=== PATIENT | male | born 1960 | race Caucasian/White ===

== ENCOUNTER 2018-05-15 08:21 | Inpatient (IN) | payer OTHER ==
[~2018-05-15] VITALS: Ht 167.6 cm; Wt 76.3 kg
[2018-05-15] MEDS ORDERED: HYDROmorphONE 1 MG/ML SYG IV STA (08:54)
[2018-05-15] MEDS ORDERED: ONDANSETRON 4 MG INJ IV STA (08:54)
--- NOTE | 2018-05-15 09:09 | ERD ---
ER Documentation Chief Complaint Chief Complaint Pt reports upper abd pain since 1600 HPI This is a 57-year-old male with a history of CHF, polio, complaining of 4 AM onset of diffuse severe abdominal pain that is much worse when he walks and better when he lays still. Pain is described as sharp. He had some nausea vomiting and diarrhea as well as was nonbloody and nonbilious. Denies any chest pain or shortness of breath. Denies any prior abdominal complaints ROS All systems reviewed and are negative except as per history of present illness. Medications Home Meds Reported Medications Nitroglycerin* (Nitroglycerin* SL) 0.4 Mg Tab.subl, 0.4 MG SL Q5MIN PRN for CHEST PAIN, BOTTLE 05/15/18 Allopurinol* (Allopurinol*) 100 Mg Tablet, 100 MG PO DAILY, TAB 05/15/18 Aspirin* (Aspirin* EC) 81 Mg Tablet.dr, 81 MG PO DAILY, TAB 05/15/18 Furosemide* (Furosemide*) 20 Mg Tablet, 20 MG PO BID, #30 TAB 05/15/18 Atorvastatin Calcium* (Atorvastatin Calcium*) 20 Mg Tablet, 20 MG PO QHS, #30 TAB 05/15/18 Omeprazole* (Omeprazole*) 40 Mg Capsule.dr, 40 MG PO DAILY, #30 CAP 05/15/18 Allergies Allergies: Coded Allergies: No Known Allergy (Unverified , 05/15/18) PMhx/Soc History of Surgery: No Anesthesia Reaction: No Hx Neurological Disorder: No Hx Respiratory Disorders: No Hx Cardiac Disorders: Yes (CHF, HTN) Hx Psychiatric Problems: No Hx Miscellaneous Medical Probl: Yes (Polio, Gout) Hx Alcohol Use: No Hx Substance Use: No Hx Tobacco Use: No Smoking Status: Never smoker FmHx Family History: No coronary disease Physical Exam Vitals Vital Signs Date Temp Pulse Resp B/P (MAP) Pulse Ox O2 O2 Flow FiO2 Time Delivery Rate 05/15/18 98.2 84 16 118/84 95 Room Air 10:15 (95) 05/15/18 2 09:00 05/15/18 98.0 82 14 128/96 95 Room Air 08:47 (107) 05/15/18 98.7 78 16 138/95 95 08:24 (109) Physical Exam Const: Well-developed, well-nourished Head: Atraumatic, normocephalic Eyes: Normal Conjunctiva, PERRLA, EOMI, normal sclera, no nystagmus ENT: Normal External Ears, Nose and Mouth, moist mucus membranes. Neck: Full range of motion. No meningismus, no lymphadenopathy. Resp: [No increased work of breathing, bilateral basilar rhonchi Cardio: Regular rate and rhythm, no murmurs, S1 S2 present Abd: Soft, she is moderate to severe tenderness, non distended. Normal bowel sounds, diffuse guarding, no pulsitile abdominal masses or bruits Skin: No petechiae or rashes, no ecchymosis , no maculopapular rash Back: No midline or flank tenderness Ext: No cyanosis, or edema, FROM x 4, normal inspection, neurovascu larly intact x 4 Neur: Awake and alert, STR 5/5 x 4, sensation intact x 4, no focal findings, cerebellum intact Psych: Normal Mood and Affect Result Diagram: 05/15/18 0909 05/15/18 0909 Results 24 hrs Laboratory Tests Test 05/15/18 09:09 05/15/18 13:00 White Blood Count 11.8 10^3/ul Red Blood Count 3.98 10^6/ul Hemoglobin 11.8 g/dl Hematocrit 38.0 % Mean Corpuscular Volume 95.5 fl Mean Corpuscular Hemoglobin 29.6 pg Mean Corpuscular Hemoglobin Concent 31.1 g/dl Red Cell Distribution Width 15.8 % Platelet Count 264 10^3/UL Mean Platelet Volume 10.7 fl Immature Granulocytes % 0.800 % Neutrophils % 82.4 % Lymphocytes % 9.6 % Monocytes % 5.8 % Eosinophils % 1.0 % Basophils % 0.4 % Nucleated Red Blood Cells % 0.0 /100WBC Immature Granulocytes # 0.090 10^3/ul Neutrophils # 9.7 10^3/ul Lymphocytes # 1.1 10^3/ul Monocytes # 0.7 10^3/ul Eosinophils # 0.1 10^3/ul Basophils # 0.1 10^3/ul Nucleated Red Blood Cells # 0.0 10^3/ul Sodium Level 140 mmol/L Potassium Level 2.8 mmol/L Chloride Level 105 mmol/L Carbon Dioxide Level 25 mmol/L Anion Gap 10 Blood Urea Nitrogen 18 mg/dl Creatinine 0.72 mg/dl Est Glomerular Filtrat Rate mL/min > 60 mL/min Glucose Level 77 mg/dl Calcium Level 9.2 mg/dl Total Bilirubin 0.6 mg/dl Direct Bilirubin 0.00 mg/dl Indirect Bilirubin 0.6 mg/dl Aspartate Amino Transf (AST/SGOT) 24 IU/L Alanine Aminotransferase (ALT/SGPT) 10 IU/L Alkaline Phosphatase 76 IU/L Troponin I 0.052 ng/ml B-Type Natriuretic Peptide 5260 PG/ML Total Protein 6.3 g/dl Albumin 3.4 g/dl Globulin 2.90 g/dl Albumin/Globulin Ratio 1.17 Lipase 107 U/L Urine Color YELLOW Urine Clarity CLEAR Urine pH 5.0 Urine Specific [place] 1.042 Urine Ketones NEGATIVE mg/dL Urine Nitrite NEGATIVE mg/dL Urine Bilirubin NEGATIVE mg/dL Urine Urobilinogen NEGATIVE mg/dL Urine Leukocyte Esterase NEGATIVE Tami/ul Urine Microscopic RBC 1 /HPF Urine Microscopic WBC 1 /HPF Urine Mucus FEW /HPF Urine Hemoglobin NEGATIVE mg/dL Urine Glucose NEGATIVE mg/dL Urine Total Protein 1+ mg/dl Current Medications Medications Dose Sig/Carmen Start Time Status Last (Trade) Ordered Route PRN Stop Time Admin Dose Reason Admin 1 mg ONCE STAT 05/15/18 DC 05/15/18 Hydromorphone IV 08:54 05/15/18 09:04 HCl 08:56 (Dilaudid) Ondansetron 4 mg ONCE STAT 05/15/18 DC 05/15/18 HCl (Zofran IV 08:54 05/15/18 09:04 Inj) 08:56 IV Flush 10 ml STK-MED 05/15/18 DC (NS 10 ml) ONCE .ROUTE 10:05/15/18 10:16 Sodium 100 ml @ ud STK-MED 05/15/18 DC Chloride ONCE .ROUTE 10:05/15/18 10:16 Iohexol 150 ml STK-MED 05/15/18 DC (Omnipaque ONCE .ROUTE 10:05/15/18 300mg/ ml) 10:16 IV Flush 10 ml STK-MED 05/15/18 DC 05/15/18 (NS 10 ml) ONCE .ROUTE 10:05/15/18 10:39 10:32 Sodium 100 ml @ ud STK-MED 05/15/18 DC 4/2/19 Chloride ONCE .ROUTE 10:31 05/15/18 10:39 10:32 Iohexol 150 ml STK-MED 05/15/18 DC 05/15/18 (Omnipaque ONCE .ROUTE 10:31 05/15/18 10:39 300mg/ ml) 10:32 Potassium 100 ml @ ONCE ONCE 05/15/18 DC Chloride 50 mls/hr IVPB 11:30 05/15/18 11:30 Potassium 40 meq ONCE ONCE 05/15/18 DC 05/15/18 Chloride PO 11:30 05/15/18 11:26 (Potassium 11:31 Chloride Pwd/Soln) Procedures/MDM Ordering MD: LESLIE LAM DO Location: E/R Room/Bed: PROCEDURE: CT Abdomen and Pelvis with contrast. CLINICAL INDICATION: Abdomen and pelvis pain. TECHNIQUE: CT scan of the abdomen and pelvis with contrast was performed. The patient was scanned following the uncomplicated intravenous administration of 100 cc of Omnipaque-300. Coronal and sagittal reformatted images were obtained from the axial source images. Images were reviewed on a high-resolution PACS workstation. Total exam DLP is 873.11 mGy-cm. CTDIvol is 14.91 mGy. One or more of the following dose reduction techniques were used: Automated exposure control, adjustment of the mA and/or kV according to patient size, use of iterative reconstruction technique. DICOM images are available. COMPARISON: None. FINDINGS: The lung bases are normal. There is no pleural effusion or pericardial effusion. The heart is markedly enlarged The liver is normal in size and diffusely decreased attenuation. There is no focal hepatic lesion. The gallbladder is distended but otherwise unremarkable. The bile ducts are normal. The spleen is normal in size. There is a focal region of decreased attenuation anteriorly in the spleen measuring 3.4 x 2.6 cm consistent with a probable infarct. There is no other focal splenic lesion. Both adrenals are normal with no enlargement or mass. The pancreas is unremarkable with no mass or evidence of pancreatitis. Both kidneys demonstrate normal contrast enhancement. There is no renal mass or hydronephrosis. The abdominal aorta is not dilated. There is calcification in the aorta consistent with atherosclerosis. There is no retroperitoneal lymphadenopathy or mass. There is no pelvic lymphadenopathy or mass. The bladder and distal ureters are normal. The periappendiceal region is unremarkable with no evidence of appendicitis. The bowel and mesentery are normal. There is no free fluid or free gas. There are degenerative changes of the spine. The osseous structures are otherwise unremarkable with no fracture or lytic lesion. IMPRESSION: 1. Marked cardiomegaly. 2. Fatty metamorphosis of the liver. 3. Distended but otherwise normal gallbladder. 4. Probable small splenic infarct. 5. Atherosclerosis. 6. Degenerative changes of the spine. 7. Otherwise unremarkable CT scan of the abdomen and pelvis. RPTAT: QQ Physician Gaurav Date Time Electronically viewed and signed by Physician Gaurav on 05/15/2018 13:47 KR/ CC: LESLIE LAM DO [id number] Ordering MD: LESLIE LAM DO Location: E/R Room/Bed: PROCEDURE: XR Chest. CLINICAL INDICATION: Chest Pain. TECHNIQUE: AP view of the chest was obtained COMPARISON: None. FINDINGS: No pulmonary consolidation or edema. No effusion or pneumothorax. Moderate cardiomegaly with prominent pulmonary vasculature. No evidence of acute frac ture. IMPRESSION: Moderate cardiomegaly with prominent pulmonary vasculature. Otherwise no evidence of acute cardiopulmonary process. RPTAT: UU Physician Ayesha Date Time Electronically viewed and signed by Physician Ayesha on 05/15/2018 13:30 RF/ CC: LESLIE LAM DO [id number] Patient is elevated BNP with signs of CHF on his chest x-ray and has O2 sats of 90-95% on room air with basilar rhonchi. Will admit him for diuresis carefully monitoring his potassium status. His abdominal CT scan is unremarkable. He also has elevated BNP. We will give a dose of Lasix here Departure Diagnosis: Primary Impression: CHF (congestive heart failure) Heart failure type: unspecified Heart failure chronicity: unspecified Qualified Codes: I50.9 - Heart failure, unspecified Additional Impression: Hypokalemia Condition: Stable LESLIE LAM DO May 15, 2018 09:09
[2018-05-15] MEDS ORDERED: IOHEXOL 300MG/ML 150 ML BTL ONE ×2 (10:15→10:31)
[2018-05-15] MEDS ORDERED: SOD CHLORIDE 0.9% 100 ML ONE ×2 (10:15→10:31)
[2018-05-15] MEDS ORDERED: ATOR20TA38 PO (10:36)
[2018-05-15] MEDS ORDERED: ASPI-817 PO (10:36)
[2018-05-15] MEDS ORDERED: OMEP40CA6 PO (10:36)
[2018-05-15] MEDS ORDERED: FURO20TA3 PO (10:36)
[2018-05-15] MEDS ORDERED: ALLO100T PO (10:37)
[2018-05-15] MEDS ORDERED: NITR0.4T32 SL (10:37)
[2018-05-15] MEDS ORDERED: POTASSIUM CHLORIDE 100 ML IVPB ONE (11:30)
[2018-05-15] MEDS ORDERED: POTASSIUM CHLORIDE 20 MEQ POWDER FOR ORAL SOLN PO ONE (11:30)
[2018-05-15] MEDS ORDERED: ONDANSETRON 4 MG INJ IV PRN ×2 (14:30→15:00)
[2018-05-15] MEDS ORDERED: ACETAMINOPHEN 325 MG TAB PO PRN ×2 (14:30→15:00)
[2018-05-15] MEDS ORDERED: FUROSEMIDE 40 MG INJ IV ONE (14:30)
[2018-05-15] MEDS ORDERED: NACL 0.9% 3 ML SYG IV SCH (15:00)
--- NOTE | 2018-05-15 15:02 | HP ---
Date/Time of Note Date/Time of Note DATE: 05/15/18 TIME: 15:02 Assessment/Plan VTE Prophylaxis Pharmacological prophylaxis: LMWH Lines/Catheters IV [facility]ter [facility]from [facility]): Saline Lock Assessment/Plan Hospital Course 57-year-old male with comorbidities including hypertension, congestive heart failure, gout, and poliomyelitis. The patient came to the emergency room with abdominal pain with negative abdominal imaging. However, the patient was noti josé antonio to have evidence of CHF exacerbation. The patient will be admitted to inpatient setting for further treatment and evaluation. 1. CHF exacerbation, acute on chronic. Systolic versus diastolic dysfunction. -Continue the patient on diuretic therapy. -Obtain cardiology consult -Obtain a 2D echocardiogram to evaluate the left ventricular ejection fraction. 2. Abdominal pain. -Etiology unclear. -CT scan essentially negative -Send stool studies. 3. Dyslipidemia. -Resume statins. 4. Gout. -Resume allopurinol. Plan: The patient will be admitted to inpatient telemetry floor. The patient will be started on a low-cholesterol diet. The patient will be started on DVT prophylaxis. The patient will remain a full code. Activities will be as tolerated. The rest of the patient's management will be based on the clinical course, inputs from consultants, and the results of diagnostic studies. Based on the patient's clinical presentation, he most probably requires at least 1 midnight's stay for further management and evaluation of his clinical presentation. The patient was seen in collaboration with Dr. Trejo. Result Diagram: 05/15/1890805/15/1809 Results 24hrs Laboratory Tests Test 05/15/18 09:09 05/15/18 13:00 White Blood Count 11.8 H Red Blood Count 3.98 L Hemoglobin 11.8 L Hematocrit 38.0 L Mean Corpuscular Volume 95.5 Mean Corpuscular Hemoglobin 29.6 Mean Corpuscular Hemoglobin Concent 31.1 L Red Cell Distribution Width 15.8 H Platelet Count 264 Mean Platelet Volume 10.7 H Immature Granulocytes % 0.800 H Neutrophils % 82.4 H Lymphocytes % 9.6 L Monocytes % 5.8 Eosinophils % 1.0 Basophils % 0.4 Nucleated Red Blood Cells % 0.0 Immature Granulocytes # 0.090 H Neutrophils # 9.7 H Lymphocytes # 1.1 Monocytes # 0.7 Eosinophils # 0.1 Basophils # 0.1 Nucleated Red Blood Cells # 0.0 Sodium Level 140 Potassium Level 2.8 *L Chloride Level 105 Carbon Dioxide Level 25 Anion Gap 10 Blood Urea Nitrogen 18 Creatinine 0.72 Est Glomerular Filtrat Rate mL/min > 60 Glucose Level 77 Calcium Level 9.2 Total Bilirubin 0.6 Direct Bilirubin 0.00 Indirect Bilirubin 0.6 Aspartate Amino Transf (AST/SGOT) 24 Alanine Aminotransferase (ALT/SGPT) 10 L Alkaline Phosphatase 76 Troponin I 0.052 B-Type Natriuretic Peptide 5260 H Total Protein 6.3 Albumin 3.4 Globulin 2.90 Albumin/Globulin Ratio 1.17 Lipase 107 Urine Color YELLOW Urine Clarity CLEAR Urine pH 5.0 Urine Specific [place] 1.042 H Urine Ketones NEGATIVE Urine Nitrite NEGATIVE Urine Bilirubin NEGATIVE Urine Urobilinogen NEGATIVE Urine Leukocyte Esterase NEGATIVE Urine Microscopic RBC 1 Urine Microscopic WBC 1 Urine Mucus FEW A Urine Hemoglobin NEGATIVE Urine Glucose NEGATIVE Urine Total Protein 1+ H HPI/ROS Admit Date/Time Admit Date/Time Hx of Present Illness Reason for admission: Abdominal pain, CHF exacerbation. Consultants 1. Goran Haley DO, Cardiology. This is a 57-year-old male with a past medical history of hypertension, congestive heart failure, dyslipidemia, gout, and poliomyelitis with right lower extremity weakness. The patient came to the emergency room with chief complaint of abdominal pain that started on the morning of 05/15/2018. The patient verbalized the abdominal pain as sharp with no radiation. The patient also verbalized associated nausea and nonbilious, nonbloody vomiting. The patient verbalized that he has been having diarrhea for the past few days. The patient verbalized that the he was recently discharged from [facility] following hospitalization. The patient is a poor historian and was unable to tell me what was the reason for his admission. The patient follows up with Dr. Miranda as outpatient for his cardiac issues. However, recently his insurance coverage he needs and is about to be seen by another outpatient plant associate in the near future. The patient denied any fevers or chills. The patient denied any chest pain or dyspnea. In the emergency room, the patient underwent a CT scan of the abdomen and pelvis that was negative for any acute findings. The patient was noticed to have elevated BNP. The patient's chest x-ray was showing moderate cardiomegaly with prominent pulmonary vasculature. The patient was treated with IV Lasix. The patient was also noticed to be hypokalemic with a potassium of 2.8. The patient was provided with potassium supplements. ROS Constitutional: no complaints Eyes: no complaints ENT: no complaints Respiratory: no complaints Cardiovascular: no complaints Gastrointestinal: pain, diarrhea, nausea, vomiting Genitourinary: no complaints Musculoskeletal: no complaints Skin: rash Neurologic: no complaints Endocrine: no complaints Lymphatic: no complaints Psychological: no complaints Immunologic: no complaints PMH/Family/Social Past Medical History 1. Hypertension. 2. Dyslipidemia. 3. CHF. 4. Poliomyelitis with RLE weakness. 5. Gout. Medications Current Medications Ondansetron HCl (Zofran Inj) 4 mg ER BRIDGE PRN IV NAUSEA/VOMITING; Start 05/15/18 at 14:30; Stop 05/16/18 at 14:29 Acetaminophen (Tylenol Tab) 650 mg ER BRIDGE PRN PO .MILD PAIN 1-3 OR TEMP; Start 05/15/18 at 14:30; Stop 05/16/18 at 14:29 Coded Allergies: No Known Allergy (Unverified , 05/15/18) Past Surgical History Past Surgical Hx: no surgical history Social History The patient lives at home with his family. Alcohol Use: none Smoking Status: Former smoker Drug Use: none Exam/Review of Systems Vital Signs Vitals Vital Signs Date Temp Pulse Resp B/P (MAP) Pulse Ox O2 O2 Flow FiO2 Time Delivery Rate 05/15/18 98.2 84 16 118/84 95 Room Air 10:15 (95) 05/15/18 2 09:00 Exam Exam General: Adequately build 57 year-old male lying in bed in no apparent distress. HEENT: Normocephalic, atraumatic. Eyes: Anicteric sclerae, conjunctivae clear. ENT: Nasal septum midline, oral mucosa moist. Neck supple. Respiratory: Bilaterally diminished breath sounds. No use of accessory muscles of respiration. No adventitious breath sounds. Cardiovascular: S1, S2 heard. Regular rate and rhythm Abdomen: Soft, nontender, and nondistended. Bowel sounds positive in all 4 quadrants. Genitourinary: Deferred. Extremities: No cyanosis, no clubbing. Right lower extremity muscle wasting. LLE trace edema. Neurologic: Cranial nerves II through XII grossly intact. The patient is awake, alert, and oriented. Additional Comments CXR IMPRESSION: Moderate cardiomegaly with prominent pulmonary vasculature. CT Abdomen & Pelvis IMPRESSION: 1. Marked cardiomegaly. 2. Fatty metamorphosis of the liver. 3. Distended but otherwise normal gallbladder. 4. Probable small splenic infarct. 5. Atherosclerosis. 6. Degenerative changes of the spine. 7. Otherwise unremarkable CT scan of the abdomen and pelvis. SHAYY PERRY NP May 15, 2018 15:02
[2018-05-15] MEDS: ENOXAPARIN 40 MG/0.4 ML SYG SC SCH (15:14)
[2018-05-15 17:00] VITALS: BP 117/83; PULSE 78; RESP 18
[2018-05-15 17:07] VITALS: PULSE 82
[2018-05-15 17:26] VITALS: Ht 167.6 cm; Wt 76.3 kg
[2018-05-15] MEDS ORDERED: POTASSIUM CHLORIDE (SR) 20 MEQ TAB PO STA (17:45)
--- NOTE | 2018-05-15 17:49 | CONS ---
Assessment/Plan Assessment/Plan Hospital Course (Demo Recall) Abdominal pain Acute decompensated congestive heart failure Dyslipidemia Polymyositis HypoK -Patient presents with abdominal pain and laboratory studies and chest x-ray with elevated BNP at evidence of mild pulmonary vascular congestion. -Denies any current shortness of breath, chest pain or palpitations. -We will obtain serial cardiac enzymes, echocardiogram, ECG -We will order additional potassium supplementation. Consultation Date/Type/Reason Admit Date/Time Type of Consult Cardiology Reason for Consultation Cardiology evaluation Date/Time of Note DATE: 05/15/18 TIME: 17:46 Hx of Present Illness This is a 57-year-old male with past medical history of congestive heart failure on home oxygen, polymyositis presents with severe abdominal pain. Pain can be crampy or sharp in nature. Denies any chest pain, dizziness or lightheadedness. He denies any shortness of breath currently. He does get tired and short winded with activity though. Denies any abdominal swelling or increased lower extremity swelling compared to baseline. 12 point review of systems was performed with all pertinent positives and negatives mentioned above and all else is negative Past Medical History Polymyositis Medical History: congestive heart failure, high cholesterol Home Meds Reported Medications Nitroglycerin* (Nitroglycerin* SL) 0.4 Mg Tab.subl, 0.4 MG SL Q5MIN PRN for CHEST PAIN, BOTTLE 05/15/18 Allopurinol* (Allopurinol*) 100 Mg Tablet, 100 MG PO DAILY, TAB 05/15/18 Aspirin* (Aspirin* EC) 81 Mg Tablet.dr, 81 MG PO DAILY, TAB 05/15/18 Furosemide* (Furosemide*) 20 Mg Tablet, 20 MG PO BID, #30 TAB 05/15/18 Atorvastatin Calcium* (Atorvastatin Calcium*) 20 Mg Tablet, 20 MG PO QHS, #30 TAB 05/15/18 Omeprazole* (Omeprazole*) 40 Mg Capsule.dr, 40 MG PO DAILY, #30 CAP 05/15/18 Medications Current Medications IV Flush (NS 3 ml) 3 ml PER PROTOCOL IV ; Start 05/15/18 at 15:00 Ondansetron HCl (Zofran Inj) 4 mg Q6H PRN IV NAUSEA/VOMITING; Start 05/15/18 at 15:00 Acetaminophen (Tylenol Tab) 650 mg Q6H PRN PO .PAIN 1-3 OR TEMP; Start 05/15/18 at 15:00 Enoxaparin Sodium (Lovenox) 40 mg DAILY SC Last administered on 05/15/18at 15:14; Admin Dose 40 MG; Start 05/15/18 at 16:00 Allopurinol (Zyloprim) 100 mg DAILY PO ; Start 05/16/18 at 09:00 Aspirin (Halfprin) 81 mg DAILY PO ; Start 05/16/18 at 09:00 Atorvastatin Calcium (Lipitor) 20 mg QHS PO ; Start 05/15/18 at 21:00 Furosemide (Lasix) 20 mg BID DIURETICS PO ; Start 05/15/18 at 18:00 Allergies: Coded Allergies: No Known Allergy (Unverified , 05/15/18) Past Surgical History Past Surgical Hx: no surgical history Social History Alcohol Use: none Smoking Status: Never smoker Drug Use: none Exam/Review of Systems Vital Signs Vitals Vital Signs Date Temp Pulse Resp B/P (MAP) Pulse Ox O2 O2 Flow FiO2 Time Delivery Rate 05/15/18 82 17:07 05/15/18 97.6 18 117/83 92 Nasal 2.0 17:00 (94) Cannula Exam Constitutional: alert, oriented (No apparent distress) Head: normocephalic Respiratory: other (Coarse breath sounds bilaterally, no wheezing) Cardiovascular: regular rate and rhythm (S1-S2 heard) Gastrointestinal: soft, non-tender, bowel sounds Extremities: edema Labs Result Diagram: 05/15/1809 05/15/18 0909 Results 24hrs Laboratory Tests Test 05/15/18 09:09 05/15/18 09:38 05/15/18 13:00 White Blood Count 11.8 H Red Blood Count 3.98 L Hemoglobin 11.8 L Hematocrit 38.0 L Mean Corpuscular Volume 95.5 Mean Corpuscular Hemoglobin 29.6 Mean Corpuscular Hemoglobin Concent 31.1 L Red Cell Distribution Width 15.8 H Platelet Count 264 Mean Platelet Volume 10.7 H Immature Granulocytes % 0.800 H Neutrophils % 82.4 H Lymphocytes % 9.6 L Monocytes % 5.8 Eosinophils % 1.0 Basophils % 0.4 Nucleated Red Blood Cells % 0.0 Immature Granulocytes # 0.090 H Neutrophils # 9.7 H Lymphocytes # 1.1 Monocytes # 0.7 Eosinophils # 0.1 Basophils # 0.1 Nucleated Red Blood Cells # 0.0 Sodium Level 140 Potassium Level 2.8 *L Chloride Level 105 Carbon Dioxide Level 25 Anion Gap 10 Blood Urea Nitrogen 18 Creatinine 0.72 Est Glomerular Filtrat Rate mL/min > 60 Glucose Level 77 Calcium Level 9.2 Total Bilirubin 0.6 Direct Bilirubin 0.00 Indirect Bilirubin 0.6 Aspartate Amino Transf (AST/SGOT) 24 Alanine Aminotransferase (ALT/SGPT) 10 L Alkaline Phosphatase 76 Troponin I 0.052 B-Type Natriuretic Peptide 5260 H Total Protein 6.3 Albumin 3.4 Globulin 2.90 Albumin/Globulin Ratio 1.17 Lipase 107 Hemoglobin A1c 5.1 Uric Acid 6.0 Magnesium Level 1.8 Urine Color YELLOW Urine Clarity CLEAR Urine pH 5.0 Urine Specific [place] 1.042 H Urine Ketones NEGATIVE Urine Nitrite NEGATIVE Urine Bilirubin NEGATIVE Urine Urobilinogen NEGATIVE Urine Leukocyte Esterase NEGATIVE Urine Microscopic RBC 1 Urine Microscopic WBC 1 Urine Mucus FEW A Urine Hemoglobin NEGATIVE Urine Glucose NEGATIVE Urine Total Protein 1+ H Urine Opiates Screen Positive Urine Barbiturates Negative Urine Amphetamines Screen Negative Urine Benzodiazepines Screen Negative Urine Cocaine Screen Negative Urine Cannabinoids Negative Medications Medications Current Medications IV Flush (NS 3 ml) 3 ml PER PROTOCOL IV ; Start 05/15/18 at 15:00 Ondansetron HCl (Zofran Inj) 4 mg Q6H PRN IV NAUSEA/VOMITING; Start 05/15/18 at 15:00 Acetaminophen (Tylenol Tab) 650 mg Q6H PRN PO .PAIN 1-3 OR TEMP; Start 05/15/18 at 15:00 Enoxaparin Sodium (Lovenox) 40 mg DAILY SC Last administered on 05/15/18at 15:14; Admin Dose 40 MG; Start 05/15/18 at 16:00 Allopurinol (Zyloprim) 100 mg DAILY PO ; Start 05/16/18 at 09:00 Aspirin (Halfprin) 81 mg DAILY PO ; Start 05/16/18 at 09:00 Atorvastatin Calcium (Lipitor) 20 mg QHS PO ; Start 05/15/18 at 21:00 Furosemide (Lasix) 20 mg BID DIURETICS PO ; Start 05/15/18 at 18:00 Goran Haley DO May 15, 2018 17:49
[2018-05-15] MEDS: FUROSEMIDE 20 MG TAB PO SCH (18:09)
[2018-05-15] MEDS ORDERED: MAGNESIUM SULFATE 3 GM in DEXTROSE 5% 100 ML IVPB ONE (19:30)
[2018-05-15 20:00] VITALS: BP 121/79; PULSE 80; PULSE 82; RESP 18
[2018-05-15] MEDS: ATORVASTATIN 20 MG TAB PO SCH (20:19)
[2018-05-16] VITALS (10 sets, daily range): BP systolic 112–145; BP diastolic 84–97; PULSE 68–103; RESP 18–20
[2018-05-16] MEDS: FUROSEMIDE 20 MG TAB PO SCH ×2 (06:33→17:49)
[2018-05-16] MEDS: ASPIRIN (EC) 81 MG TAB PO SCH (08:06)
[2018-05-16] MEDS: ALLOPURINOL 100 MG TAB PO SCH (08:07)
[2018-05-16] MEDS: ENOXAPARIN 40 MG/0.4 ML SYG SC SCH (08:36)
--- NOTE | 2018-05-16 10:08 | RADRPT ---
Vent Rate: 63 bpm RR Interval: 0 msec ND Interval: 176 msec QRS Duration: 150 msec QT Interval: 464 msec QTC Interval: 474 msec P-R-T [place]: 59 - 120 - -88 degrees Normal sinus rhythm Possible Left atrial enlargement Right bundle branch block Left posterior fascicular block Bifascicular block T wave abnormality, consider inferolateral ischemia Abnormal ECG Electronically Signed By: Alejo Pritchett
--- NOTE | 2018-05-16 13:17 | RADRPT ---
Echocardiogram Report Patient Name: SUZETTE FRANCISPatient ID: [id number] : 1960 (57y 9m)Study Date: 05/16/2018 8:43:43 AM Gender: Gurwinderion #: [id number] Tech: LE Location: Ref.Physician: SHAYY PERRY Height(Cm): BSA: Weight(Kg): Quality: GoodAccount #: Procedures: Echocardiographic Report: Transthoracic echocardiogram with complete 2D, M-Mode, and doppler examination. Indications: Evaluate Left Ventricular function. Measurements: 2D/M Mode Doppler Measurement Value Normal Range Measurement Value Normal Range AoR Diam MM 3.1 [ 2.6 - 3.4 ] cm DEANGELO Vmax 2.1 [ 2.0 - 4.0 ] cm2 ACS MM 2.0 [ 3.1 - 3.7 ] cm AV Mean Da 0.9 [ 70.0 - 90.0 ] cm/sec LA/Ao MM 1.6 ratio AV Mean PG 3.0 [ 2.0 - 4.0 ] mmHg LA Dimen MM 4.8 AV Peak Da 1.2 [ 100.0 - 170.0 ] cm/sec LVIDd 2D 3.9 [ 4.2 - 5.8 ] cm AV Peak PG 6.0 [ 2.0 - 9.0 ] mmHg LVPWd 2D 1.2 [ 0.6 - 1.0 ] cm AV VTI 19.1 cm IVSd 2D 1.2 [ 0.6 - 1.0 ] cm LVOT Peak Da 0.8 [ 70.0 - 110.0 ] cm/sec IVS/LVPW 2D 1.0 ratio LVOT Peak PG 3.0 [ 2.0 - 6.0 ] mmHg EF 2D 50.0 [ 52.0 - 72.0 ] percent MV E Peak Da 0.5 [ 60.0 - 130.0 ] cm/sec LVOT Diam 2.0 [ 2.3 - 2.9 ] cm MV A Peak Da 0.8 [ 100.0 - 120.0 ] cm/sec LVOT Area 3.1 cm2 MV E/A 0.6 [ 0.8 - 1.5 ] ratio MV Decel Time 229 [ 104 - 258 ] msec Lat E` Da 0.0 [ 10.0 - 15.0 ] cm/sec Med E` Da 0.0 cm/sec MV E/A 0.6 [ 0.8 - 1.5 ] ratio TR Peak Da 5.1 [ 100.0 - 280.0 ] cm/sec TR Peak PG 105.0 mmHg PV Peak Da 0.5 [ 40.0 - 80.0 ] cm/sec PV Peak PG 1.0 mmHg Findings: Left Ventricle: Lower limits of normal systolic function. Normal left ventricular cavity size. Mild concentric left ventricular hypertrophy. Ejection fraction is visually estimated at 50 %. Tissue Doppler/Mitral Doppler indices are consistent with impaired relaxation (Stage I diastolic dysfunction). Multiple segmental wall motion abnormalities. Right Ventricle: Moderate-severe right ventricular systolic dysfunction. Severe enlargement of right ventricle. Left Atrium: There is moderate enlargement of left atrium. Right Atrium: There is severe enlargement of right atrium. Mitral Valve: Normal appearance of the mitral valve. Mild mitral annular calcification. Mild mitral valve regurgitation. Aortic Valve: Normal appearance of the aortic valve. No significant aortic stenosis or insufficiency. Tricuspid Valve: Normal appearance of the tricuspid valve. Right ventricular systolic pressure is consistent with severe pulmonary hypertension. Estimated peak PA systolic pressure 120 mmHg. There is severe tricuspid regurgitation. Pulmonic Valve: Normal pulmonic valve appearance. There is mild pulmonic regurgitation. Pericardium: Trivial pericardial effusion. Aorta: Normal aortic root. IVC: Dilated inferior vena cava with poor inspiratory collapse consistent with elevated right atrial pressures. Conclusions: Lower limits of normal systolic function. Normal left ventricular cavity size. Mild concentric left ventricular hypertrophy. Ejection fraction is visually estimated at 50 %. Tissue Doppler/Mitral Doppler indices are consistent with impaired relaxation (Stage I diastolic dysfunction). Multiple segmental wall motion abnormalities. Moderate-severe right ventricular systolic dysfunction. Severe enlargement of right ventricle. There is moderate enlargement of left atrium. There is severe enlargement of right atrium. Right ventricular systolic pressure is consistent with severe pulmonary hypertension. Estimated peak PA systolic pressure 120 mmHg. There is severe tricuspid regurgitation. Mild mitral valve regurgitation. No significant aortic stenosis or insufficiency. Trivial pericardial effusion. Electronically Signed By: Goran Haley 2018-05-16 13:17:14 PDT
--- NOTE | 2018-05-16 13:22 | CONS ---
Assessment/Plan Assessment/Plan Hospital Course (Demo Recall) Abdominal pain Acute decompensated right ventricular and diastolic congestive heart failure Severe pulmonary hypertension Severe tricuspid valve regurgitation Dyslipidemia Polymyositis -Patient presents with abdominal pain and laboratory studies and chest x-ray with elevated BNP at evidence of mild pulmonary vascular congestion. -Echocardiogram performed demonstrated severe RV dysfunction with severe pulmonary hypertension -Would check VQ scan, lower extremity Doppler study, add Aldactone Consultation Date/Type/Reason Admit Date/Time May 15, 2018 at 14:10 Initial Consult Date Type of Consult Cardiology Date/Time of Note DATE: 05/16/18 TIME: 13:20 24 HR Interval Summary Free Text/Dictation Denies current shortness of breath. Abdominal pain is better. Denies dizziness or lightheadedness Exam/Review of Systems Vital Signs Vitals Vital Signs Date Temp Pulse Resp B/P (MAP) Pulse Ox O2 O2 Flow FiO2 Time Delivery Rate 05/16/18 2.0 12:14 05/16/18 78 12:00 05/16/18 98.1 20 124/89 90 Nasal 11:34 (101) Cannula Intake and Output 05/15/18 05/15/18 05/16/18 1515:00 23:00 07:00 IntakeIntake Total 106 ml 350 ml OutputOutput Total 400 ml BalanceBalance 106 ml -50 ml Exam Constitutional: alert, oriented (No apparent distress) Respiratory: other (Coarse breath sounds bilaterally, no wheezing) Cardiovascular: regular rate and rhythm (S1-S2 heard), systolic murmur Gastrointestinal: soft, non-tender, bowel sounds Extremities: edema Labs Result Diagram: 05/16/18 0530 05/16/18 0530 Results 24hrs Laboratory Tests Test 05/15/18 17:40 05/16/18 00:39 05/16/18 05:30 05/16/18 05:31 Sodium Level 141 142 Potassium Level 2.8 *L 3.8 Chloride Level 106 106 Carbon Dioxide Level 27 28 Anion Gap 8 8 Blood Urea Nitrogen 18 19 Creatinine 0.82 0.84 Est Glomerular Filtrat > 60 > 60 Rate mL/min Glucose Level 96 82 Calcium Level 8.8 9.2 Magnesium Level 1.7 2.2 Creatine Kinase < 20 L < 20 L Creatine Kinase Index Creatinine Kinase MB 1.08 0.93 (Mass) Troponin I 0.043 0.057 White Blood Count 6.3 # Red Blood Count 3.62 L Hemoglobin 10.7 L Hematocrit 34.8 L Mean Corpuscular Volume 96.1 Mean Corpuscular 29.6 Hemoglobin Mean Corpuscular 30.7 L Hemoglobin Concent Red Cell Distribution 16.1 H Width Platelet Count 216 Mean Platelet Volume 10.3 Immature Granulocytes % 0.500 H Neutrophils % 73.5 Lymphocytes % 15.1 Monocytes % 7.6 Eosinophils % 2.4 Basophils % 0.9 Nucleated Red Blood 0.0 Cells % Immature Granulocytes # 0.030 Neutrophils # 4.7 Lymphocytes # 1.0 Monocytes # 0.5 Eosinophils # 0.2 Basophils # 0.1 Nucleated Red Blood 0.0 Cells # Phosphorus Level 3.8 Triglycerides Level 59 Cholesterol Level 91 L LDL Cholesterol, 48 Calculated HDL Cholesterol 31 Cholesterol/HDL Ratio 2.9 B-Type Natriuretic 3340 H Peptide Medications Medications Current Medications IV Flush (NS 3 ml) 3 ml PER PROTOCOL IV ; Start 05/15/18 at 15:00 Ondansetron HCl (Zofran Inj) 4 mg Q6H PRN IV NAUSEA/VOMITING; Start 05/15/18 at 15:00 Acetaminophen (Tylenol Tab) 650 mg Q6H PRN PO .PAIN 1-3 OR TEMP; Start 05/15/18 at 15:00 Enoxaparin Sodium (Lovenox) 40 mg DAILY SC Last administered on 05/16/18at 08:36; Admin Dose 40 MG; Start 05/15/18 at 16:00 Allopurinol (Zyloprim) 100 mg DAILY PO Last administered on 05/16/18at 08:07; Admin Dose 100 MG; Start 05/16/18 at 09:00 Aspirin (Halfprin) 81 mg DAILY PO Last administered on 05/16/18at 08:06; Admin Dose 81 MG; Start 05/16/18 at 09:00 Atorvastatin Calcium (Lipitor) 20 mg QHS PO Last administered on 05/15/18 20:19; Admin Dose 20 MG; Start 05/15/18 at 21:00 Furosemide (Lasix) 20 mg BID DIURETICS PO Last administered on 05/16/18 06:33; Admin Dose 20 MG; Start 05/15/18 at 18:00 Goran Haley DO May 16, 2018 13:22
[2018-05-16] MEDS ORDERED: POTASSIUM CHLORIDE (SR) 20 MEQ TAB PO STA (13:23)
--- NOTE | 2018-05-16 14:01 | PN ---
Date/Time of Note Date/Time of Note DATE: 05/16/18 TIME: 13:57 Assessment/Plan VTE Prophylaxis Risk score (from Ns)>0 risk: 3 SCD applied (from [facility]): No SCD contraindicated: other Pharmacological prophylaxis: LMWH Lines/Catheters IV Catheter Type (from [facility]): Peripheral IV Urinary Cath still in place: No Assessment/Plan Hospital Course SUBJECTIVE: Denies any abdominal pain. OBJECTIVE: Physical Exam General: Adequately build 57 year-old male lying in bed in no apparent distress. HEENT: Normocephalic, atraumatic. Eyes: Anicteric sclerae, conjunctivae clear. ENT: Nasal septum midline, oral mucosa moist. Neck supple. Respiratory: Bilaterally diminished breath sounds. No use of accessory muscles of respiration. No adventitious breath sounds. Cardiovascular: S1, S2 heard. Regular rate and rhythm Abdomen: Soft, nontender, and nondistended. Bowel sounds positive in all 4 quadrants. Genitourinary: Deferred. Extremities: No cyanosis, no clubbing. Right lower extremity muscle wasting. LLE trace edema. Neurologic: Cranial nerves II through XII grossly intact. The patient is awake, alert, and oriented. Labs & Vitals per chart ASSESSMENT & PLAN 57-year-old male with comorbidities including hypertension, congestive heart failure, gout, and poliomyelitis. The patient came to the emergency room with abdominal pain with negative abdominal imaging. However, the patient was noticed to have evidence of CHF exacerbation. The patient was admitted to inpatient setting for further treatment and evaluation. 1. CHF exacerbation, acute on chronic diastolic dysfunction. -Continue the patient on diuretic therapy. -Cardiology following. 2. Abdominal pain. -Etiology unclear. -CT scan essentially negative -Stool studies pending. 3. Dyslipidemia. -Continue statins. 4. Gout. -Continue allopurinol. 5. Severe pulmonary hypertension. -PA systolic pressure of 120 mmHg as per 2D echocardiogram. -Etiology unclear -Continue supplemental oxygen. -Obtain pulmonology consult. 6. Fluids, electrolytes, and nutrition. -Low-cholesterol diet. 7. DVT prophylaxis. -Subcutaneous Lovenox. 8. Plan. -Continue diuresis. -Further workup for pulmonary hypertension including evaluation for any PE. -Obtain pulmonology consult. Case discussed with cardiology. The patient was seen in collaboration with Dr. Trejo. Result Diagram: 05/16/1830 05/16/18 0530 Results 24hrs Laboratory Tests Test 05/15/18 17:40 05/16/18 00:39 05/16/18 05:30 05/16/18 05:31 Sodium Level 141 142 Potassium Level 2.8 *L 3.8 Chloride Level 106 106 Carbon Dioxide Level 27 28 Anion Gap 8 8 Blood Urea Nitrogen 18 19 Creatinine 0.82 0.84 Est Glomerular Filtrat > 60 > 60 Rate mL/min Glucose Level 96 82 Calcium Level 8.8 9.2 Magnesium Level 1.7 2.2 Creatine Kinase < 20 L < 20 L Creatine Kinase Index Creatinine Kinase MB 1.08 0.93 (Mass) Troponin I 0.043 0.057 White Blood Count 6.3 # Red Blood Count 3.62 L Hemoglobin 10.7 L Hematocrit 34.8 L Mean Corpuscular Volume 96.1 Mean Corpuscular 29.6 Hemoglobin Mean Corpuscular 30.7 L Hemoglobin Concent Red Cell Distribution 16.1 H Width Platelet Count 216 Mean Platelet Volume 10.3 Immature Granulocytes % 0.500 H Neutrophils % 73.5 Lymphocytes % 15.1 Monocytes % 7.6 Eosinophils % 2.4 Basophils % 0.9 Nucleated Red Blood 0.0 Cells % Immature Granulocytes # 0.030 Neutrophils # 4.7 Lymphocytes # 1.0 Monocytes # 0.5 Eosinophils # 0.2 Basophils # 0.1 Nucleated Red Blood 0.0 Cells # Phosphorus Level 3.8 Triglycerides Level 59 Cholesterol Level 91 L LDL Cholesterol, 48 Calculated HDL Cholesterol 31 Cholesterol/HDL Ratio 2.9 B-Type Natriuretic 3340 H Peptide Exam/Review of Systems Exam Vitals Vital Signs Date Temp Pulse Resp B/P (MAP) Pulse Ox O2 O2 Flow FiO2 Time Delivery Rate 05/16/18 2.0 12:14 05/16/18 78 12:00 05/16/18 98.1 20 124/89 90 Nasal 11:34 (101) Cannula Intake and Output 05/15/18 05/15/18 05/16/18 1515:00 23:00 07:00 IntakeIntake Total 106 ml 350 ml OutputOutput Total 400 ml BalanceBalance 106 ml -50 ml Results Results 24hrs Laboratory Tests Test 05/15/18 17:40 05/16/18 00:39 05/16/18 05:30 05/16/18 05:31 Sodium Level 141 142 Potassium Level 2.8 *L 3.8 Chloride Level 106 106 Carbon Dioxide Level 27 28 Anion Gap 8 8 Blood Urea Nitrogen 18 19 Creatinine 0.82 0.84 Est Glomerular Filtrat > 60 > 60 Rate mL/min Glucose Level 96 82 Calcium Level 8.8 9.2 Magnesium Level 1.7 2.2 Creatine Kinase < 20 L < 20 L Creatine Kinase Index Creatinine Kinase MB 1.08 0.93 (Mass) Troponin I 0.043 0.057 White Blood Count 6.3 # Red Blood Count 3.62 L Hemoglobin 10.7 L Hematocrit 34.8 L Mean Corpuscular Volume 96.1 Mean Corpuscular 29.6 Hemoglobin Mean Corpuscular 30.7 L Hemoglobin Concent Red Cell Distribution 16.1 H Width Platelet Count 216 Mean Platelet Volume 10.3 Immature Granulocytes % 0.500 H Neutrophils % 73.5 Lymphocytes % 15.1 Monocytes % 7.6 Eosinophils % 2.4 Basophils % 0.9 Nucleated Red Blood 0.0 Cells % Immature Granulocytes # 0.030 Neutrophils # 4.7 Lymphocytes # 1.0 Monocytes # 0.5 Eosinophils # 0.2 Basophils # 0.1 Nucleated Red Blood 0.0 Cells # Phosphorus Level 3.8 Triglycerides Level 59 Cholesterol Level 91 L LDL Cholesterol, 48 Calculated HDL Cholesterol 31 Cholesterol/HDL Ratio 2.9 B-Type Natriuretic 3340 H Peptide Medications Medication Current Medications IV Flush (NS 3 ml) 3 ml PER PROTOCOL IV ; Start 05/15/18 at 15:00 Ondansetron HCl (Zofran Inj) 4 mg Q6H PRN IV NAUSEA/VOMITING; Start 05/15/18 at 15:00 Acetaminophen (Tylenol Tab) 650 mg Q6H PRN PO .PAIN 1-3 OR TEMP; Start 05/15/18 at 15:00 Enoxaparin Sodium (Lovenox) 40 mg DAILY SC Last administered on 05/16/18at 08:36; Admin Dose 40 MG; Start 05/15/18 at 16:00 Allopurinol (Zyloprim) 100 mg DAILY PO Last administered on 05/16/18at 08:07; Admin Dose 100 MG; Start 05/16/18 at 09:00 Aspirin (Halfprin) 81 mg DAILY PO Last administered on 05/16/18at 08:06; Admin Dose 81 MG; Start 05/16/18 at 09:00 Atorvastatin Calcium (Lipitor) 20 mg QHS PO Last administered on 05/15/18at 20:19; Admin Dose 20 MG; Start 05/15/18 at 21:00 Furosemide (Lasix) 20 mg BID DIURETICS PO Last administered on 05/16/18at 06:33; Admin Dose 20 MG; Start 05/15/18 at 18:00 Spironolactone (Aldactone) 25 mg DAILY PO ; Start 05/16/18 at 13:30 SHAYY PERRY NP May 16, 2018 14:01
[2018-05-16] MEDS: SPIRONOLACTONE 25 MG TAB PO SCH (14:28)
[2018-05-16] MEDS: ATORVASTATIN 20 MG TAB PO SCH (20:45)
[2018-05-17] VITALS (11 sets, daily range): BP systolic 115–135; BP diastolic 80–95; PULSE 62–81; RESP 18
[2018-05-17] MEDS ORDERED: IOHEXOL 100 ML ONE (02:04)
[2018-05-17] MEDS ORDERED: SOD CHLORIDE 0.9% 100 ML ONE (02:04)
[2018-05-17] MEDS: FUROSEMIDE 20 MG TAB PO SCH ×2 (05:26→16:51)
[2018-05-17] MEDS: SPIRONOLACTONE 25 MG TAB PO SCH (08:28)
[2018-05-17] MEDS: ASPIRIN (EC) 81 MG TAB PO SCH (08:28)
[2018-05-17] MEDS: ALLOPURINOL 100 MG TAB PO SCH (08:28)
[2018-05-17] MEDS: ENOXAPARIN 40 MG/0.4 ML SYG SC SCH (08:32)
--- NOTE | 2018-05-17 10:59 | CONS ---
DATE OF ADMISSION: 05/15/2018 DATE OF CONSULTATION: REASON FOR CONSULTATION: Shortness of breath and pulmonary hypertension. HISTORY OF PRESENT ILLNESS: This is a 57-year-old gentleman who presented to [facility] with acute shortness of breath thought secondary to diastolic dysfunction on echocardiogram. Ananya castanon has a past medical history of CHF, poliomyelitis, essential hypertension and exertional dyspnea. Ananya castanon improved with gentle diuresis, echocardiogram; however, demonstrate severe pulmonary hypertension. PA pressure was noted to be 120 with severe tricuspid regurgitation. Patient denies any prior respi ratory problems. Currently states he is no longer short of breath. No prior history of inhalational lung injury. SOCIAL HISTORY: Ex-smoker, no alcohol, no history of drug abuse per patient. PAST MEDICAL HISTORY: As above. MEDICATIONS: Per chart. ALLERGIES: NONE. SOCIAL HISTORY: Nonsmoker, no alcohol, no history of drug use. FAMILY HISTORY: Noncontributory. SYSTEMS REVIEW: A 12-point review of systems was negative other than that mentioned. PHYSICAL EXAMINATION: GENERAL: Well-nourished, well-developed gentleman, appears comfortable at rest, no acute distress. VITAL SIGNS: Currently afebrile, pulse is 80, blood pressure 134/95, O2 saturation 96% on 2 L nasal cannula. He does have home O2. NECK: Supple. No JVD or lymphadenopathy. CARDIAC: Sounds S1, S2, II/ systolic ejection murmur. CHEST: Diminished air entry bilaterally. ABDOMEN: Soft, nontender. No guarding or rebound. EXTREMITIES: No cyanosis, clubbing, 1+ edema. NEUROLOGIC: Generalized weakness. LABORATORY DATA: White count 6.9, hemoglobin 10, platelets 214. BUN 22, creatinine 0.87, BNP elevat ed at 4120. DIAGNOSTIC DATA: CT angiogram negative for pulmonary embolus, VQ scan also low probability PE. IMPRESSION AND PLAN: 1. Severe pulmonary hypertension with diastolic dysfunction. Unclear etiology of severe pulmonary h ypertension. I will ask the patient again about possible history of substance abuse, such as methamp hetamine or cocaine. Currently, however, pulmonary hypertension needs to be addressed, and will need to be initiated on Sildenafil 20 mg t.i.d. In addition, I will send workup for possible vasculitis, including MIMI, HIV and hepatitis serology. Thank you again for this consultation. Dictated By: SHELIA GLOVER MD SV/BABITA Conf#: [id number] [facility]#: [id number] CC: YORDY SAMS DO; JIGNA HENAO MD;*EndCC*
[2018-05-17] MEDS ORDERED: SPIR25TA PO (12:11)
[2018-05-17] MEDS ORDERED: SILD20TA13 PO (12:11)
--- NOTE | 2018-05-17 12:15 | PDOCDIS ---
Discharge Instructions CONDITION [id number] Patient Condition: [id number] Stable HOME CARE INSTRUCTIONS: [id number] Diet Instructions: [id number] Low Fat /Cholesterol ACTIVITY: [id number] Activity Restrictions: Myenu9l Slowly Increase Activity Rest between Activity FOLLOW UP/APPOINTMENTS Follow-up Plan 1. Follow-up with your iv technician as scheduled. 2. Follow-up with pulmonology (please check with insurance for physician assignment). OTHER ORDERS: Other Orders: 1. Resume home medications. Start taking Aldactone and Revatio. 2. Take a low-cholesterol diet. 3. Resume activities as tolerated. 4. Please follow-up with your iv technician as scheduled. 5. Please have your insurance arrange for outpatient pulmonology follow-up 6. Please go to the nearest emergency room if you have any chest pain, significant shortness of breath, or any other unusual signs/symptoms. SHAYY PERRY NP May 17, 2018 12:15
--- NOTE | 2018-05-17 12:19 | DS ---
Date/Time of Note Date/Time of Note DATE: 05/17/18 TIME: 12:16 Discharge Summary Admission/Discharge Info Admit Date/Time May 15, 2018 at 14:10 Discharge Date/Time Discharge Diagnosis 1. CHF exacerbation, acute on chronic diastolic dysfunction. 2. Abdominal pain. Resolved. 3. Dyslipidemia. 4. Gout. 5. Severe pulmonary hypertension. PA systolic pressure of 120 mmHg as per 2D echocardiogram. 6. History of poliomyelitis. Patient Condition: Stable Consults 1. Goran Haley DO, Cardiology. 2. Ludwig Marquez MD, Pulmonary. Procedures 2D Echocardiogram Conclusions: Lower limits of normal systolic function. Normal left ventricular cavity size. Mild concentric left ventricular hypertrophy. Ejection fraction is visually estimated at 50 %. Tissue Doppler/Mitral Doppler indices are consistent with impaired relaxation (Stage I diastolic dysfunction). Multiple segmental wall motion abnormalities. Moderate-severe right ventricular systolic dysfunction. Severe enlargement of right ventricle. There is moderate enlargement of left atrium. There is severe enlargement of right atrium. Right ventricular systolic pressure is consistent with severe pulmonary hypertension. Estimated peak PA systolic pressure 120 mmHg. There is severe tricuspid regurgitation. Mild mitral valve regurgitation. No significant aortic stenosis or insufficiency. Trivial pericardial effusion. CT Abdomen and Pelvis IMPRESSION: 1. Marked cardiomegaly. 2. Fatty metamorphosis of the liver. 3. Distended but otherwise normal gallbladder. 4. Probable small splenic infarct. 5. Atherosclerosis. 6. Degenerative changes of the spine. 7. Otherwise unremarkable CT scan of the abdomen and pelvis. CTA Chest IMPRESSION: 1. No evidence of a pulmonary embolism. 2. Enlarged pulmonary arteries consistent with pulmonary hypertension. 3. Cardiomegaly. Dense intravenous contrast in the intrahepatic inferior vena cava and hepatic veins which may reflect right-sided heart failure. 4. Anasarca. 5. Resolved bilateral lower lobe nodular opacities likely infectious or inflammatory in etiology. Hx of Present Illness Reason for admission: Abdominal pain, CHF exacerbation. Consultants 1. Goran Haley DO, Cardiology. This is a 57-year-old male with a past medical history of hypertension, congestive heart failure, dyslipidemia, gout, and poliomyelitis with right lower extremity weakness. The patient came to the emergency room with chief complaint of abdominal pain that started on the morning of 05/15/2018. The patient verbalized the abdominal pain as sharp with no radiation. The patient also verbalized associated nausea and nonbilious, nonbloody vomiting. The patient verbalized that he has been having diarrhea for the past few days. The patient verbalized that the he was recently discharged from following hospitalization. The patient is a poor historian and was unable to tell me what was the reason for his admission. The patient follows up with Dr. Miranda as outpatient for his cardiac issues. However, recently his insurance coverage he needs and is about to be seen by another outpatient casework specialist in the near future. The patient denied any fevers or chills. The patient denied any chest pain or dyspnea. In the emergency room, the patient underwent a CT scan of the abdomen and pelvis that was negative for any acute findings. The patient was noticed to have elevated BNP. The patient's chest x-ray was showing moderate cardiomegaly with prominent pulmonary vasculature. The patient was treated with IV Lasix. The patient was also noticed to be hypokalemic with a potassium of 2.8. The patient was provided with potassium supplements. Hospital Course The patient was admitted to inpatient setting for further treatment and evaluation. A cardiology consult was obtained. The patient underwent a 2D echocardiogram that was showing evidence of diastolic heart failure. The patient also had evidence of severe pulmonary hypertension with a PA systolic pressure of 120mmHg. The patient was maintained on diuretic therapy with loop diuretics. The patient was also started on aldosterone antagonist. A pulmonology consult was obtained for severe pulmonary hypertension. The patient was started on phosphodiesterase inhibitors. The etiology of the patient's underlying pulmonary hypertension remains unclear. Further workup was done including any thromboembolic disease. The patient's CT pulmonary angiogram was negative for any PE. The patient's venous Doppler study of bilateral lower extremities were negative. Further studies including workup for vasculitis are pending at this time. Meanwhile, case management order was put in for arrangement with insurance for outpatient pulmonology follow-up. The patient's abdominal pain resolved after the patient was admitted to inpatient setting. The patient's CT abdomen and pelvis was negative for any acute findings. Stool studies were ordered on this patient. Nevertheless, for unclear reasons, no stool studies were sent on this patient. The patient's chronic problems include dyslipidemia. The patient was continued on statins. The patient has a history of gout. The patient was continued on allopurinol. The patient's uric acid levels were within normal limits. The patient has a remote history of poliomyelitis with right lower extremity weakness. The patient had a stable hospital course. The patient was cleared by consultants to be discharged home. Discharge Instructions 1. Resume home medications. Start taking Aldactone and Revatio. 2. Take a low-cholesterol diet. 3. Resume activities as tolerated. 4. Please follow-up with your casework specialist as scheduled. 5. Please have your insurance arrange for outpatient pulmonology follow-up 6. Please go to the nearest emergency room if you have any chest pain, significant shortness of breath, or any other unusual signs/symptoms. The patient verbalized understanding of his discharge instructions. At this time I would like to thank all the consultants for seeing the patient and providing clinical recommendations. The patient was seen in collaboration with Dr. Trejo. Home Meds Active Scripts Nitroglycerin* (Nitroglycerin* SL) 0.4 Mg Tab.subl, 0.4 MG SL Q5MIN PRN for CHEST PAIN, #1 BOTTLE Prov:SHAYY PERRY PRODUCTION OPERATIONS INSPECTOR 05/17/18 Spironolactone* (Aldactone*) 25 Mg Tablet, 25 MG PO DAILY, #30 TAB Prov:SHAYY PERRY PRODUCTION OPERATIONS INSPECTOR 05/17/18 Sildenafil Citrate* (Revatio*) 20 Mg Tab, 20 MG PO TID, #90 TAB Prov:SHAYY PERRY PRODUCTION OPERATIONS INSPECTOR 05/17/18 Reported Medications Allopurinol* (Allopurinol*) 100 Mg Tablet, 100 MG PO DAILY, TAB 05/15/18 Aspirin* (Aspirin* EC) 81 Mg Tablet., 81 MG PO DAILY, TAB 05/15/18 Furosemide* (Furosemide*) 20 Mg Tablet, 20 MG PO BID, #30 TAB 05/15/18 Atorvastatin Calcium* (Atorvastatin Calcium*) 20 Mg Tablet, 20 MG PO QHS, #30 TAB 05/15/18 Omeprazole* (Omeprazole*) 40 Mg Capsule.dr, 40 MG PO DAILY, #30 CAP 05/15/18 Discontinued Reported Medications Nitroglycerin* (Nitroglycerin* SL) 0.4 Mg Tab.subl, 0.4 MG SL Q5MIN PRN for CHEST PAIN, BOTTLE 05/15/18 Follow-up Plan 1. Follow-up with your casework specialist as scheduled. 2. Follow-up with pulmonology (please check with insurance for physician assignment). Primary Care Provider Care Physician No Primary Time spent on discharge: > 30 minutes Pending Labs Laboratory Tests Test 05/17/18 04:58 05/17/18 10:54 White Blood Count 6.9 10^3/ul (4.8-10.8) Red Blood Count 3.42 10^6/ul (4.70-6.10) Hemoglobin 10.0 g/dl (14.0-18.0) Hematocrit 32.7 % (42.0-52.0) Mean Corpuscular Volume 95.6 fl (82.0-101.0) Mean Corpuscular Hemoglobin 29.2 pg (29.0-33.0) Mean Corpuscular Hemoglobin Concent 30.6 g/dl (32.0-37.0) Red Cell Distribution Width 15.8 % (11.5-14.5) Platelet Count 214 10^3/UL (140-415) Mean Platelet Volume 10.5 fl (7.4-10.4) Immature Granulocytes % 0.600 % (0.001-0.429) Neutrophils % 79.1 % (39.0-77.0) Lymphocytes % 12.0 % (15.0-51.0) Monocytes % 6.4 % (0.0-11.0) Eosinophils % 1.6 % (0.0-7.0) Basophils % 0.3 % (0.0-2.0) Nucleated Red Blood Cells % 0.0 /100WBC (0.0-0.0) Immature Granulocytes # 0.040 10^3/ul (0.0-0.031) Neutrophils # 5.5 10^3/ul (1.6-7.5) Lymphocytes # 0.8 10^3/ul (0.8-2.9) Monocytes # 0.4 10^3/ul (0.3-0.9) Eosinophils # 0.1 10^3/ul (0.0-0.5) Basophils # 0.0 10^3/ul (0.0-0.1) Nucleated Red Blood Cells # 0.0 10^3/ul (0.0-0.0) Sodium Level 139 mmol/L (135-144) Potassium Level 3.7 mmol/L (3.5-5.1) Chloride Level 106 mmol/L (97-110) Carbon Dioxide Level 26 mmol/L (21-31) Anion Gap 7 (5-13) Blood Urea Nitrogen 22 mg/dl (7-20) Creatinine 0.87 mg/dl (0.61-1.24) Est Glomerular Filtrat Rate mL/min > 60 mL/min (>60) Glucose Level 90 mg/dl (70-220) Calcium Level 9.2 mg/dl (8.4-10.2) Phosphorus Level 3.6 mg/dl (2.5-4.9) Magnesium Level 2.0 mg/dl (1.7-2.5) B-Type Natriuretic Peptide 4120 PG/ML (0-125) Hepatitis B Surface Antigen Pending Hepatitis B Core Total Antibody Pending Hepatitis C Antibody Pending HIV (1&2) Antibody Pending SHAYY PERRY NP May 17, 2018 12:19
[2018-05-17] MEDS ORDERED: NITR0.4T32 SL (12:32)
[2018-05-17] MEDS: SILDENAFIL 20 MG TAB PO SCH ×2 (14:44→20:45)
--- NOTE | 2018-05-17 15:43 | CONS ---
Assessment/Plan Cardiology NYHA: II Heart Failure Type: Acute Heart Failure Type: Diastolic Assessment/Plan Hospital Course (Demo Recall) Abdominal pain Acute decompensated right ventricular and diastolic congestive heart failure Severe pulmonary hypertension Severe tricuspid valve regurgitation Dyslipidemia Polymyositis -VQ scan negative for pulmonary emboli -Patient has been started on sildenafil, titrate as blood pressure tolerates -Continue diuretics as renal function blood pressure permits -Outpatient referral to pulmonary hypertension specialist Consultation Date/Type/Reason Admit Date/Time May 15, 2018 at 14:10 Initial Consult Date Type of Consult Cardiology Date/Time of Note DATE: 05/17/18 TIME: 15:40 24 HR Interval Summary Free Text/Dictation Denies shortness of breath, palpitations or chest pain Exam/Review of Systems Vital Signs Vitals Vital Signs Date Temp Pulse Resp B/P (MAP) Pulse Ox O2 O2 Flow FiO2 Time Delivery Rate 05/17/18 98.3 78 18 130/94 92 14:54 (106) 05/17/18 Nasal 2.0 07:54 Cannula Intake and Output 05/16/18 05/16/18 05/17/18 1515:00 23:00 07:00 IntakeIntake Total 1140 ml 400 ml OutputOutput Total 800 ml 600 ml BalanceBalance 340 ml -200 ml Exam Constitutional: alert, oriented (No apparent distress) Respiratory: other (Coarse breath sounds bilaterally, no wheezing) Cardiovascular: regular rate and rhythm, systolic murmur Gastrointestinal: soft, non-tender, bowel sounds Extremities: edema Labs Result Diagram: 05/17/18 0458 05/17/18 0458 Results 24hrs Laboratory Tests Test 05/17/18 04:58 05/17/18 10:54 White Blood Count 6.9 Red Blood Count 3.42 L Hemoglobin 10.0 L Hematocrit 32.7 L Mean Corpuscular Volume 95.6 Mean Corpuscular Hemoglobin 29.2 Mean Corpuscular Hemoglobin Concent 30.6 L Red Cell Distribution Width 15.8 H Platelet Count 214 Mean Platelet Volume 10.5 H Immature Granulocytes % 0.600 H Neutrophils % 79.1 H Lymphocytes % 12.0 L Monocytes % 6.4 Eosinophils % 1.6 Basophils % 0.3 Nucleated Red Blood Cells % 0.0 Immature Granulocytes # 0.040 H Neutrophils # 5.5 Lymphocytes # 0.8 Monocytes # 0.4 Eosinophils # 0.1 Basophils # 0.0 Nucleated Red Blood Cells # 0.0 Sodium Level 139 Potassium Level 3.7 Chloride Level 106 Carbon Dioxide Level 26 Anion Gap 7 Blood Urea Nitrogen 22 H Creatinine 0.87 Est Glomerular Filtrat Rate mL/min > 60 Glucose Level 90 Calcium Level 9.2 Phosphorus Level 3.6 Magnesium Level 2.0 B-Type Natriuretic Peptide 4120 H Hepatitis B Surface Antigen NEGATIVE Hepatitis B Surface Antibody NEGATIVE Hepatitis B Core Total Antibody NEGATIVE Hepatitis C Antibody NEGATIVE HIV (1&2) Antibody NEGATIVE Medications Medications Current Medications IV Flush (NS 3 ml) 3 ml PER PROTOCOL IV ; Start 05/15/18 at 15:00 Ondansetron HCl (Zofran Inj) 4 mg Q6H PRN IV NAUSEA/VOMITING; Start 05/15/18 at 15:00 Acetaminophen (Tylenol Tab) 650 mg Q6H PRN PO .PAIN 1-3 OR TEMP; Start 05/15/18 at 15:00 Enoxaparin Sodium (Lovenox) 40 mg DAILY SC Last administered on 05/17/18 08:32; Admin Dose 40 MG; Start 05/15/18 at 16:00 Allopurinol (Zyloprim) 100 mg DAILY PO Last administered on 05/17/18 08:28; Admin Dose 100 MG; Start 05/16/18 at 09:00 Aspirin (Halfprin) 81 mg DAILY PO Last administered on 05/17/18 08:28; Admin Dose 81 MG; Start 05/16/18 at 09:00 Atorvastatin Calcium (Lipitor) 20 mg QHS PO Last administered on 05/16/18 20:45; Admin Dose 20 MG; Start 05/15/18 at 21:00 Furosemide (Lasix) 20 mg BID DIURETICS PO Last administered on 05/17/18 05:26; Admin Dose 20 MG; Start 05/15/18 at 18:00 Spironolactone (Aldactone) 25 mg DAILY PO Last administered on 05/17/18 08:28; Admin Dose 25 MG; Start 05/16/18 at 13:30 Sildenafil Citrate (Revatio) 20 mg TID PO Last administered on 05/17/18 14:44; Admin Dose 20 MG; Start 05/17/18 at 13:00 Goarn Haley DO May 17, 2018 15:43
[2018-05-17] MEDS: ATORVASTATIN 20 MG TAB PO SCH (20:45)
== END 2018-05-17 21:50 | disposition home or self-care (01) | DRG 292 ==
LOC: E/R 08:21 → 6WM 14:10
PROVIDERS: ADMIT Internal Medicine; ATTEND Internal Medicine
DX: I11.0 Hypertensive heart disease with heart failure (principal); M33.20 Polymyositis, organ involvement unspecified; I50.33 Acute on chronic diastolic (congestive) heart failure; M10.9 Gout, unspecified; A80.9 Acute poliomyelitis, unspecified; E78.5 Hyperlipidemia, unspecified; E87.6 Hypokalemia; I27.20 Pulmonary hypertension, unspecified; I36.1 Nonrheumatic tricuspid (valve) insufficiency; R10.9 Unspecified abdominal pain
CPT/HCPCS: 36415; 71045; 71275; 74177; 78582; 80048; 80053; 80061; 80307; 81001; 82550; 82553; 83036; 83690; 83735; 83880; 84100; 84484; 84560; 85025; 86038; 86674; 86703; 86704; 86706; 86709; 86803; 87045; 87075; 87177; 87340; 93005; 93306; 93970; 96374; 96375; A9540; J1170; J1650; J1940; J2405; J3475; Q9967

== ENCOUNTER 2018-06-22 21:47 | Inpatient (IN) | payer OTHER ==
[~2018-06-22] VITALS: Ht 170.2 cm; Wt 76.7 kg
[~2018-06-22 21:47] MED LIST: ALLO100T PO; ASPI-817 PO; ATOR20TA38 PO; FURO20TA3 PO; NITR0.4T32 SL; OMEP40CA6 PO; SILD20TA13 PO; SPIR25TA PO
--- NOTE | 2018-06-22 22:14 | ERD ---
ER Documentation Chief Complaint Chief Complaint constant mid sternal chest pain x3days sharp, non-provoked non-radiating HPI 57-year-old male presenting with chest pain for the past 3 days that he describes as aching, pressure-like, nonradiating, with associated shortness of breath. The pain is intermittent, worse with exertion. He does have a history of CHF and pulmonary hypertension but has never had a heart cath done. He was admitted about 1 month ago for CHF exacerbation. He denies any fevers or chills. No cough or hemoptysis. ROS All systems reviewed and are negative except as per history of present illness. Medications Home Meds Active Scripts Nitroglycerin* (Nitroglycerin* SL) 0.4 Mg Tab.subl, 0.4 MG SL Q5MIN PRN for CHEST PAIN, #1 BOTTLE Prov:SHAYY PERRY AUDIO VISUAL ENGINEER 05/17/18 Spironolactone* (Aldactone*) 25 Mg Tablet, 25 MG PO DAILY, #30 TAB Prov:SHAYY PERRY AUDIO VISUAL ENGINEER 05/17/18 Sildenafil Citrate* (Revatio*) 20 Mg Tab, 20 MG PO TID, #90 TAB Prov:SHAYY PERRY AUDIO VISUAL ENGINEER 05/17/18 Reported Medications Allopurinol* (Allopurinol*) 100 Mg Tablet, 100 MG PO DAILY, TAB 05/15/18 Aspirin* (Aspirin* EC) 81 Mg Tablet.dr, 81 MG PO DAILY, TAB 05/15/18 Furosemide* (Furosemide*) 20 Mg Tablet, 20 MG PO BID, #30 TAB 05/15/18 Atorvastatin Calcium* (Atorvastatin Calcium*) 20 Mg Tablet, 20 MG PO QHS, #30 TAB 05/15/18 Omeprazole* (Omeprazole*) 40 Mg Capsule.dr, 40 MG PO DAILY, #30 CAP 05/15/18 Allergies Allergies: Coded Allergies: No Known Allergy (Unverified , 05/15/18) PMhx/Soc History of Surgery: No Anesthesia Reaction: No Hx Neurological Disorder: No Hx Respiratory Disorders: Yes (Severe pulmonary hypertension) Hx Cardiac Disorders: Yes (Combined CHF EF 50%) Hx Psychiatric Problems: No Hx Miscellaneous Medical Probl: Yes (DVT left lower extremity, polio) Hx Alcohol Use: No (History of alcoholism, quit 7 years ago) Hx Substance Use: No Hx Tobacco Use: No FmHx Family History: No diabetes Physical Exam Vitals Vital Signs Date Temp Pulse Resp B/P (MAP) Pulse Ox O2 O2 Flow FiO2 Time Delivery Rate 06/22/18 97.1 80 23 116/98 94 Room Air 23:15 (104) 06/22/18 97.1 70 19 148/99 95 Room Air 22:45 (115) 06/22/18 97.1 83 22 154/96 89 21:56 (115) Physical Exam Const: No acute distress. Speaking in full sentences Head: Atraumatic Eyes: Normal conjunctiva ENT: Dry mucous membranes. Normal External Ears, Nose and Mouth. Neck: Full range of motion. No meningismus. Increased JVP Resp: Clear to auscultation bilaterally Cardio: Regular rate and rhythm, no murmurs. 2+ distal pulses Abd: Soft, non tender, non distended. Normal bowel sounds Skin: No petechiae or rashes Back: No midline or flank tenderness Ext: Right lower extremity muscle atrophy which is chronic due to polio. Left lower extremity with mild swelling, nonpitting edema. Neur: Awake and alert Psych: Normal Mood and Affect Result Diagram: 06/22/18222506/22/182225 Results 24 hrs Laboratory Tests Test 06/22/18 22:26 White Blood Count 5.8 10^3/ul Red Blood Count 4.85 10^6/ul Hemoglobin 12.2 g/dl Hematocrit 40.1 % Mean Corpuscular Volume 82.7 fl Mean Corpuscular Hemoglobin 25.2 pg Mean Corpuscular Hemoglobin Concent 30.4 g/dl Red Cell Distribution Width 15.7 % Platelet Count 253 10^3/UL Mean Platelet Volume 10.5 fl Immature Granulocytes % 0.200 % Neutrophils % 63.5 % Lymphocytes % 23.5 % Monocytes % 9.3 % Eosinophils % 2.8 % Basophils % 0.7 % Nucleated Red Blood Cells % 0.0 /100WBC Immature Granulocytes # 0.010 10^3/ul Neutrophils # 3.7 10^3/ul Lymphocytes # 1.4 10^3/ul Monocytes # 0.5 10^3/ul Eosinophils # 0.2 10^3/ul Basophils # 0.0 10^3/ul Nucleated Red Blood Cells # 0.0 10^3/ul Sodium Level 141 mmol/L Potassium Level 4.1 mmol/L Chloride Level 111 mmol/L Carbon Dioxide Level 20 mmol/L Anion Gap 10 Blood Urea Nitrogen 30 mg/dl Creatinine 1.01 mg/dl Est Glomerular Filtrat Rate mL/min > 60 mL/min Glucose Level 66 mg/dl Calcium Level 9.8 mg/dl Troponin I 0.098 ng/ml Current Medications Medications Dose Sig/Carmen Start Time Status Last (Trade) Ordered Route PRN Stop Time Admin Dose Reason Admin Ondansetron 4 mg ER BRIDGE 06/22/18 HCl (Zofran PRN IV 23:30 Inj) NAUSEA/VOMITI 06/23/18 23:29 NG 650 mg ER BRIDGE 06/22/18 Acetaminophen PRN PO 23:30 (Tylenol .MILD PAIN 06/23/18 23:29 Tab) 1-3 OR TEMP Aspirin 162 mg ONCE ONCE 06/23/18 DC (Aspirin) PO 00:00 06/23/18 00:01 IV Flush 3 ml PER 06/23/18 UNV (NS 3 ml) PROTOCOL IV 00:00 Ondansetron 4 mg Q6H PRN 06/23/18 UNV HCl (Zofran IV 00:00 Inj) NAUSEA/VOMITI NG 1 tab Q5M PRN 06/23/18 UNV Nitroglycerin SL .CHEST 00:00 PAIN (Nitroglyceri n (Sl Tab) 0.4 Mg) 650 mg Q6H PRN 06/23/18 UNV Acetaminophen PO .PAIN 1-3 00:00 (Tylenol OR TEMP Tab) Heparin 5,000 unit Q12 SC 06/23/18 UNV Sodium 09:00 (Porcine) (Heparin (5000 Units/1ml)) Albuterol/ 3 ml Q2H RESP 06/23/18 UNV Ipratropium THERAPY PRN 00:00 (Duoneb) HHN SHORTNESS OF BREATH Allopurinol 100 mg DAILY PO 06/23/18 UNV (Zyloprim) 09:00 Aspirin 81 mg DAILY PO 06/23/18 UNV (Halfprin) 09:00 20 mg QHS PO 06/23/18 UNV Atorvastatin 21:00 Calcium (Lipitor) Furosemide 20 mg BID PO 06/23/18 UNV (Lasix) 09:00 0.4 tab Q5M PRN 06/23/18 UNV Nitroglycerin SL CHEST 00:00 PAIN (Nitroglyceri n (Sl Tab) 0.4 Mg) Sildenafil 20 mg TID PO 06/23/18 UNV Citrate 09:00 (Revatio) 25 mg DAILY PO 06/23/18 UNV Spironolacton 09:00 e (Aldactone) 40 mg DAILY PO 06/23/18 UNV Miscellaneous 09:00 Information Procedures/MDM EMERGENT LABS AND DIAGNOSTIC STUDIES: Lab Results above were reviewed and interpreted by me. CBC: no significant anemia or evidence of infection BMP: Increased BUN, creatinine normal. Borderline hypoglycemia. No evidence of clinically significant electrolyte abnormality, acidosis, renal failure Troponin within normal limits, not indicative of cardiac ischemia BNP: [] 12-lead EKG #1 was interpreted by Nicanor Pardo MD: Sinus rhythm with sinus arrhythmia Right bundle branch block Diffuse T wave inversions with inferior lateral ST depressions. No ST elevatio ns. Abnormal EKG, no STEMI 12-lead EKG #2 was interpreted by Nicanor Pardo MD: Sinus rhythm with sinus arrhythmia Right bundle branch block Diffuse T wave inversions with inferior lateral ST depressions. No ST elevations. Abnormal EKG, no STEMI Chest X-ray 1V Interpreted by me: Soft Tissue: No acute abnormalities Bones: No acute abnormalities Mediastinum/Cardiac Silhouette/Lungs: Cardiomegaly with prominent pulmonary vasculature. No evidence of pulmonary or interstitial edema Initial Nursing notes reviewed. Previous Medical Records requested via the Electronic Health Record. EMERGENCY DEPARTMENT COURSE / MEDICAL DECISION MAKING: Patient is presenting with worsening chest pain and shortness of breath. He does not have signs of acute CHF on exam. Vitals were notable for mild hypoxia on room air. He recently had a CTPA and DVT ultrasound done 1 month ago which were negative. He does have a history of severe pulmonary hypertension and has never had heart catheterization after his diagnosis of CHF and pulmonary hypertension. Given his worsening symptoms, I am concerned about possible ACS. Patient will require admission for further work-up and is not stable for discharge at this time. Accepting Care Team: Current data and ongoing care discussed. Time: Time of admission Primary Provider: Dr. Bailey Departure Diagnosis: Primary Impression: Chest pain Chest pain type: precordial pain Qualified Codes: R07.2 - Precordial pain Additional Impression: Dyspnea Dyspnea type: unspecified Qualified Codes: R06.00 - Dyspnea, unspecified Condition: Fair ROSALEE PARDO MD June 22, 2018 22:14
[2018-06-22] MEDS ORDERED: ACETAMINOPHEN 325 MG TAB PO PRN (23:30)
[2018-06-22] MEDS ORDERED: ONDANSETRON 4 MG INJ IV PRN (23:30)
--- NOTE | 2018-06-22 23:49 | HP ---
Date/Time of Note Date/Time of Note DATE: 06/22/18 TIME: 23:49 Assessment/Plan VTE Prophylaxis Pharmacological prophylaxis: heparin Lines/Catheters IV Catheter Type (from Nrs): Saline Lock Assessment/Plan Assessment/Plan 57-year-old male with a history of diastolic CHF, dyslipidemia, gout, severe pulmonary hypertension (120 mmHg) admitted for chest pain and shortness of breath 1. Chest pain: Rule out ACS -Continue telemetry monitoring -Serial troponin -Supplemental oxygen, aspirin, statin. Will add BB. As needed nitro. -Recent echo a month ago showed EF of 50%, stage I diastolic dysfunction and severe pulmonary hypertension with PA pressure of 120 mmHg -Continue sildenafil, Aldactone -Cardiology consult. I believe patient benefits from cardiac cath during this admission. 2. Severe pulmonary hypertension -Patient stopped the sildenafil 3 days ago because of dizziness -Pulmonary consult to adjust meds if possible 3. History of diastolic CHF: Continue home meds 4. Dyslipidemia: Continue statin 5. Gout: Continue allopurinol Result Diagram: 06/22/186 06/22/18 2226 Results 24hrs Laboratory Tests Test 06/22/18 22:26 White Blood Count 5.8 Red Blood Count 4.85 # Hemoglobin 12.2 #L Hematocrit 40.1 #L Mean Corpuscular Volume 82.7 Mean Corpuscular Hemoglobin 25.2 L Mean Corpuscular Hemoglobin Concent 30.4 L Red Cell Distribution Width 15.7 H Platelet Count 253 Mean Platelet Volume 10.5 H Immature Granulocytes % 0.200 Neutrophils % 63.5 Lymphocytes % 23.5 Monocytes % 9.3 Eosinophils % 2.8 Basophils % 0.7 Nucleated Red Blood Cells % 0.0 Immature Granulocytes # 0.010 Neutrophils # 3.7 Lymphocytes # 1.4 Monocytes # 0.5 Eosinophils # 0.2 Basophils # 0.0 Nucleated Red Blood Cells # 0.0 Sodium Level 141 Potassium Level 4.1 Chloride Level 111 H Carbon Dioxide Level 20 L Anion Gap 10 Blood Urea Nitrogen 30 H Creatinine 1.01 Est Glomerular Filtrat Rate mL/min > 60 Glucose Level 66 L Calcium Level 9.8 Troponin I 0.098 HPI/ROS Admit Date/Time Admit Date/Time Hx of Present Illness Patient is a 57-year-old male with a history of diastolic CHF, dyslipidemia, gout, severe pulmonary hypertension (120 mmHg). Patient presented to ER complaining of progressively worsening chest pain for the past several days. Symptoms somehow worse on exertion. Patient was started on sildenafil for pulmonary hypertension. He said he stopped taking it 3 days ago because of dizziness. He said the chest pain started after he stopped sildenafil. Patient was admitted here a month ago and at that time was ruled out for ACS. 2D echo showed EF of 50% with stage I diastolic dysfunction and severe pulmonary hypertension with a PA pressure 120 mmHg. When presented to the ER today, blood pressure was 154/96, was hypoxic with oxygen saturation of 89%. BNP 4550. First troponin negative and EKG without ST elevation or depression CXR 1. Cardiomegaly is without significant change, given differences in plane film technique. 2. Dilation of bilateral pulmonary arteries is similar in appearance to the prior examination, compatible with pulmonary venous hypertension. 3. There are no evident calcifications in the pulmonary trunk or bilateral main pulmonary arteries. PMH/Family/Social Past Medical History Past Surgical Hx: other (see hpi) Family History Significant Family History: no pertinent family hx Social History Alcohol Use: none Smoking Status: Never smoker Drug Use: none Exam Exam Constitutional: other (No acute distress) Head: normocephalic, atraumatic Eyes: EOMI, PERRL Respiratory: other (no wheezing or Rhonchi) Cardiovascular: normal pulse Gastrointestinal: soft, non-tender Extremities: normal pulses Medications Current Medications Ondansetron HCl (Zofran Inj) 4 mg ER BRIDGE PRN IV NAUSEA/VOMITING; Start 06/22/18 at 23:30; Stop 06/23/18 at 23:29 Acetaminophen (Tylenol Tab) 650 mg ER BRIDGE PRN PO .MILD PAIN 1-3 OR TEMP; Start 06/22/18 at 23:30; Stop 06/23/18 at 23:29 Aspirin (Aspirin) 162 mg ONCE ONCE PO ; Start 06/23/18 at 00:00; Stop 06/23/18 at 00:01 Coded Allergies: No Known Allergy (Unverified , 05/15/18) Past Surgical History Past Surgical Hx: no surgical history Social History Smoking Status: Former smoker Exam/Review of Systems Vital Signs Vitals Vital Signs Date Temp Pulse Resp B/P (MAP) Pulse Ox O2 O2 Flow FiO2 Time Delivery Rate 06/22/18 97.1 80 23 116/98 94 Room Air 23:15 (104) KEATON HENAO MD June 22, 2018 23:49
[2018-06-23] VITALS (11 sets, daily range): BP systolic 115–168; BP diastolic 70–105; PULSE 50–84; RESP 16–18; Ht 170.2 cm; Wt 76.7 kg
[2018-06-23] MEDS ORDERED: ONDANSETRON 4 MG INJ IV PRN
[2018-06-23] MEDS ORDERED: NITROGLYCERIN (SL) 0.4 MG TAB SL PRN ×2
[2018-06-23] MEDS ORDERED: ACETAMINOPHEN 325 MG TAB PO PRN
[2018-06-23] MEDS ORDERED: ALBUTEROL/IPRATROPIUM (NEB) 3 ML AMP HHN PRN
[2018-06-23] MEDS ORDERED: NACL 0.9% 3 ML SYG IV SCH
[2018-06-23] MEDS ORDERED: ASPIRIN 81 MG TAB PO ONE
[2018-06-23] MEDS: PANTOPRAZOLE (EC) 40 MG TAB PO SCH (06:08)
[2018-06-23] MEDS: SPIRONOLACTONE 25 MG TAB PO SCH (08:23)
[2018-06-23] MEDS: ALLOPURINOL 100 MG TAB PO SCH (08:23)
[2018-06-23] MEDS: ASPIRIN (EC) 81 MG TAB PO SCH (08:23)
[2018-06-23] MEDS: HEPARIN 5,000 UNIT/1 ML VIAL SC SCH ×2 (08:25→20:24)
[2018-06-23] MEDS: FUROSEMIDE 20 MG TAB PO SCH ×2 (08:30→20:13)
[2018-06-23] MEDS ORDERED: METOPROLOL 25 MG TAB PO SCH (09:00)
[2018-06-23] MEDS ORDERED: NON-FORMULARY/PATIENT OWN MED (Omeprazole* 40 MG) PO SCH (09:00)
[2018-06-23] MEDS: SILDENAFIL 20 MG TAB PO SCH ×3 (11:48→20:12)
--- NOTE | 2018-06-23 15:55 | CONS ---
Assessment/Plan Assessment/Plan Hospital Course (Demo Recall) Chest pain: Appears to be non-anginal troponin have been negative Severe pulmonary hypertension Lower extremity edema Arrhythmias with episodes of junctional rhythm but no syncope Abnormal EKG Recommendation: Continue with revatio low dose diuretics LE U/S R/O DVT We will repeat echocardiogram Thank you for this referral. We will continue to follow along with you WHITNEY MAY MD [facility] Consultation Date/Type/Reason Admit Date/Time Date of Consultation: June 23, 2018 Type of Consult Cardiology Reason for Consultation chest pain Requesting Provider: GABY SALAZAR Date/Time of Note DATE: 06/23/18 TIME: 15:49 Hx of Present Illness Interventional cardiology consultation note Chief complaint: Epigastric/substernal chest pain Reason for consult: Chest pain History of present illness: Thank you for this referral. History was obtained from the patient who is a very poor historian is that he has no medical problem. From discussion with physician and the staff and review of the old chart This is a very pleasant 57-year-old gentleman with history of severe pulmonary hypertension, postpolio, who came to emergency room with complaints of almost 4 days of constant epigastric/substernal chest pain which is sharp not related to exertion or stress or anxiety or eating. Patient pain has improved now. Troponin have been negative Allergies: No known drug allergies Medications were reviewed as per medical reconciliation sheet Family history: No early coronary artery disease Social history: Does not smoke or drink now Past medical history: History of severe pulmonary hypertension last month PA pressure was 120 . Post polio " Congestive heart failure" Review of system: Patient denies all others except for above-mentioned Past Medical History Home Meds Active Scripts Nitroglycerin* (Nitroglycerin* SL) 0.4 Mg Tab.subl, 0.4 MG SL Q5MIN PRN for CHEST PAIN, #1 BOTTLE Prov:SHAYY PERRY REFRIGERATOR REPAIRMAN 05/17/18 Spironolactone* (Aldactone*) 25 Mg Tablet, 25 MG PO DAILY, #30 TAB Prov:SHAYY PERRY REFRIGERATOR REPAIRMAN 05/17/18 Sildenafil Citrate* (Revatio*) 20 Mg Tab, 20 MG PO TID, #90 TAB Prov:SHAYY PERRY REFRIGERATOR REPAIRMAN 05/17/18 Reported Medications Allopurinol* (Allopurinol*) 100 Mg Tablet, 100 MG PO DAILY, TAB 05/15/18 Aspirin* (Aspirin* EC) 81 Mg Tablet.dr, 81 MG PO DAILY, TAB 05/15/18 Furosemide* (Furosemide*) 20 Mg Tablet, 20 MG PO BID, #30 TAB 05/15/18 Atorvastatin Calcium* (Atorvastatin Calcium*) 20 Mg Tablet, 20 MG PO QHS, #30 TAB 05/15/18 Omeprazole* (Omeprazole*) 40 Mg Capsule.dr, 40 MG PO DAILY, #30 CAP 05/15/18 Medications Current Medications IV Flush (NS 3 ml) 3 ml PER PROTOCOL IV ; Start 06/23/18 at 00:00 Ondansetron HCl (Zofran Inj) 4 mg Q6H PRN IV NAUSEA/VOMITING; Start 06/23/18 at 00:00 Nitroglycerin (Nitroglycerin (Sl Tab) 0.4 Mg) 1 tab Q5M PRN SL .CHEST PAIN Last administered on 06/23/18at 02:50; Admin Dose 1 TAB; Start 06/23/18 at 00:00 Acetaminophen (Tylenol Tab) 650 mg Q6H PRN PO .PAIN 1-3 OR TEMP; Start 06/23/18 at 00:00 Heparin Sodium (Porcine) (Heparin (5000 Units/1ml)) 5,000 unit Q12 SC Last administered on 06/23/18at 08:25; Admin Dose 5,000 UNIT; Start 06/23/18 at 09:00 Albuterol/ Ipratropium (Duoneb) 3 ml Q2H RESP THERAPY PRN HHN SHORTNESS OF BREATH; Start 06/23/18 at 00:00 Allopurinol (Zyloprim) 100 mg DAILY PO Last administered on 06/23/18at 08:23; Admin Dose 100 MG; Start 06/23/18 at 09:00 Aspirin (Halfprin) 81 mg DAILY PO Last administered on 06/23/18at 08:23; Admin Dose 81 MG; Start 06/23/18 at 09:00 Atorvastatin Calcium (Lipitor) 20 mg QHS PO ; Start 06/23/18 at 21:00 Furosemide (Lasix) 20 mg BID PO Last administered on 06/23/18at 08:30; Admin Dose 20 MG; Start 06/23/18 at 09:00 Sildenafil Citrate (Revatio) 20 mg TID PO Last administered on 06/23/18at 11:48; Admin Dose 20 MG; Start 06/23/18 at 09:00 Spironolactone (Aldactone) 25 mg DAILY PO Last administered on 06/23/18at 08:23; Admin Dose 25 MG; Start 06/23/18 at 09:00 Pantoprazole (Protonix Tab) 40 mg DAILY@06 PO Last administered on 06/23/18at 06:08; Admin Dose 40 MG; Start 06/23/18 at 06:00 Metoprolol Tartrate (Lopressor) 12.5 mg BID PO Last administered on 06/23/18at 08:23; Admin Dose 12.5 MG; Start 06/23/18 at 09:00 Allergies: Coded Allergies: No Known Allergy (Unverified , 05/15/18) Past Surgical History Past Surgical Hx: no surgical history Social History Smoking Status: Never smoker Exam/Review of Systems Vital Signs Vitals Vital Signs Date Temp Pulse Resp B/P (MAP) Pulse Ox O2 O2 Flow FiO2 Time Delivery Rate 06/23/18 97.7 50 16 128/70 92 15:25 (89) 06/23/18 Room Air 01:31 Intake and Output 06/22/18 06/22/18 06/23/18 1515:00 23:00 07:00 IntakeIntake Total 250 ml OutputOutput Total 300 ml BalanceBalance -50 ml Exam Exam General: no acute distress HEENT: NC/AT. + Strabismus NECK: . no stridor. CV: RRR. systolic murmur; no gallop or rubs. PULM: no wheezing or rhonchi. GI: SOFT, NT, ND, no rebound or guarding Extremity: There is more edema of the left lower extremity compared to the right. 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 Psych: calm and pleasant rectal: deferred EKG June 22, 2018 showed junctional rhythm. Right bundle branch block specific ST-T wave abnormalities Echocardiogram done May [address] Roberts shows Lower limits of normal systolic function. Normal left ventricular cavity size. Mild concentric left ventricular hypertrophy. Ejection fraction is visually estimated at 50 %. Tissue Doppler/Mitral Doppler indices are consistent with impaired relaxation (Stage I diastolic dysfunction). Multiple segmental wall motion abnormalities. Moderate-severe right ventricular systolic dysfunction. Severe enlargement of right ventricle. There is moderate enlargement of left atrium. There is severe enlargement of right atrium. Right ventricular systolic pressure is consistent with severe pulmonary hypertension. Estimated peak PA systolic pressure 120 mmHg. There is severe tricuspid regurgitation. Mild mitral valve regurgitation. No significant aortic stenosis or insufficiency. Trivial pericardial effusion. Review of the old chart showed that CT pulmonary angiogram done 05/17/2018 shows: IMPRESSION: 1. No evidence of a pulmonary embolism. 2. Enlarged pulmonary arteries consistent with pulmonary hypertension. 3. Cardiomegaly. Dense intravenous contrast in the intrahepatic inferior vena cava and hepatic veins which may reflect right-sided heart failure. 4. Anasarca. 5. Resolved bilateral lower lobe nodular opacities likely infectious or inflammatory in etiology. Labs Result Diagram: 06/23/18 0607 06/23/18 0607 Results 24hrs Laboratory Tests Test 06/22/18 22:26 06/23/18 06:06 06/23/18 06:07 06/23/18 10:53 White Blood Count 5.8 4.6 #L Red Blood Count 4.85 # 4.42 L Hemoglobin 12.2 #L 11.2 L Hematocrit 40.1 #L 36.3 L Mean Corpuscular 82.7 82.1 Volume Mean Corpuscular 25.2 L 25.3 L Hemoglobin Mean Corpuscular 30.4 L 30.9 L Hemoglobin Concent Red Cell 15.7 H 15.3 H Distribution Width Platelet Count 253 221 Mean Platelet Volume 10.5 H 10.8 H Immature 0.200 0.200 Granulocytes % Neutrophils % 63.5 64.2 Lymphocytes % 23.5 24.7 Monocytes % 9.3 7.8 Eosinophils % 2.8 2.4 Basophils % 0.7 0.7 Nucleated Red Blood 0.0 0.0 Cells % Immature 0.010 0.010 Granulocytes # Neutrophils # 3.7 3.0 Lymphocytes # 1.4 1.1 Monocytes # 0.5 0.4 Eosinophils # 0.2 0.1 Basophils # 0.0 0.0 Nucleated Red Blood 0.0 0.0 Cells # Sodium Level 141 143 Potassium Level 4.1 4.7 Chloride Level 111 H 115 H Carbon Dioxide Level 20 L 18 L Anion Gap 10 10 Blood Urea Nitrogen 30 H 29 H Creatinine 1.01 0.87 Est Glomerular > 60 > 60 Filtrat Rate mL/min Glucose Level 66 L 79 Calcium Level 9.8 9.7 Troponin I 0.098 0.082 0.066 B-Type Natriuretic 4550 H Peptide Creatine Kinase 31 74 Creatine Kinase 5.1 2.1 Index Creatinine Kinase MB 1.58 1.58 (Mass) Magnesium Level 2.0 Total Bilirubin 0.5 Direct Bilirubin 0.00 Indirect Bilirubin 0.5 Aspartate Amino 18 Transf (AST/SGOT) Alanine 18 Aminotransferase (AL T/SGPT) Alkaline Phosphatase 94 Total Protein 5.9 L Albumin 3.2 L Globulin 2.70 Albumin/Globulin 1.18 Ratio Medications Medications Current Medications IV Flush (NS 3 ml) 3 ml PER PROTOCOL IV ; Start 06/23/18 at 00:00 Ondansetron HCl (Zofran Inj) 4 mg Q6H PRN IV NAUSEA/VOMITING; Start 06/23/18 at 00:00 Nitroglycerin (Nitroglycerin (Sl Tab) 0.4 Mg) 1 tab Q5M PRN SL .CHEST PAIN Last administered on 06/23/18at 02:50; Admin Dose 1 TAB; Start 06/23/18 at 00:00 Acetaminophen (Tylenol Tab) 650 mg Q6H PRN PO .PAIN 1-3 OR TEMP; Start 06/23/18 at 00:00 Heparin Sodium (Porcine) (Heparin (5000 Units/1ml)) 5,000 unit Q12 SC Last administered on 06/23/18at 08:25; Admin Dose 5,000 UNIT; Start 06/23/18 at 09:00 Albuterol/ Ipratropium (Duoneb) 3 ml Q2H RESP THERAPY PRN HHN SHORTNESS OF BREATH; Start 06/23/18 at 00:00 Allopurinol (Zyloprim) 100 mg DAILY PO Last administered on 06/23/18at 08:23; Admin Dose 100 MG; Start 06/23/18 at 09:00 Aspirin (Halfprin) 81 mg DAILY PO Last administered on 06/23/18at 08:23; Admin Dose 81 MG; Start 06/23/18 at 09:00 Atorvastatin Calcium (Lipitor) 20 mg QHS PO ; Start 06/23/18 at 21:00 Furosemide (Lasix) 20 mg BID PO Last administered on 06/23/18at 08:30; Admin Dose 20 MG; Start 06/23/18 at 09:00 Sildenafil Citrate (Revatio) 20 mg TID PO Last administered on 06/23/18 11:48; Admin Dose 20 MG; Start 06/23/18 at 09:00 Spironolactone (Aldactone) 25 mg DAILY PO Last administered on 06/23/18 08:23; Admin Dose 25 MG; Start 06/23/18 at 09:00 Pantoprazole (Protonix Tab) 40 mg DAILY@06 PO Last administered on 06/23/18 06:08; Admin Dose 40 MG; Start 06/23/18 at 06:00 Metoprolol Tartrate (Lopressor) 12.5 mg BID PO Last administered on 06/23/18 08:23; Admin Dose 12.5 MG; Start 06/23/18 at 09:00 WHINTEY MAY MD June 23, 2018 15:55
--- NOTE | 2018-06-23 17:59 | PN ---
Date/Time of Note Date/Time of Note DATE: 06/23/18 TIME: 17:55 Assessment/Plan VTE Prophylaxis Risk score (from Nsg)>0 risk: 1 Pharmacological prophylaxis: heparin Lines/Catheters IV Catheter Type (from Nrsg): Saline Lock Assessment/Plan Hospital Course 57-year-old male with a history of diastolic CHF, dyslipidemia, gout, severe pulmonary hypertension (120 mmHg) admitted for chest pain and shortness of breath 1. Chest pain -Troponins are negative and pain is non-anginal -Cardiology consultation appreciated, follow-up on repeat echo -Continue telemetry monitoring -Supplemental oxygen, aspirin, statin. Will add BB. As needed nitro. -Recent echo a month ago showed EF of 50%, stage I diastolic dysfunction and severe pulmonary hypertension with PA pressure of 120 mmHg -Patient had not been taking his sildenafil for the last 3 days, chest pain began once he got off the medication, resume sildenafil but twice daily dosing as patient did not tolerate TID dosing 2. Severe pulmonary hypertension -Patient stopped the sildenafil 3 days ago because of dizziness, resume at twice daily dosing -Patient does follow-up with a dental scheduling coordinator and vehicle painter 3. History of diastolic CHF: Continue home meds 4. Dyslipidemia: Continue statin 5. Gout: Continue allopurinol Prophylaxis: Heparin DC planning: Anticipate DC home tomorrow Result Diagram: 06/23/1860606/23/18606 Results 24hrs Laboratory Tests Test 06/22/18 22:26 06/23/18 06:06 06/23/18 06:07 06/23/18 10:53 White Blood Count 5.8 4.6 #L Red Blood Count 4.85 # 4.42 L Hemoglobin 12.2 #L 11.2 L Hematocrit 40.1 #L 36.3 L Mean Corpuscular 82.7 82.1 Volume Mean Corpuscular 25.2 L 25.3 L Hemoglobin Mean Corpuscular 30.4 L 30.9 L Hemoglobin Concent Red Cell 15.7 H 15.3 H Distribution Width Platelet Count 253 221 Mean Platelet Volume 10.5 H 10.8 H Immature 0.200 0.200 Granulocytes % Neutrophils % 63.5 64.2 Lymphocytes % 23.5 24.7 Monocytes % 9.3 7.8 Eosinophils % 2.8 2.4 Basophils % 0.7 0.7 Nucleated Red Blood 0.0 0.0 Cells % Immature 0.010 0.010 Granulocytes # Neutrophils # 3.7 3.0 Lymphocytes # 1.4 1.1 Monocytes # 0.5 0.4 Eosinophils # 0.2 0.1 Basophils # 0.0 0.0 Nucleated Red Blood 0.0 0.0 Cells # Sodium Level 141 143 Potassium Level 4.1 4.7 Chloride Level 111 H 115 H Carbon Dioxide Level 20 L 18 L Anion Gap 10 10 Blood Urea Nitrogen 30 H 29 H Creatinine 1.01 0.87 Est Glomerular > 60 > 60 Filtrat Rate mL/min Glucose Level 66 L 79 Calcium Level 9.8 9.7 Troponin I 0.098 0.082 0.066 B-Type Natriuretic 4550 H Peptide Creatine Kinase 31 74 Creatine Kinase 5.1 2.1 Index Creatinine Kinase MB 1.58 1.58 (Mass) Magnesium Level 2.0 Total Bilirubin 0.5 Direct Bilirubin 0.00 Indirect Bilirubin 0.5 Aspartate Amino 18 Transf (AST/SGOT) Alanine 18 Aminotransferase (AL T/SGPT) Alkaline Phosphatase 94 Total Protein 5.9 L Albumin 3.2 L Globulin 2.70 Albumin/Globulin 1.18 Ratio Subjective 24 Hr Interval Summary Constitutional: no complaints Exam/Review of Systems Exam Vitals Vital Signs Date Temp Pulse Resp B/P (MAP) Pulse Ox O2 O2 Flow FiO2 Time Delivery Rate 06/23/18 50 16:45 06/23/18 97.7 16 128/70 92 15:25 (89) 06/23/18 Room Air 01:31 Intake and Output 06/22/18 06/22/18 06/23/18 1515:00 23:00 07:00 IntakeIntake Total 250 ml OutputOutput Total 300 ml BalanceBalance -50 ml Constitutional: alert, oriented Respiratory: clear to auscultation Cardiovascular: regular rate and rhythm Gastrointestinal: soft; No distended Musculoskeletal: nl extremities to inspection Results Results 24hrs Laboratory Tests Test 06/22/18 22:26 06/23/18 06:06 06/23/18 06:07 06/23/18 10:53 White Blood Count 5.8 4.6 #L Red Blood Count 4.85 # 4.42 L Hemoglobin 12.2 #L 11.2 L Hematocrit 40.1 #L 36.3 L Mean Corpuscular 82.7 82.1 Volume Mean Corpuscular 25.2 L 25.3 L Hemoglobin Mean Corpuscular 30.4 L 30.9 L Hemoglobin Concent Red Cell 15.7 H 15.3 H Distribution Width Platelet Count 253 221 Mean Platelet Volume 10.5 H 10.8 H Immature 0.200 0.200 Granulocytes % Neutrophils % 63.5 64.2 Lymphocytes % 23.5 24.7 Monocytes % 9.3 7.8 Eosinophils % 2.8 2.4 Basophils % 0.7 0.7 Nucleated Red Blood 0.0 0.0 Cells % Immature 0.010 0.010 Granulocytes # Neutrophils # 3.7 3.0 Lymphocytes # 1.4 1.1 Monocytes # 0.5 0.4 Eosinophils # 0.2 0.1 Basophils # 0.0 0.0 Nucleated Red Blood 0.0 0.0 Cells # Sodium Level 141 143 Potassium Level 4.1 4.7 Chloride Level 111 H 115 H Carbon Dioxide Level 20 L 18 L Anion Gap 10 10 Blood Urea Nitrogen 30 H 29 H Creatinine 1.01 0.87 Est Glomerular > 60 > 60 Filtrat Rate mL/min Glucose Level 66 L 79 Calcium Level 9.8 9.7 Troponin I 0.098 0.082 0.066 B-Type Natriuretic 4550 H Peptide Creatine Kinase 31 74 Creatine Kinase 5.1 2.1 Index Creatinine Kinase MB 1.58 1.58 (Mass) Magnesium Level 2.0 Total Bilirubin 0.5 Direct Bilirubin 0.00 Indirect Bilirubin 0.5 Aspartate Amino 18 Transf (AST/SGOT) Alanine 18 Aminotransferase (AL T/SGPT) Alkaline Phosphatase 94 Total Protein 5.9 L Albumin 3.2 L Globulin 2.70 Albumin/Globulin 1.18 Ratio Medications Medication Current Medications IV Flush (NS 3 ml) 3 ml PER PROTOCOL IV ; Start 06/23/18 at 00:00 Ondansetron HCl (Zofran Inj) 4 mg Q6H PRN IV NAUSEA/VOMITING; Start 06/23/18 at 00:00 Nitroglycerin (Nitroglycerin (Sl Tab) 0.4 Mg) 1 tab Q5M PRN SL .CHEST PAIN Last administered on 06/23/18at 02:50; Admin Dose 1 TAB; Start 06/23/18 at 00:00 Acetaminophen (Tylenol Tab) 650 mg Q6H PRN PO .PAIN 1-3 OR TEMP; Start 06/23/18 at 00:00 Heparin Sodium (Porcine) (Heparin (5000 Units/1ml)) 5,000 unit Q12 SC Last administered on 06/23/18 08:25; Admin Dose 5,000 UNIT; Start 06/23/18 at 09:00 Albuterol/ Ipratropium (Duoneb) 3 ml Q2H RESP THERAPY PRN HHN SHORTNESS OF BREATH; Start 06/23/18 at 00:00 Allopurinol (Zyloprim) 100 mg DAILY PO Last administered on 06/23/18 08:23; Admin Dose 100 MG; Start 06/23/18 at 09:00 Aspirin (Halfprin) 81 mg DAILY PO Last administered on 06/23/18 08:23; Admin Dose 81 MG; Start 06/23/18 at 09:00 Atorvastatin Calcium (Lipitor) 20 mg QHS PO ; Start 06/23/18 at 21:00 Furosemide (Lasix) 20 mg BID PO Last administered on 06/23/18 08:30; Admin Dose 20 MG; Start 06/23/18 at 09:00 Sildenafil Citrate (Revatio) 20 mg TID PO Last administered on 06/23/18 11:48; Admin Dose 20 MG; Start 06/23/18 at 09:00 Spironolactone (Aldactone) 25 mg DAILY PO Last administered on 06/23/18 08:23; Admin Dose 25 MG; Start 06/23/18 at 09:00 Pantoprazole (Protonix Tab) 40 mg DAILY@06 PO Last administered on 06/23/18 06:08; Admin Dose 40 MG; Start 06/23/18 at 06:00 GABY SALAZAR June 23, 2018 17:59
[2018-06-23] MEDS: ATORVASTATIN 20 MG TAB PO SCH (20:12)
[2018-06-24] VITALS (12 sets, daily range): BP systolic 120–163; BP diastolic 86–110; PULSE 53–92; RESP 16–18
[2018-06-24] MEDS: PANTOPRAZOLE (EC) 40 MG TAB PO SCH (05:40)
[2018-06-24] MEDS: ASPIRIN (EC) 81 MG TAB PO SCH (08:35)
[2018-06-24] MEDS: FUROSEMIDE 20 MG TAB PO SCH ×2 (08:35→20:18)
[2018-06-24] MEDS: ALLOPURINOL 100 MG TAB PO SCH (08:36)
[2018-06-24] MEDS: SPIRONOLACTONE 25 MG TAB PO SCH (08:36)
[2018-06-24] MEDS: HEPARIN 5,000 UNIT/1 ML VIAL SC SCH ×2 (08:38→20:55)
[2018-06-24] MEDS: SILDENAFIL 20 MG TAB PO SCH ×3 (08:40→20:18)
--- NOTE | 2018-06-24 12:21 | PDOCDIS ---
Discharge Instructions CONDITION [id number] Patient Condition: [id number] Good HOME CARE INSTRUCTIONS: [id number] Diet Instructions: [id number] Reduced Calorie ACTIVITY: [id number] Activity Restrictions: [id number] No Restrictions FOLLOW UP/APPOINTMENTS Follow-up Plan Follow-up with your centerless grinding machine adjuster and acid conditioning worker as scheduled GABY SALAZAR June 24, 2018 12:20
--- NOTE | 2018-06-24 12:25 | DS ---
Date/Time of Note Date/Time of Note DATE: 06/24/18 TIME: 12:21 Discharge Summary Admission/Discharge Info Admit Date/Time June 22, 2018 at 23:22 Discharge Date/Time June 24, 2018 Discharge Diagnosis 57-year-old male with a history of diastolic CHF, dyslipidemia, gout, severe pulmonary hypertension (120 mmHg) admitted for chest pain and shortness of breath 1. Chest pain likely secondary to pulmonary hypertension -Symptoms began after patient stopped taking his sildenafil -Troponins are negative and pain is non-anginal -Cardiology consultation appreciated -Follow-up with outpatient consulting networking engineer and concreter -Recommended to resume home sildenafil but at decreased frequency to twice daily, patient did not tolerate 3 times daily dosing -Recent echo a month ago showed EF of 50%, stage I diastolic dysfunction and severe pulmonary hypertension with PA pressure of 120 mmHg 2. Severe pulmonary hypertension -Patient stopped the sildenafil 3 days prior to admission because of dizziness, patient has been tolerating twice daily dosing, patient advised to continue twice daily dosing -Patient does follow-up with a concreter and consulting networking engineer as outpatient 3. History of diastolic CHF: Continue home meds 4. Dyslipidemia: Continue statin 5. Gout: Continue allopurinol Patient Condition: Good Hospital Course Patient is a 57-year-old male with a history of diastolic CHF, dyslipidemia, gout, severe pulmonary hypertension (120 mmHg) admitted for chest pain and shortness of breath. Patient symptoms began 3 days prior to admission when he stopped taking his home sildenafil. Patient was taking the medication 3 times a day and stopped secondary to dizziness. Patient does follow-up with a concreter for his pulmonary hypertension as well as a consulting networking engineer. Patient was told by his concreter that he will place him on an alternative medication for his pulmonary hypertension if he continues to be unable to tolerate sildenafil. Patient's troponins were negative and pain was noted to be non-anginal, patient was seen by cardiology. Patient did have a recent echo that showed an EF 50% with stage I diastolic dysfunction. Patient was placed back on sildenafil but at twice daily dosing which he did tolerate and was advised to continue this frequency, chest pain also resolved. Patient was stable for DC to follow-up with his outpatient consulting networking engineer and concreter, on the day of discharge patient's vitals, labs and physical exam are stable. Home Meds Active Scripts Nitroglycerin* (Nitroglycerin* SL) 0.4 Mg Tab.subl, 0.4 MG SL Q5MIN PRN for CHEST PAIN, #1 BOTTLE Prov:SHAYY PERRY MEAT BLENDER 05/17/18 Spironolactone* (Aldactone*) 25 Mg Tablet, 25 MG PO DAILY, #30 TAB Prov:SHAYY PERRY MEAT BLENDER 05/17/18 Sildenafil Citrate* (Revatio*) 20 Mg Tab, 20 MG PO TID, #90 TAB Prov:SHAYY PERRY MEAT BLENDER 05/17/18 Reported Medications Allopurinol* (Allopurinol*) 100 Mg Tablet, 100 MG PO DAILY, TAB 05/15/18 Aspirin* (Aspirin* EC) 81 Mg Tablet.dr, 81 MG PO DAILY, TAB 05/15/18 Furosemide* (Furosemide*) 20 Mg Tablet, 20 MG PO BID, #30 TAB 05/15/18 Atorvastatin Calcium* (Atorvastatin Calcium*) 20 Mg Tablet, 20 MG PO QHS, #30 TAB 05/15/18 Omeprazole* (Omeprazole*) 40 Mg Capsule.dr, 40 MG PO DAILY, #30 CAP 05/15/18 Follow-up Plan Follow-up with your concreter and consulting networking engineer as scheduled Primary Care Provider Not On Staff Doctor Time spent on discharge: > 30 minutes GABY SALAZAR June 24, 2018 12:25
--- NOTE | 2018-06-24 12:54 | CONS ---
Consult Date/Type/Reason Admit Date/Time June 22, 2018 at 23:22 Initial Consult Date 06/23/18 Type of Consultation: CV Requesting Provider: GABY SALAZAR Date/Time of Note DATE: 06/24/18 TIME: 12:52 Subjective Cardiology follow-up progress note Subjective: Discussed with the staff and telemetry was reviewed. Patient has repeated episodes of junctional rhythm. Heart rate has remained stable no pauses noted Patient complains of intermittent dizziness especially when he takes his REVATIO No bleeding no chest pain or pressure now Objective: General: no acute distress HEENT: NC/AT. + Strabismus NECK: . no stridor. CV: RRR. systolic murmur; no gallop or rubs. PULM: no wheezing or rhonchi. GI: SOFT, NT, ND, no rebound or guarding Extremity: There is more edema of the left lower extremity compared to the right. 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 Psych: calm and pleasant rectal: deferred EKG June 22, 2018 showed junctional rhythm. Right bundle branch block specific ST-T wave abnormalities Echocardiogram done May [address] Roberts shows Lower limits of normal systolic function. Normal left ventricular cavity size. Mild concentric left ventricular hypertrophy. Ejection fraction is visually estimated at 50 %. Tissue Doppler/Mitral Doppler indices are consistent with impaired relaxation (Stage I diastolic dysfunction). Multiple segmental wall motion abnormalities. Moderate-severe right ventricular systolic dysfunction. Severe enlargement of right ventricle. There is moderate enlargement of left atrium. There is severe enlargement of right atrium. Right ventricular systolic pressure is consistent with severe pulmonary hypertension. Estimated peak PA systolic pressure 120 mmHg. There is severe tricuspid regurgitation. Mild mitral valve regurgitation. No significant aortic stenosis or insufficiency. Trivial pericardial effusion. Review of the old chart showed that CT pulmonary angiogram done 05/17/2018 shows: IMPRESSION: 1. No evidence of a pulmonary embolism. 2. Enlarged pulmonary arteries consistent with pulmonary hypertension. 3. Cardiomegaly. Dense intravenous contrast in the intrahepatic inferior vena cava and hepatic veins which may reflect right-sided heart failure. 4. Anasarca. 5. Resolved bilateral lower lobe nodular opacities likely infectious or inflammatory in etiology. Objective Vitals Vital Signs Date Temp Pulse Resp B/P (MAP) Pulse Ox O2 O2 Flow FiO2 Time Delivery Rate 06/24/18 67 12:34 5/12/19 97.4 16 163/101 95 11:24 (121) 06/23/18 Room Air 01:31 Intake and Output 06/23/18 06/23/18 06/24/18 1515:00 23:00 07:00 IntakeIntake Total 950 ml 240 ml OutputOutput Total 800 ml BalanceBalance 950 ml -560 ml Results/Medications Result Diagram: 06/23/18 0607 06/23/18 06 Home Meds Active Scripts Nitroglycerin* (Nitroglycerin* SL) 0.4 Mg Tab.subl, 0.4 MG SL Q5MIN PRN for CHEST PAIN, #1 BOTTLE Prov:SHAYY PERRY BELT LOOP MAKER 05/17/18 Spironolactone* (Aldactone*) 25 Mg Tablet, 25 MG PO DAILY, #30 TAB Prov:SHAYY PERRY BELT LOOP MAKER 05/17/18 Sildenafil Citrate* (Revatio*) 20 Mg Tab, 20 MG PO TID, #90 TAB Prov:SHAYY PERRY BELT LOOP MAKER 05/17/18 Reported Medications Allopurinol* (Allopurinol*) 100 Mg Tablet, 100 MG PO DAILY, TAB 05/15/18 Aspirin* (Aspirin* EC) 81 Mg Tablet.dr, 81 MG PO DAILY, TAB 05/15/18 Furosemide* (Furosemide*) 20 Mg Tablet, 20 MG PO BID, #30 TAB 05/15/18 Atorvastatin Calcium* (Atorvastatin Calcium*) 20 Mg Tablet, 20 MG PO QHS, #30 TAB 05/15/18 Omeprazole* (Omeprazole*) 40 Mg Capsule.dr, 40 MG PO DAILY, #30 CAP 05/15/18 Medications Current Medications IV Flush (NS 3 ml) 3 ml PER PROTOCOL IV ; Start 06/23/18 at 00:00 Ondansetron HCl (Zofran Inj) 4 mg Q6H PRN IV NAUSEA/VOMITING; Start 06/23/18 at 00:00 Nitroglycerin (Nitroglycerin (Sl Tab) 0.4 Mg) 1 tab Q5M PRN SL .CHEST PAIN Last administered on 06/23/18at 02:50; Admin Dose 1 TAB; Start 06/23/18 at 00:00 Acetaminophen (Tylenol Tab) 650 mg Q6H PRN PO .PAIN 1-3 OR TEMP; Start 06/23/18 at 00:00 Heparin Sodium (Porcine) (Heparin (5000 Units/1ml)) 5,000 unit Q12 SC Last administered on 06/24/18 08:38; Admin Dose 5,000 UNIT; Start 06/23/18 at 09:00 Albuterol/ Ipratropium (Duoneb) 3 ml Q2H RESP THERAPY PRN HHN SHORTNESS OF BREATH; Start 06/23/18 at 00:00 Allopurinol (Zyloprim) 100 mg DAILY PO Last administered on 06/24/18 08:36; Admin Dose 100 MG; Start 06/23/18 at 09:00 Aspirin (Halfprin) 81 mg DAILY PO Last administered on 06/24/18 08:35; Admin Dose 81 MG; Start 06/23/18 at 09:00 Atorvastatin Calcium (Lipitor) 20 mg QHS PO Last administered on 06/23/18 20:12; Admin Dose 20 MG; Start 06/23/18 at 21:00 Furosemide (Lasix) 20 mg BID PO Last administered on 06/24/18 08:35; Admin Dose 20 MG; Start 06/23/18 at 09:00 Spironolactone (Aldactone) 25 mg DAILY PO Last administered on 06/24/18 08:36; Admin Dose 25 MG; Start 06/23/18 at 09:00 Pantoprazole (Protonix Tab) 40 mg DAILY@06 PO Last administered on 06/24/18 05:40; Admin Dose 40 MG; Start 06/23/18 at 06:00 Sildenafil Citrate (Revatio) 10 mg TID PO ; Start 06/24/18 at 13:00; Status UNV Assessment/Plan Hospital Course (Demo Recall) Chest pain: Appears to be non-anginal troponin have been negative Severe pulmonary hypertension Lower extremity edema Arrhythmias with episodes of junctional rhythm but no syncope Abnormal EKG Episodes of dizziness. Possibly related to revatio vs others including junctional rhythm. Recommendation: dec Revatio for now. low dose diuretics LE U/S R/O DVT We will f/u on echocardiogram and PA pressure Thank you for this referral. We will continue to follow along with you WHITNEY MAY MD [facility] WHITNEY MAY MD June 24, 2018 12:54
--- NOTE | 2018-06-24 12:54 | PN ---
Date/Time of Note Date/Time of Note DATE: 06/24/18 TIME: 12:49 Assessment/Plan VTE Prophylaxis Risk score (from Nsg)>0 risk: 3 Pharmacological prophylaxis: heparin Lines/Catheters IV Catheter Type (from Nrsg): Saline Lock Assessment/Plan Hospital Course 57-year-old male with a history of diastolic CHF, dyslipidemia, gout, severe pulmonary hypertension (120 mmHg) admitted for chest pain and shortness of breath 1. Chest pain likely secondary to pulmonary hypertension -Symptoms began after patient stopped taking his sildenafil -Troponins are negative and pain is non-anginal -Cardiology consultation appreciated, chest pain is not concerning for ACS -Have resumed home sildenafil but have cut dose down to 10 mg 3 times daily per cardiology recognitions -Recent echo a month ago showed EF of 50%, stage I diastolic dysfunction and severe pulmonary hypertension with PA pressure of 120 mmHg 2. Severe pulmonary hypertension -Patient stopped the sildenafil 3 days prior to admission because of dizziness -Have cut sildenafil dosing by half to 10 mg 3 times daily -Patient does follow-up with a web site developer and wire twister as outpatient 3. Junctional rhythm -Metoprolol has been discontinued -Cardiology would like to monitor on telemetry overnight 4. History of diastolic CHF: Continue home meds 5. Dyslipidemia: Continue statin 6. Gout: Continue allopurinol Prophylaxis: Heparin DC planning: Patient with junctional rhythm, cardiology has discontinued metoprolol and would like to monitor overnight, anticipate discharging patient tomorrow with new decreased dose of sildenafil at 10 mg 3 times daily if he zach erates this new regimen Result Diagram: 06/23/18 0607 06/23/18 0607 Subjective 24 Hr Interval Summary Constitutional: no complaints Exam/Review of Systems Exam Vitals Vital Signs Date Temp Pulse Resp B/P (MAP) Pulse Ox O2 O2 Flow FiO2 Time Delivery Rate 06/24/18 67 12:34 06/24/18 97.4 16 163/101 95 11:24 (121) 06/23/18 Room Air 01:31 Intake and Output 06/23/18 06/23/18 06/24/18 1515:00 23:00 07:00 IntakeIntake Total 950 ml 240 ml OutputOutput Total 800 ml BalanceBalance 950 ml -560 ml Constitutional: alert, oriented Respiratory: clear to auscultation Cardiovascular: regular rate and rhythm Gastrointestinal: soft; No distended Musculoskeletal: nl extremities to inspection Medications Medication Current Medications IV Flush (NS 3 ml) 3 ml PER PROTOCOL IV ; Start 06/23/18 at 00:00 Ondansetron HCl (Zofran Inj) 4 mg Q6H PRN IV NAUSEA/VOMITING; Start 06/23/18 at 00:00 Nitroglycerin (Nitroglycerin (Sl Tab) 0.4 Mg) 1 tab Q5M PRN SL .CHEST PAIN Last administered on 06/23/18at 02:50; Admin Dose 1 TAB; Start 06/23/18 at 00:00 Acetaminophen (Tylenol Tab) 650 mg Q6H PRN PO .PAIN 1-3 OR TEMP; Start 06/23/18 at 00:00 Heparin Sodium (Porcine) (Heparin (5000 Units/1ml)) 5,000 unit Q12 SC Last administered on 06/24/18 08:38; Admin Dose 5,000 UNIT; Start 06/23/18 at 09:00 Albuterol/ Ipratropium (Duoneb) 3 ml Q2H RESP THERAPY PRN HHN SHORTNESS OF BREATH; Start 06/23/18 at 00:00 Allopurinol (Zyloprim) 100 mg DAILY PO Last administered on 06/24/18 08:36; Admin Dose 100 MG; Start 06/23/18 at 09:00 Aspirin (Halfprin) 81 mg DAILY PO Last administered on 06/24/18 08:35; Admin Dose 81 MG; Start 06/23/18 at 09:00 Atorvastatin Calcium (Lipitor) 20 mg QHS PO Last administered on 06/23/18 20:12; Admin Dose 20 MG; Start 06/23/18 at 21:00 Furosemide (Lasix) 20 mg BID PO Last administered on 06/24/18 08:35; Admin Dose 20 MG; Start 06/23/18 at 09:00 Spironolactone (Aldactone) 25 mg DAILY PO Last administered on 06/24/18 08:36; Admin Dose 25 MG; Start 06/23/18 at 09:00 Pantoprazole (Protonix Tab) 40 mg DAILY@06 PO Last administered on 06/24/18 05 :40; Admin Dose 40 MG; Start 06/23/18 at 06:00 Sildenafil Citrate (Revatio) 20 mg BID PO Last administered on 06/24/18 08:40; Admin Dose 20 MG; Start 06/23/18 at 21:00 GABY SALAZAR June 24, 2018 12:54
--- NOTE | 2018-06-24 14:01 | RADRPT ---
Echocardiogram Report Patient Name: SUZETTE FRANCISPatient ID: [id number] : 1960 (57y 10m)Study Date: 06/24/2018 7:46:53 AM Gender: MAccession #: [id number] Tech: KAPIL Location: Ref.Physician: WHITNEY MARQUEZ Height(Cm): 170 BSA: 1.9Weight(Kg): 76.7 Quality: AdequateAccount #: Procedures: Echocardiographic Report: Transthoracic echocardiogram with complete 2D, M-Mode, and Doppler examination. Indications: Congestive Heart Failure, Pericardial Effusion, and Pulmonary Hypertension. Measurements: 2D/M Mode Doppler Measurement Value Normal Range Measurement Value Normal Range LVIDd 2D 4.6 [ 4.2 - 5.8 ] cm AV Peak Da 0.8 [ 100.0 - 170.0 ] cm/se c LVIDs 2D 3.4 [ 2.5 - 4.0 ] cm AV Peak PG 3.0 [ 2.0 - 9.0 ] mmHg LVPWd 2D 1.0 [ 0.6 - 1.0 ] cm LVOT Peak Da 0.6 [ 70.0 - 110.0 ] cm/sec IVSd 2D 1.4 [ 0.6 - 1.0 ] cm LVOT Peak PG 1.0 [ 2.0 - 6.0 ] mmHg AoR Diam 2D 3.9 [ 2.6 - 3.4 ] cm MV E Peak Da 0.3 [ 60.0 - 130.0 ] cm/sec EF 2D 49.2 [ 52.0 - 72.0 ] percent MV A Peak Da 0.8 [ 100.0 - 120.0 ] cm/se c LA Dimen 2D 4.7 [ 3.0 - 4.0 ] cm MV E/A 0.4 [ 0.8 - 1.5 ] ratio MV PHT 80.0 [ 20.0 - 100.0 ] msec MV Decel Time 275 [ 104 - 258 ] msec MV Decel Webster 1 Lat E` Da 0.0 [ 10.0 - 15.0 ] cm/sec Lateral E/E` 9.4 [ 1.0 - 2.0 ] ratio MV E/A 0.4 [ 0.8 - 1.5 ] ratio MVA PHT 2.8 [ 2.0 - 4.0 ] cm2 TR Peak Da 4.8 [ 100.0 - 280.0 ] cm/se c TR Peak PG 91.0 mmHg PV Peak Da 1.1 [ 40.0 - 80.0 ] cm/sec PV Peak PG 5.0 mmHg RVSP 111.0 [ 10.0 - 36.0 ] mmHg RA Pressure 20.0 mmHg Findings: Left Ventricle: Normal left ventricular cavity size. Mild concentric left ventricular hypertrophy. Severe global left ventricular systolic dysfunction. Paradoxical septal motion consistent with IVCD or bundle branch block. Ejection fraction is visually estimated at 45-45 %. Tissue Doppler/Mitral Doppler indices are consistent with impaired relaxation (Stage I diastolic dysfunction). E/E'= 9. Right Ventricle: Severe enlargement of right ventricle. Severe right ventricular hypokinesis. Flattened Septum in diastole ("D"shaped left ventricle) consistent with RV volume overload. Left Atrium: There is moderate enlargement of left atrium this is best appreciated from parasternals measurements, the apical views are cut-off due to RV/RA enlargement. Right Atrium: There is severe enlargement of right atrium. Atrial Septum: Not well visualized. Mitral Valve: Normal appearance of the mitral valve. Trace mitral regurgitation. Aortic Valve: No significant aortic stenosis or insufficiency. Normal trileaflet aortic valve structure. Tricuspid Valve: Normal appearance of the tricuspid valve, there is possibly mild calcification noted on TV chordal structure. Estimated peak PA systolic pressure 111 mmHg. There is moderate to severe tricuspid regurgitation. Pulmonic Valve: Normal pulmonic valve appearance. There is mild pulmonic regurgitation. Pericardium: Normal pericardium with no significant pericardial effusion. Aorta: There is mild aortic root dilation. IVC: Dilated IVC with respiratory collapse consistent with elevated right atrial pressure. Pulmonary Artery: Normal pulmonary artery size. Conclusions: There is severe enlargement of right atrium. There is moderate enlargement of left atrium this is best appreciated from parasternals measurements, the apical views are cut-off due to RV/RA enlargement. Severe enlargement of right ventricle. Severe right ventricular hypokinesis. Flattened Septum in diastole ("D"shaped left ventricle) consistent with RV volume overload. Normal left ventricular cavity size. Mild concentric left ventricular hypertrophy. Severe global left ventricular systolic dysfunction. Paradoxical septal motion consistent with IVCD or bundle branch block. Ejection fraction is visually estimated at 45-45 %. Tissue Doppler/Mitral Doppler indices are consistent with impaired relaxation (Stage I diastolic dysfunction). E/E'= 9. Normal appearance of the mitral valve. Trace mitral regurgitation. No significant aortic stenosis or insufficiency. Normal trileaflet aortic valve structure. Normal appearance of the tricuspid valve, there is possibly mild calcification noted on TV chordal structure. Estimated peak PA systolic pressure 111 mmHg. There is moderate to severe tricuspid regurgitation. n. Electronically Signed By: Whitney Marquez 2018-06-24 14:00:51 PDT
[2018-06-24] MEDS: ATORVASTATIN 20 MG TAB PO SCH (20:18)
[2018-06-25] VITALS (8 sets, daily range): BP systolic 140–182; BP diastolic 86–104; PULSE 54–78; RESP 16–18
[2018-06-25] MEDS ORDERED: hydrALAzine 20 MG INJ IV ONE (04:30)
[2018-06-25] MEDS: PANTOPRAZOLE (EC) 40 MG TAB PO SCH (05:07)
[2018-06-25] MEDS: ALLOPURINOL 100 MG TAB PO SCH (09:10)
[2018-06-25] MEDS: ASPIRIN (EC) 81 MG TAB PO SCH (09:10)
[2018-06-25] MEDS: SPIRONOLACTONE 25 MG TAB PO SCH (09:10)
[2018-06-25] MEDS: FUROSEMIDE 20 MG TAB PO SCH (09:11)
[2018-06-25] MEDS: SILDENAFIL 20 MG TAB PO SCH ×2 (09:11→13:14)
[2018-06-25] MEDS: HEPARIN 5,000 UNIT/1 ML VIAL SC SCH (09:17)
[2018-06-25] MEDS ORDERED: SILD20TA13 PO (12:30)
--- NOTE | 2018-06-25 14:24 | CONS ---
Consult Date/Type/Reason Admit Date/Time June 22, 2018 at 23:22 Initial Consult Date 06/23/18 Type of Consultation: CV Requesting Provider: GABY SALAZAR Date/Time of Note DATE: 06/25/18 TIME: 14:22 Subjective Cardiology follow-up progress note Subjective: Discussed with the staff and telemetry was reviewed. Patient has short episodes of junctional rhythm. Heart rate has remained stable no pauses noted and patient have no more dizziness. She wants to go home now Patient complains of intermittent dizziness especially when he takes his REVATIO but now with cutting the dose down to half a tablet he does not have any more dizziness No bleeding no chest pain or pressure now Objective: General: no acute distress HEENT: NC/AT. + Strabismus NECK: . no stridor. CV: RRR. systolic murmur; no gallop or rubs. PULM: no wheezing or rhonchi. GI: SOFT, NT, ND, no rebound or guarding Extremity: There is more edema of the left lower extremity compared to the right. 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 Psych: calm and pleasant rectal: deferred EKG June 22, 2018 showed junctional rhythm. Right bundle branch block specific ST-T wave abnormalities Echocardiogram done May [address] Roberts shows Lower limits of normal systolic function. Normal left ventricular cavity size. Mild concentric left ventricular hypertrophy. Ejection fraction is visually estimated at 50 %. Tissue Doppler/Mitral Doppler indices are consistent with impaired relaxation (Stage I diastolic dysfunction). Multiple segmental wall motion abnormalities. Moderate-severe right ventricular systolic dysfunction. Severe enlargement of right ventricle. There is moderate enlargement of left atrium. There is severe enlargement of right atrium. Right ventricular systolic pressure is consistent with severe pulmonary hypertension. Estimated peak PA systolic pressure 120 mmHg. There is severe tricuspid regurgitation. Mild mitral valve regurgitation. No significant aortic stenosis or insufficiency. Trivial pericardial effusion. Review of the old chart showed that CT pulmonary angiogram done 05/17/2018 shows: IMPRESSION: 1. No evidence of a pulmonary embolism. 2. Enlarged pulmonary arteries consistent with pulmonary hypertension. 3. Cardiomegaly. Dense intravenous contrast in the intrahepatic inferior vena cava and hepatic veins which may reflect right-sided heart failure. 4. Anasarca. 5. Resolved bilateral lower lobe nodular opacities likely infectious or inflammatory in etiology. Objective Vitals Vital Signs Date Temp Pulse Resp B/P (MAP) Pulse Ox O2 O2 Flow FiO2 Time Delivery Rate 06/25/18 76 12:00 06/25/18 97.3 16 140/99 95 11:33 (113) 06/23/18 Room Air 01:31 Intake and Output 06/24/18 06/24/18 06/25/18 1414:59 22:59 06:59 IntakeIntake Total 950 ml 700 ml OutputOutput Total 1300 ml BalanceBalance 950 ml -600 ml Results/Medications Result Diagram: 06/23/1860606/23/18606 Home Meds Active Scripts Sildenafil Citrate* (Revatio*) 20 Mg Tab, 10 MG PO TID, #45 TAB Prov:ROGERS QUINTANA 06/25/18 Nitroglycerin* (Nitroglycerin* SL) 0.4 Mg Tab.subl, 0.4 MG SL Q5MIN PRN for CHEST PAIN, #1 BOTTLE Prov:SHAYY PERRY MIXER LEVER OPERATOR 05/17/18 Spironolactone* (Aldactone*) 25 Mg Tablet, 25 MG PO DAILY, #30 TAB Prov:SHAYY PERRY MIXER LEVER OPERATOR 05/17/18 Reported Medications Allopurinol* (Allopurinol*) 100 Mg Tablet, 100 MG PO DAILY, TAB 05/15/18 Aspirin* (Aspirin* EC) 81 Mg Tablet.dr, 81 MG PO DAILY, TAB 05/15/18 Furosemide* (Furosemide*) 20 Mg Tablet, 20 MG PO BID, #30 TAB 05/15/18 Atorvastatin Calcium* (Atorvastatin Calcium*) 20 Mg Tablet, 20 MG PO QHS, #30 TAB 05/15/18 Omeprazole* (Omeprazole*) 40 Mg Capsule.dr, 40 MG PO DAILY, #30 CAP 05/15/18 Medications Current Medications IV Flush (NS 3 ml) 3 ml PER PROTOCOL IV ; Start 06/23/18 at 00:00 Ondansetron HCl (Zofran Inj) 4 mg Q6H PRN IV NAUSEA/VOMITING; Start 06/23/18 at 00:00 Nitroglycerin (Nitroglycerin (Sl Tab) 0.4 Mg) 1 tab Q5M PRN SL .CHEST PAIN Last administered on 06/23/18at 02:50; Admin Dose 1 TAB; Start 06/23/18 at 00:00 Acetaminophen (Tylenol Tab) 650 mg Q6H PRN PO .PAIN 1-3 OR TEMP; Start 06/23/18 at 00:00 Heparin Sodium (Porcine) (Heparin (5000 Units/1ml)) 5,000 unit Q12 SC Last a dministered on 06/25/18 09:17; Admin Dose 5,000 UNIT; Start 06/23/18 at 09:00 Albuterol/ Ipratropium (Duoneb) 3 ml Q2H RESP THERAPY PRN HHN SHORTNESS OF BREATH; Start 06/23/18 at 00:00 Allopurinol (Zyloprim) 100 mg DAILY PO Last administered on 06/25/18 09:10; Admin Dose 100 MG; Start 06/23/18 at 09:00 Aspirin (Halfprin) 81 mg DAILY PO Last administered on 06/25/18 09:10; Admin Dose 81 MG; Start 06/23/18 at 09:00 Atorvastatin Calcium (Lipitor) 20 mg QHS PO Last administered on 06/24/18 2 0:18; Admin Dose 20 MG; Start 06/23/18 at 21:00 Furosemide (Lasix) 20 mg BID PO Last administered on 06/25/18 09:11; Admin Dose 20 MG; Start 06/23/18 at 09:00 Spironolactone (Aldactone) 25 mg DAILY PO Last administered on 06/25/18 09:10; Admin Dose 25 MG; Start 06/23/18 at 09:00 Pantoprazole (Protonix Tab) 40 mg DAILY@06 PO Last administered on 06/25/18 05:07; Admin Dose 40 MG; Start 06/23/18 at 06:00 Sildenafil Citrate (Revatio) 10 mg TID PO Last administered on 06/25/18 13:14; Admin Dose 10 MG; Start 06/24/18 at 13:00 Assessment/Plan Hospital Course (Demo Recall) Chest pain: Appears to be non-anginal troponin have been negative Severe pulmonary hypertension Lower extremity edema Arrhythmias with episodes of junctional rhythm but no syncope Abnormal EKG Episodes of dizziness. Possibly related to revatio since not that the dose was cut down has resolved. Recommendation: Continue lower dose of Revatio for now. low dose diuretics Okay to discharge from standpoint. 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 We will continue to follow along with you WHITNEY MAY MD [facility] WHITNEY MAY MD June 25, 2018 14:23
--- NOTE | 2018-06-28 22:44 | DS ---
Date/Time of Note Date/Time of Note DATE: 06/28/18 TIME: 22:42 Discharge Summary Admission/Discharge Info Admit Date/Time June 22, 2018 at 23:22 Discharge Date/Time June 25, 2018 at 15:13 Discharge Diagnosis 57-year-old male with a history of diastolic CHF, dyslipidemia, gout, severe pulmonary hypertension (120 mmHg) admitted for chest pain and shortness of breath 1. Chest pain likely secondary to pulmonary hypertension -Symptoms began after patient stopped taking his sildenafil -Troponins are negative and pain is non-anginal -Cardiology consultation appreciated -Follow-up with outpatient telecine operator and communications billing analyst -Recommended to resume home sildenafil but at decreased frequency to twice daily, patient did not tolerate 3 times daily dosing -Recent echo a month ago showed EF of 50%, stage I diastolic dysfunction and severe pulmonary hypertension with PA pressure of 120 mmHg 2. Severe pulmonary hypertension -Patient stopped the sildenafil 3 days prior to admission because of dizziness, patient has been tolerating twice daily dosing, patient advised to continue twice daily dosing -Patient does follow-up with a communications billing analyst and telecine operator as outpatient 3. History of diastolic CHF: Continue home meds 4. Dyslipidemia: Continue statin 5. Gout: Continue allopurinol . Patient Condition: Stable Consults Cardiology: Bert Marquez MD, MD . Procedures See hospital course . Hospital Course Patient is a 57-year-old male with a history of diastolic CHF, dyslipidemia, gout, severe pulmonary hypertension (120 mmHg) admitted for chest pain and shortness of breath. Patient symptoms began 3 days prior to admission when he stopped taking his home sildenafil. Patient was taking the medication 3 times a day and stopped secondary to dizziness. Patient does follow-up with a communications billing analyst for his pulmonary hypertension as well as a telecine operator. Patient was told by his communications billing analyst that he will place him on an alternative medication for his pulmonary hypertension if he continues to be unable to tolerate sildenafil. Patient's troponins were negative and pain was noted to be non-anginal, patient was seen by cardiology. Patient did have a recent echo that showed an EF 50% with stage I diastolic dysfunction. Patient was placed back on sildenafil but at twice daily dosing which he did tolerate and was advised to continue this frequency, chest pain also resolved. Patient was stable for DC to follow-up with his outpatient telecine operator and communications billing analyst, on the day of discharge patient's vitals, labs and physical exam are stable. Above is the discharge summary by my partner. Patient's discharge was held yesterday because of elevated blood pressures. His medications have been adjusted and his blood pressure is better today. He remains stable for discharge. I have reviewed his vital signs and evaluated him. Home Meds Active Scripts Sildenafil Citrate* (Revatio*) 20 Mg Tab, 10 MG PO TID, #45 TAB Prov:ROGERS QUINTANA 06/25/18 Nitroglycerin* (Nitroglycerin* SL) 0.4 Mg Tab.subl, 0.4 MG SL Q5MIN PRN for CHEST PAIN, #1 BOTTLE Prov:SHAYY PERRY [employer] PERFORMANCE ENGINEER 05/17/18 Spironolactone* (Aldactone*) 25 Mg Tablet, 25 MG PO DAILY, #30 TAB Prov:SHAYY PERRY [employer] PERFORMANCE ENGINEER 05/17/18 Reported Medications Allopurinol* (Allopurinol*) 100 Mg Tablet, 100 MG PO DAILY, TAB 05/15/18 Aspirin* (Aspirin* EC) 81 Mg Tablet., 81 MG PO DAILY, TAB 05/15/18 Furosemide* (Furosemide*) 20 Mg Tablet, 20 MG PO BID, #30 TAB 05/15/18 Atorvastatin Calcium* (Atorvastatin Calcium*) 20 Mg Tablet, 20 MG PO QHS, #30 TAB 05/15/18 Omeprazole* (Omeprazole*) 40 Mg Capsule.dr, 40 MG PO DAILY, #30 CAP 05/15/18 Follow-up Plan Follow-up with your communications billing analyst and telecine operator as scheduled Primary Care Provider Not On Staff Doctor Time spent on discharge: > 30 minutes ROGERS QUINTANA June 28, 2018 22:44
== END 2018-06-25 15:13 | disposition home or self-care (01) | DRG 315 ==
LOC: E/R 21:47 → TEL 23:22
PROVIDERS: ADMIT Internal Medicine; ATTEND Family Medicine
DX: I27.20 Pulmonary hypertension, unspecified (principal); I50.30 Unspecified diastolic (congestive) heart failure; I49.2 Junctional premature depolarization; E78.5 Hyperlipidemia, unspecified; R42 Dizziness and giddiness; M10.9 Gout, unspecified; F10.21 Alcohol dependence, in remission; Z87.891 Personal history of nicotine dependence; R94.31 Abnormal electrocardiogram [ECG] [EKG]; Z86.12 Personal history of poliomyelitis; Z79.82 Long term (current) use of aspirin; Z86.718 Personal history of other venous thrombosis and embolism; T46.7X5A Adverse effect of peripheral vasodilators, initial encounter; Y92.230 Patient room in hospital as the place of occurrence of the external cause
CPT/HCPCS: 36415; 71045; 80048; 80053; 82550; 82553; 83735; 83880; 84484; 85025; 93005; 93306; J0360; J1644

== ENCOUNTER 2018-06-30 05:55 | Inpatient (IN) | payer OTHER ==
[~2018-06-30] VITALS: Ht 167.6 cm; Wt 78.6 kg
[2018-06-30] MEDS ORDERED: NITROGLYCERIN (SL) 0.4 MG TAB SL PRN ×2 (06:30→13:00)
--- NOTE | 2018-06-30 06:51 | ERD ---
ER Documentation Chief Complaint Chief Complaint chest pain since 11 pm HPI This is a 57-year-old male with a history of CHF, hypertension, pulmonary hypertension who is on sildenafil who presents to the emergency room for evaluation of chest pain. The patient states that he has had chest pain since 11 PM on June 29. He describes it as a pressure-like sensation in the center of his chest associated with mild shortness of breath. The patient states that he was admitted to the hospital earlier this month and was evaluated by ca rdiologist Dr. Marquez. The patient did have his sildenafil adjusted and the patient was discharged. He states that his chest pain is not associated with any nausea, vomiting, abdominal pain. He came to the ER for evaluation of his symptoms. ROS All systems reviewed and are negative except as per history of present illness. Medications Home Meds Active Scripts Sildenafil Citrate* (Revatio*) 20 Mg Tab, 10 MG PO TID, #45 TAB Prov:ROGERS QUINTANA 06/25/18 Nitroglycerin* (Nitroglycerin* SL) 0.4 Mg Tab.subl, 0.4 MG SL Q5MIN PRN for CHEST PAIN, #1 BOTTLE Prov:SHAYY PERRY CLOTH HAULER 05/17/18 Spironolactone* (Aldactone*) 25 Mg Tablet, 25 MG PO DAILY, #30 TAB Prov:SHAYY PERRY CLOTH HAULER 05/17/18 Reported Medications Allopurinol* (Allopurinol*) 100 Mg Tablet, 100 MG PO DAILY, TAB 05/15/18 Aspirin* (Aspirin* EC) 81 Mg Tablet.dr, 81 MG PO DAILY, TAB 05/15/18 Furosemide* (Furosemide*) 20 Mg Tablet, 20 MG PO BID, #30 TAB 05/15/18 Atorvastatin Calcium* (Atorvastatin Calcium*) 20 Mg Tablet, 20 MG PO QHS, #30 TAB 05/15/18 Omeprazole* (Omeprazole*) 40 Mg Capsule.dr, 40 MG PO DAILY, #30 CAP 05/15/18 Allergies Allergies: Coded Allergies: No Known Allergy (Unverified , 05/15/18) PMhx/Soc History of Surgery: No (Catarac surgery) Anesthesia Reaction: Yes Hx Neurological Disorder: No Hx Respiratory Disorders: No Hx Cardiac Disorders: No (CHF) Hx Psychiatric Problems: No Hx Miscellaneous Medical Probl: Yes (Pulmonary HTN, HTN, Gout) Hx Alcohol Use: No (former) Hx Substance Use: No Hx Tobacco Use: No Smoking Status: Never smoker Physical Exam Vitals Vital Signs Date Temp Pulse Resp B/P (MAP) Pulse Ox O2 O2 Flow FiO2 Time Delivery Rate 06/30/18 78 16 117/88 95 Nasal 3.0 07:18 (98) Cannula 06/30/18 2 06:30 06/30/18 97.2 82 18 155/112 94 06:04 (126) Physical Exam INITIAL VITAL SIGNS: Reviewed by me GENERAL: The patient is well developed and appropriate for usual state of health in no apparent distress HEENT: Dry mucous membranes, pupils equal, round, and reactive to light. EOMI. There is no scleral icterus. NECK: C-spine is soft and supple, there is no meningismus. There is no cervical lymphadenopathy. LUNGS: Coarse breath sounds bilaterally. There are no rales, wheezes or rhonchi. HEART: Regular rate and rhythm, no murmurs, clicks, rubs or gallops. ABDOMEN: Soft, non-tender, non-distended. There are bowel sounds in all four quadrants. No rebound or guarding. EXTREMITIES: There is no peripheral cyanosis or edema. No focal swelling or erythema. NEUROLOGICAL: The patient moves all four extremities with 5/5 strength. Cranial nerves II - XII are intact. Normal gait. Alert and oriented SKIN: There is no apparent rash or petechiae. HEME/LYMPHATIC: There is no evidence of excessive bruising or lymphedema. PSYCHIATRIC: The patient does not appear anxious or depressed. Result Diagram: 06/30/1820 06/30/1820 Results 24 hrs Laboratory Tests Test 06/30/18 06:20 White Blood Count 6.5 10^3/ul Red Blood Count 5.16 10^6/ul Hemoglobin 12.6 g/dl Hematocrit 42.1 % Mean Corpuscular Volume 81.6 fl Mean Corpuscular Hemoglobin 24.4 pg Mean Corpuscular Hemoglobin Concent 29.9 g/dl Red Cell Distribution Width 16.0 % Platelet Count 215 10^3/UL Mean Platelet Volume 10.2 fl Immature Granulocytes % 0.300 % Neutrophils % 64.2 % Lymphocytes % 20.9 % Monocytes % 10.3 % Eosinophils % 3.7 % Basophils % 0.6 % Nucleated Red Blood Cells % 0.0 /100WBC Immature Granulocytes # 0.020 10^3/ul Neutrophils # 4.2 10^3/ul Lymphocytes # 1.4 10^3/ul Monocytes # 0.7 10^3/ul Eosinophils # 0.2 10^3/ul Basophils # 0.0 10^3/ul Nucleated Red Blood Cells # 0.0 10^3/ul Sodium Level 139 mmol/L Potassium Level 5.2 mmol/L Chloride Level 108 mmol/L Carbon Dioxide Level 21 mmol/L Anion Gap 10 Blood Urea Nitrogen 33 mg/dl Creatinine 1.09 mg/dl Est Glomerular Filtrat Rate mL/min > 60 mL/min Glucose Level 88 mg/dl Calcium Level 10.1 mg/dl Troponin I 0.069 ng/ml B-Type Natriuretic Peptide 5330 PG/ML Current Medications Medications Dose Sig/Carmen Start Time Status Last (Trade) Ordered Route PRN Stop Time Admin Dose Reason Admin 1 tab Q5M UP TO 3 06/30/18 Nitroglycerin DOSES PRN 06:30 SL .CHEST (Nitroglyceri PAIN n (Sl Tab) 0.4 Mg) Ondansetron 4 mg ER BRIDGE 06/30/18 HCl (Zofran PRN IV 08:00 Inj) NAUSEA/VOMITI 07/01/18 07:59 NG 650 mg ER BRIDGE 06/30/18 Acetaminophen PRN PO 08:00 (Tylenol .MILD PAIN 07/01/18 07:59 Tab) 1-3 OR TEMP Procedures/MDM EKG: Rate/Rhythm: [Normal Sinus Rhythm with T wave abnormalities diffusely] QRS, ST, T-waves: [Diffuse T wave abnormalities with right bundle branch block Impression: [Normal sinus rhythm with right bundle branch block, T wave abnormalities more pronounced in the inferior leads, no ST elevation EKG: #2 Rate/Rhythm: [Normal Sinus Rhythm] QRS, ST, T-waves: [Right bundle branch block with diffuse T wave abn ormalities] Impression: [Right bundle branch block with diffuse T wave abnormalities, no ST elevation] Chest X-ray 1V Interpreted by me: Soft Tissue: No acute abnormalities Bones: No acute abnormalities Mediastinum/Cardiac Silhouette/Lungs: [Dilated pulmonary arteries] This 57-year-old male presents to the ER for evaluation of chest pain. The patient does have a history of hypertension, CHF, pulmonary artery hypertension and is on sildenafil. The patient was seen in the emergency room and admitted to the hospital earlier this month and the month prior. The patient did see waterway traffic checker . On my evaluation the patient did complain of active chest pain and I did obtain an EKG. This patient's EKG did look change from his previous EKG with more pronounced T wave inversions in the inferior and lateral leads. The patient did appear to have mildly more pronounced ST segments in aVR as compared to previous EKG. I did contact Dr. Langford who is on-call for Dr. Marquez. I have reviewed the EKG with him and he agrees that there is no STEMI at this time. He does state that he agrees with the fact that there are some pronounced changes on his new EKG and the patient would benefit from admission for serial troponins, cardiology consult. The patient was not giving any nitrates given the fact that he is on sildenafil. The patient will be admitted at this time to panel physician Dr. Childress. He will be placed on telemetry floor for repeat EKG and troponin trending Critical Care: Excluding all billable procedures Time: 47 minutes Treatments/Evaluations: Close monitoring and treatment of unstable vital signs, cardiorespiratory, and neurologic status, while maintaining tight balance of fluid, respiratory, and cardiac interventions. Departure Diagnosis: Primary Impression: Chest pain Additional Impressions: Acute electrocardiogram changes Pulmonary artery hypertension Condition: LISA Roberts DO June 30, 2018 06:51
[2018-06-30] MEDS ORDERED: ACETAMINOPHEN 325 MG TAB PO PRN ×2 (08:00→13:00)
[2018-06-30] MEDS ORDERED: ONDANSETRON 4 MG INJ IV PRN ×2 (08:00→13:00)
--- NOTE | 2018-06-30 09:26 | CONS ---
Assessment/Plan Cardiology NYHA: III Heart Failure Type: Acute on Chronic Heart Failure Type: Both Assessment/Plan Assessment/Plan (Daily) Assessment 1) Severe pulmonary hypertension 2) EKG abnormalities without dynamic changes 3) Atypical chest pain 4) Negative biomarkers Plan: 1) Diuresis 2) BP control 3) Attempt of sildenafil 4) May consider Letairis if available to him as outpatient and if agreeable with pulmo Consultation Date/Type/Reason Admit Date/Time Type of Consult Cardiology Date/Time of Note DATE: 06/30/18 TIME: 09:22 Hx of Present Illness reports localized chest pain, not exertional, sharp, radiating at times to the right side, shooting character, mild SOB Respiratory: shortness of breath Cardiovascular: chest pain Gastrointestinal: no complaints Musculoskeletal: no complaints Neurologic: no complaints Past Medical History Medical History: congestive heart failure, hypertension, other Home Meds Active Scripts Sildenafil Citrate* (Revatio*) 20 Mg Tab, 10 MG PO TID, #45 TAB Prov:ROGERS QUINTANA 06/25/18 Nitroglycerin* (Nitroglycerin* SL) 0.4 Mg Tab.subl, 0.4 MG SL Q5MIN PRN for CHEST PAIN, #1 BOTTLE Prov:SHAYY PERRY SUPERINTENDENT [employer] 05/17/18 Spironolactone* (Aldactone*) 25 Mg Tablet, 25 MG PO DAILY, #30 TAB Prov:SHAYY PERRY SUPERINTENDENT [employer] 05/17/18 Reported Medications Allopurinol* (Allopurinol*) 100 Mg Tablet, 100 MG PO DAILY, TAB 05/15/18 Aspirin* (Aspirin* EC) 81 Mg Tablet.dr, 81 MG PO DAILY, TAB 05/15/18 Furosemide* (Furosemide*) 20 Mg Tablet, 20 MG PO BID, #30 TAB 05/15/18 Atorvastatin Calcium* (Atorvastatin Calcium*) 20 Mg Tablet, 20 MG PO QHS, #30 TAB 05/15/18 Omeprazole* (Omeprazole*) 40 Mg Capsule.dr, 40 MG PO DAILY, #30 CAP 05/15/18 Medications Current Medications Nitroglycerin (Nitroglycerin (Sl Tab) 0.4 Mg) 1 tab Q5M UP TO 3 DOSES PRN SL .CHEST PAIN; Start 06/30/18 at 06:30 Ondansetron HCl (Zofran Inj) 4 mg ER BRIDGE PRN IV NAUSEA/VOMITING; Start 06/30/18 at 08:00; Stop 07/01/18 at 07:59 Acetaminophen (Tylenol Tab) 650 mg ER BRIDGE PRN PO .MILD PAIN 1-3 OR TEMP; Start 06/30/18 at 08:00; Stop 07/01/18 at 07:59 Allergies: Coded Allergies: No Known Allergy (Unverified , 05/15/18) Past Surgical History Past Surgical Hx: no surgical history Social History Smoking Status: Never smoker Exam/Review of Systems Vital Signs Vitals Vital Signs Date Temp Pulse Resp B/P (MAP) Pulse Ox O2 O2 Flow FiO2 Time Delivery Rate 06/30/18 69 16 146/90 96 Nasal 3.0 08:22 (108) Cannula 06/30/18 97.2 06:04 Exam Constitutional: alert, oriented Head: normocephalic, atraumatic Neck: jvd Respiratory: diminished breath sounds Cardiovascular: regular rate and rhythm Gastrointestinal: soft Musculoskeletal: nl extremities to inspection Extremities: normal pulses Labs Result Diagram: 06/30/18 0620 06/30/18 0620 Results 24hrs Laboratory Tests Test 06/30/18 06:20 White Blood Count 6.5 # Red Blood Count 5.16 Hemoglobin 12.6 L Hematocrit 42.1 Mean Corpuscular Volume 81.6 L Mean Corpuscular Hemoglobin 24.4 L Mean Corpuscular Hemoglobin Concent 29.9 L Red Cell Distribution Width 16.0 H Platelet Count 215 Mean Platelet Volume 10.2 Immature Granulocytes % 0.300 Neutrophils % 64.2 Lymphocytes % 20.9 Monocytes % 10.3 Eosinophils % 3.7 Basophils % 0.6 Nucleated Red Blood Cells % 0.0 Immature Granulocytes # 0.020 Neutrophils # 4.2 Lymphocytes # 1.4 Monocytes # 0.7 Eosinophils # 0.2 Basophils # 0.0 Nucleated Red Blood Cells # 0.0 Sodium Level 139 Potassium Level 5.2 H Chloride Level 108 Carbon Dioxide Level 21 Anion Gap 10 Blood Urea Nitrogen 33 H Creatinine 1.09 Est Glomerular Filtrat Rate mL/min > 60 Glucose Level 88 Calcium Level 10.1 Troponin I 0.069 B-Type Natriuretic Peptide 5330 H Imaging Imaging EKG: diffuse ST depression Medications Medications Current Medications Nitroglycerin (Nitroglycerin (Sl Tab) 0.4 Mg) 1 tab Q5M UP TO 3 DOSES PRN SL .CHEST PAIN; Start 06/30/18 at 06:30 Ondansetron HCl (Zofran Inj) 4 mg ER BRIDGE PRN IV NAUSEA/VOMITING; Start 06/30/18 at 08:00; Stop 07/01/18 at 07:59 Acetaminophen (Tylenol Tab) 650 mg ER BRIDGE PRN PO .MILD PAIN 1-3 OR TEMP; Start 06/30/18 at 08:00; Stop 07/01/18 at 07:59 NAVID WISE MD June 30, 2018 09:26
[2018-06-30] MEDS ORDERED: INDO-39 ORAL (10:48)
[2018-06-30 11:26] VITALS: BP 155/97; PULSE 69; RESP 20
[2018-06-30 11:54] VITALS: Ht 167.6 cm; Wt 78.6 kg
[2018-06-30 12:01] VITALS: PULSE 58
[2018-06-30] MEDS ORDERED: morphine 2 MG INJ IV PRN (13:00)
[2018-06-30] MEDS ORDERED: DOCUSATE SODIUM 100 MG CAP PO PRN (13:00)
[2018-06-30] MEDS ORDERED: HYDROCODONE/APAP (5/325) TAB PO PRN (13:00)
[2018-06-30] MEDS ORDERED: NACL 0.9% 3 ML SYG IV SCH (13:00)
[2018-06-30] MEDS ORDERED: ZOLPIDEM 5 MG TAB PO PRN (13:00)
[2018-06-30] MEDS: PANTOPRAZOLE (EC) 40 MG TAB PO SCH (13:30)
[2018-06-30] MEDS: SPIRONOLACTONE 25 MG TAB PO SCH (13:30)
[2018-06-30] MEDS: ALLOPURINOL 100 MG TAB PO SCH (13:30)
[2018-06-30] MEDS: ASPIRIN (EC) 81 MG TAB PO SCH (13:30)
[2018-06-30 15:22] VITALS: BP 140/101; PULSE 53; RESP 20
--- NOTE | 2018-06-30 15:23 | HP ---
Date/Time of Note Date/Time of Note DATE: 06/30/18 TIME: 15:14 Assessment/Plan VTE Prophylaxis Pharmacological prophylaxis: LMWH Lines/Catheters IV [facility] Saline Lock Assessment/Plan Hospital Course 1. Chest pain like secondary to severe pulmonary hypertension Patient was recently hospitalized with similar symptoms and ACS was ruled out Trend troponins Cardiology consultation has been obtained Continue home sildenafil 2. Hypertension Continue home sildenafil Patient follows up with a head boys golf coach and cardiology as an outpatient 3. History of diastolic CHF: Continue home meds 4. Dyslipidemia: Continue statin 5. Gout: Continue allopurinol Prophylaxis: Lovenox . Result Diagram: 06/30/18 0620 06/30/18 0620 Results 24hrs Laboratory Tests Test 06/30/18 06:20 06/30/18 12:41 White Blood Count 6.5 # Red Blood Count 5.16 Hemoglobin 12.6 L Hematocrit 42.1 Mean Corpuscular Volume 81.6 L Mean Corpuscular Hemoglobin 24.4 L Mean Corpuscular Hemoglobin Concent 29.9 L Red Cell Distribution Width 16.0 H Platelet Count 215 Mean Platelet Volume 10.2 Immature Granulocytes % 0.300 Neutrophils % 64.2 Lymphocytes % 20.9 Monocytes % 10.3 Eosinophils % 3.7 Basophils % 0.6 Nucleated Red Blood Cells % 0.0 Immature Granulocytes # 0.020 Neutrophils # 4.2 Lymphocytes # 1.4 Monocytes # 0.7 Eosinophils # 0.2 Basophils # 0.0 Nucleated Red Blood Cells # 0.0 Sodium Level 139 Potassium Level 5.2 H Chloride Level 108 Carbon Dioxide Level 21 Anion Gap 10 Blood Urea Nitrogen 33 H Creatinine 1.09 Est Glomerular Filtrat Rate mL/min > 60 Glucose Level 88 Calcium Level 10.1 Troponin I 0.069 0.049 B-Type Natriuretic Peptide 5330 H Creatine Kinase 33 Creatine Kinase Index 5.7 Creatinine Kinase MB (Mass) 1.87 HPI/ROS Admit Date/Time Admit Date/Time June 30, 2018 Hx of Present Illness Patient is a 57-year-old male with a history of polio, diastolic CHF, dyslipidemia, gout, severe pulmonary hypertension (120 mmHg) who was recently a dmitted for chest pain. At that time ACS was ruled out. During that hospitalization it was noted that patient's chest pain was related to him having stopped his sildenafil which he did not tolerate. Patient's dose was cut in half patient was discharged with a new reduced regimen, patient has been tolerating the regimen but returns once again with chest pain. In ER imaging and labs do not suggest ACS, patient has no other complaints at this time. ROS Constitutional: no complaints, improved Eyes: no complaints ENT: no complaints Respiratory: no complaints Cardiovascular: chest pain Gastrointestinal: no complaints Genitourinary: no complaints Musculoskeletal: no complaints Skin: no complaints Neurologic: no complaints Endocrine: no complaints Lymphatic: no complaints Psychological: no complaints, nl mood/affect Immunologic: no complaints PMH/Family/Social Past Medical History As per [facility] Medications Current Medications IV Flush (NS 3 ml) 3 ml PER PROTOCOL IV ; Start 06/30/18 at 13:00 Ondansetron HCl (Zofran Inj) 4 mg Q6H PRN IV NAUSEA/VOMITING; Start 06/30/18 at 13:00 Acetaminophen (Tylenol Tab) 650 mg Q6H PRN PO .PAIN 1-3 OR TEMP; Start 06/30/18 at 13:00 Acetaminophen/ Hydrocodone Bitart ([place] (5/325)) 1 tab Q6H PRN PO .MOD PAIN 4- 6; Start 06/30/18 at 13:00 Morphine Sulfate (morphine) 2 mg Q4H PRN IV .SEVERE PAIN 7-10; Start 06/30/18 at 13:00 Docusate Sodium (Colace) 100 mg Q12H PRN PO .CONSTIPATION; Start 06/30/18 at 13:00 Zolpidem Tartrate (Ambien) 5 mg QHS PRN PO .INSOMNIA; Start 06/30/18 at 13:00 Enoxaparin Sodium (Lovenox) 40 mg DAILY SC ; Start 07/01/18 at 09:00 Allopurinol (Zyloprim) 100 mg DAILY PO Last administered on 06/30/18at 13:30; Admin Dose 100 MG; Start 06/30/18 at 13:00 Aspirin (Halfprin) 81 mg DAILY PO Last administered on 06/30/18at 13:30; Admin Dose 81 MG; Start 06/30/18 at 13:00 Atorvastatin Calcium (Lipitor) 20 mg QHS PO ; Start 06/30/18 at 21:00 Furosemide (Lasix) 20 mg BID DIURETICS PO ; Start 06/30/18 at 18:00 Nitroglycerin (Nitroglycerin (Sl Tab) 0.4 Mg) 1 tab [id number] PRN SL CHEST PAIN; Start 06/30/18 at 13:00 Sildenafil Citrate (Revatio) 10 mg TID PO ; Start 06/30/18 at 13:00 Spironolactone (Aldactone) 25 mg DAILY@0600 PO Last administered on 06/30/18at 13:30; Admin Dose 25 MG; Start 06/30/18 at 13:00 Pantoprazole (Protonix Tab) 40 mg DAILY@06 PO Last administered on 06/30/18at 13:30; Admin Dose 40 MG; Start 06/30/18 at 13:00 Coded Allergies: No Known Allergy (Unverified , 06/30/18) Family History Significant Family History: no pertinent family hx Social History Alcohol Use: rarely Smoking Status: Never smoker Drug Use: none Exam/Review of Systems Vital Signs Vitals Vital Signs Date Temp Pulse Resp B/P (MAP) Pulse Ox O2 O2 Flow FiO2 Time Delivery Rate 06/30/18 58 12:01 06/30/18 Nasal 2.0 11:30 Cannula 06/30/18 97.6 20 155/97 96 11:26 (116) Exam Constitutional: alert, oriented Respiratory: clear to auscultation Cardiovascular: regular rate and rhythm Gastrointestinal: soft; No distended Musculoskeletal: nl extremities to inspection GABY SALAZAR June 30, 2018 15:23
[2018-06-30] MEDS: SILDENAFIL 20 MG TAB PO SCH ×2 (15:25→20:31)
[2018-06-30 16:01] VITALS: PULSE 70
[2018-06-30] MEDS: FUROSEMIDE 20 MG TAB PO SCH (17:11)
[2018-06-30 19:35] VITALS: BP 116/85; PULSE 79; RESP 19
[2018-06-30 20:00] VITALS: PULSE 51
[2018-06-30] MEDS ORDERED: ATORVASTATIN 20 MG TAB PO SCH (21:00)
[2018-07-01] VITALS (12 sets, daily range): BP systolic 118–146; BP diastolic 88–98; PULSE 42–90; RESP 18–21
[2018-07-01] MEDS: SPIRONOLACTONE 25 MG TAB PO SCH (05:15)
[2018-07-01] MEDS: FUROSEMIDE 20 MG TAB PO SCH (05:15)
[2018-07-01] MEDS: PANTOPRAZOLE (EC) 40 MG TAB PO SCH (05:15)
[2018-07-01] MEDS ORDERED: NON-FORMULARY/PATIENT OWN MED (Omeprazole* 40 MG) PO SCH (09:00)
[2018-07-01] MEDS ORDERED: ENOXAPARIN 40 MG/0.4 ML SYG SC SCH (09:00)
[2018-07-01] MEDS: ALLOPURINOL 100 MG TAB PO SCH (09:11)
[2018-07-01] MEDS: ASPIRIN (EC) 81 MG TAB PO SCH (09:11)
[2018-07-01] MEDS: SILDENAFIL 20 MG TAB PO SCH ×2 (09:11→12:39)
--- NOTE | 2018-07-01 10:36 | PDOCDIS ---
Discharge Instructions CONDITION [id number] Patient Condition: [id number] Good HOME CARE INSTRUCTIONS: [id number] Diet Instructions: [id number] Regular ACTIVITY: [id number] Activity Restrictions: [id number] No Restrictions FOLLOW UP/APPOINTMENTS Follow-up Plan FOLLOW UP WITH YOUR SENIOR PYTHON DEVELOPER AND COMPLAINT INVESTIGATOR SCHEDULED GABY SALAZAR July 01, 2018 10:36
--- NOTE | 2018-07-01 11:56 | RADRPT ---
Vent Rate: 74 bpm RR Interval: 0 msec UT Interval: 0 msec QRS Duration: 150 msec QT Interval: 440 msec QTC Interval: 488 msec P-R-T [place]: 0 - 127 - -75 degrees Wide QRS rhythm Right bundle branch block T wave abnormality, consider inferolateral ischemia Abnormal ECG Electronically Signed By: *[facility]
--- NOTE | 2018-07-01 11:59 | DS ---
Date/Time of Note Date/Time of Note DATE: 07/01/18 TIME: 11:57 Discharge Summary Admission/Discharge Info Admit Date/Time June 30, 2018 at 07:44 Discharge Date/Time July 01, 2018 Discharge Diagnosis 1. Chest pain like secondary to severe pulmonary hypertension Chest pain is now resolved Patient was recently hospitalized with similar symptoms and ACS was ruled out Troponins are negative x3, EKG with no signs of ischemia Follow-up with outpatient corn detasseler machine operator Continue home sildenafil 2. Severe pulmonary hypertension Continue home sildenafil at current dose, patient did not tolerate 20 mg 3 times daily Patient follows up with a sap director and cardiology as an outpatient 3. History of diastolic CHF: Continue home meds 4. Dyslipidemia: Continue statin 5. Gout: Continue allopurinol Patient Condition: Good Hospital Course Patient is a 57-year-old male with a history of polio, diastolic CHF, dyslipidemia, gout, severe pulmonary hypertension (120 mmHg) who was recently ad mitted for chest pain. At that time ACS was ruled out. During that hospitalization it was noted that patient's chest pain was related to him having stopped his sildenafil which he did not tolerate. Patient's dose was cut in half patient was discharged with a new reduced regimen, patient has been tolerating the regimen but returned once again with chest pain. EKG and troponin show no evidence of ACS, patient's chest pain did resolve and etiology once again is likely secondary to his severe pulmonary hypertension. Patient does have an appointment with his sap director and corn detasseler machine operator in the coming weeks, patient stable for DC and on the day of DC patient's vitals, labs and physical exam are stable. Home Meds Active Scripts Sildenafil Citrate* (Revatio*) 20 Mg Tab, 10 MG PO TID, #45 TAB Prov:ROGERS QUINTANA 06/25/18 Nitroglycerin* (Nitroglycerin* SL) 0.4 Mg Tab.subl, 0.4 MG SL Q5MIN PRN for CHEST PAIN, #1 BOTTLE Prov:SHAYY PERRY FUNCTIONAL ARCHITECT 05/17/18 Spironolactone* (Aldactone*) 25 Mg Tablet, 25 MG PO DAILY, #30 TAB Prov:SHAYY PERRY FUNCTIONAL ARCHITECT 05/17/18 Reported Medications Indomethacin* (Indocin*) 50 Mg Cap, 1 CAP ORAL DAILY 06/30/18 Allopurinol* (Allopurinol*) 100 Mg Tablet, 100 MG PO DAILY, TAB 05/15/18 Aspirin* (Aspirin* EC) 81 Mg Tablet.dr, 81 MG PO DAILY, TAB 05/15/18 Furosemide* (Furosemide*) 20 Mg Tablet, 20 MG PO BID, #30 TAB 05/15/18 Atorvastatin Calcium* (Atorvastatin Calcium*) 20 Mg Tablet, 20 MG PO QHS, #30 TAB 05/15/18 Omeprazole* (Omeprazole*) 40 Mg Capsule.dr, 40 MG PO DAILY, #30 CAP 05/15/18 Follow-up Plan FOLLOW UP WITH YOUR SENIOR ELECTRICAL ENGINEER AND RN CLINICAL SCHEDULED Primary Care Provider Not On Staff Doctor Time spent on discharge: > 30 minutes GABY SALAZAR July 01, 2018 11:59
--- NOTE | 2018-07-01 13:37 | CONS ---
Assessment/Plan Cardiology NYHA: III Heart Failure Type: Acute on Chronic Heart Failure Type: Both Assessment/Plan Hospital Course (Demo Recall) 1) Severe pulmonary hypertension 2) Cardiomyopathy 3) Atypical chest pain 4) Negative biomarkers -no further sx -cont maintenance meds -outpt cards f/u Consultation Date/Type/Reason Admit Date/Time June 30, 2018 at 07:44 Initial Consult Date Type of Consult Cardiology Date/Time of Note DATE: 07/01/18 TIME: 13:34 24 HR Interval Summary Free Text/Dictation denies cp,sob,palp. feels better Exam/Review of Systems Vital Signs Vitals Vital Signs Date Temp Pulse Resp B/P (MAP) Pulse Ox O2 O2 Flow FiO2 Time Delivery Rate 07/01/18 90 12:01 07/01/18 98.3 20 118/93 96 11:03 (101) 07/01/18 Nasal 2.0 07:51 Cannula Intake and Output 06/30/18 06/30/18 07/01/18 1515:00 23:00 07:00 IntakeIntake Total 600 ml 250 ml OutputOutput Total 700 ml BalanceBalance 600 ml -450 ml Exam Constitutional: alert, oriented (nad) Head: normocephalic Respiratory: other (course bs, no wheeze) Cardiovascular: regular rate and rhythm (s1s2), systolic murmur Gastrointestinal: soft, non-tender, bowel sounds Extremities: edema (trace) Labs Result Diagram: 07/01/18 0502 07/01/18 0502 Results 24hrs Laboratory Tests Test 06/30/18 19:01 07/01/18 05:02 Creatine Kinase 37 Creatine Kinase Index 5.2 Creatinine Kinase MB (Mass) 1.92 Troponin I 0.052 White Blood Count 5.8 Red Blood Count 4.75 Hemoglobin 11.6 L Hematocrit 38.5 L Mean Corpuscular Volume 81.1 L Mean Corpuscular Hemoglobin 24.4 L Mean Corpuscular Hemoglobin Concent 30.1 L Red Cell Distribution Width 16.0 H Platelet Count 214 Mean Platelet Volume 11.5 H Immature Granulocytes % 0.200 Neutrophils % 63.6 Lymphocytes % 22.6 Monocytes % 9.8 Eosinophils % 3.3 Basophils % 0.5 Nucleated Red Blood Cells % 0.0 Immature Granulocytes # 0.010 Neutrophils # 3.7 Lymphocytes # 1.3 Monocytes # 0.6 Eosinophils # 0.2 Basophils # 0.0 Nucleated Red Blood Cells # 0.0 Sodium Level 135 Potassium Level 5.2 H Chloride Level 106 Carbon Dioxide Level 24 Anion Gap 5 Blood Urea Nitrogen 33 H Creatinine 0.99 Est Glomerular Filtrat Rate mL/min > 60 Glucose Level 84 Calcium Level 9.5 Phosphorus Level 4.4 Magnesium Level 2.2 Medications Medications Current Medications IV Flush (NS 3 ml) 3 ml PER PROTOCOL IV ; Start 06/30/18 at 13:00 Ondansetron HCl (Zofran Inj) 4 mg Q6H PRN IV NAUSEA/VOMITING; Start 06/30/18 at 13:00 Acetaminophen (Tylenol Tab) 650 mg Q6H PRN PO .PAIN 1-3 OR TEMP; Start 06/30/18 at 13:00 Acetaminophen/ Hydrocodone Bitart ([place] (5/325)) 1 tab Q6H PRN PO .MOD PAIN 4- 6; Start 06/30/18 at 13:00 Morphine Sulfate (morphine) 2 mg Q4H PRN IV .SEVERE PAIN 7-10; Start 06/30/18 at 13:00 Docusate Sodium (Colace) 100 mg Q12H PRN PO .CONSTIPATION; Start 06/30/18 at 13:00 Zolpidem Tartrate (Ambien) 5 mg QHS PRN PO .INSOMNIA; Start 06/30/18 at 13:00 Enoxaparin Sodium (Lovenox) 40 mg DAILY SC Last administered on 07/01/18 09:18; Admin Dose 40 MG; Start 07/01/18 at 09:00 Allopurinol (Zyloprim) 100 mg DAILY PO Last administered on 07/01/18 09:11; Admin Dose 100 MG; Start 06/30/18 at 13:00 Aspirin (Halfprin) 81 mg DAILY PO Last administered on 07/01/18 09:11; Admin Dose 81 MG; Start 06/30/18 at 13:00 Atorvastatin Calcium (Lipitor) 20 mg QHS PO Last administered on 06/30/18at 20:30; Admin Dose 20 MG; Start 06/30/18 at 21:00 Furosemide (Lasix) 20 mg BID DIURETICS PO Last administered on 07/01/18 05:15; Admin Dose 20 MG; Start 06/30/18 at 18:00 Nitroglycerin (Nitroglycerin (Sl Tab) 0.4 Mg) 1 tab [id number] PRN SL CHEST PAIN; Start 06/30/18 at 13:00 Sildenafil Citrate (Revatio) 10 mg TID PO Last administered on 07/01/18at 12:39; Admin Dose 10 MG; Start 06/30/18 at 13:00 Spironolactone (Aldactone) 25 mg DAILY@0600 PO Last administered on 07/01/18at 05:15; Admin Dose 25 MG; Start 06/30/18 at 13:00 Pantoprazole (Protonix Tab) 40 mg DAILY@06 PO Last administered on 07/01/18at 05:15; Admin Dose 40 MG; Start 06/30/18 at 13:00 Goran Haley DO July 01, 2018 13:36
== END 2018-07-01 16:29 | disposition home or self-care (01) | DRG 315 ==
LOC: E/R 05:55 → 6WM 07:44
PROVIDERS: ADMIT Internal Medicine; ATTEND Internal Medicine
DX: I27.20 Pulmonary hypertension, unspecified (principal); I42.9 Cardiomyopathy, unspecified; I10 Essential (primary) hypertension; M10.9 Gout, unspecified; R07.89 Other chest pain
CPT/HCPCS: 36415; 71045; 80048; 82550; 82553; 83735; 83880; 84100; 84484; 85025; 87081; 93005; J1650

== ENCOUNTER 2018-08-07 20:49 | Emergency (ER) | payer OTHER ==
[~2018-08-07] VITALS: Ht 172.7 cm; Wt 80.9 kg
[~2018-08-07 20:49] MED LIST changes: +INDO-39 ORAL
[2018-08-07 20:50] VITALS: Ht 172.7 cm; Wt 80.9 kg
[2018-08-07] MEDS ORDERED: ASPIRIN 325 MG TAB PO STA (21:12)
--- NOTE | 2018-08-07 21:13 | ERD ---
ER Documentation Chief Complaint Chief Complaint CP X'S 3 DAYS HPI 57-year-old male history of severe pulmonary hypertension on sildenafil, diastolic CHF, dyslipidemia, gout and polio presents the ED complaining of chest pain. Patient has chronic, sharp, waxing and waning chest pain which seems to be worse over the last several days. Chronic shortness of breath, O2 dependent without productive cough or hemoptysis. Denies nausea, vomiting or diaphoresis. No leg pain or swelling. Denies leg pain or swelling. No URI symptoms, rhinorrhea or body aches. No relieving or exacerbating factors. No fevers or chills. ROS All systems reviewed and are negative except as per history of present illness. Medications Home Meds Active Scripts Sildenafil Citrate* (Revatio*) 20 Mg Tab, 10 MG PO TID, #45 TAB Prov:ROGERS QUINTANA 06/25/18 Spironolactone* (Aldactone*) 25 Mg Tablet, 25 MG PO DAILY, #30 TAB Prov:SHAYY PERRY CADDY MASTER 05/17/18 Reported Medications Hydralazine Hcl* (Apresoline*) 50 Mg Tab, 50 MG PO TID TAKE 1 TABLET BY MOUTH THREE TIMES A DAY; 08/07/18 Indomethacin* (Indocin*) 50 Mg Cap, 1 CAP ORAL DAILY 06/30/18 Allopurinol* (Allopurinol*) 100 Mg Tablet, 100 MG PO DAILY, TAB 05/15/18 Aspirin* (Aspirin* EC) 81 Mg Tablet.dr, 81 MG PO DAILY, TAB 05/15/18 Furosemide* (Furosemide*) 20 Mg Tablet, 20 MG PO BID, #30 TAB 05/15/18 Atorvastatin Calcium* (Atorvastatin Calcium*) 20 Mg Tablet, 20 MG PO QHS, #30 TAB 05/15/18 Omeprazole* (Omeprazole*) 40 Mg Capsule.dr, 40 MG PO DAILY, #30 CAP 05/15/18 Discontinued Scripts Nitroglycerin* (Nitroglycerin* SL) 0.4 Mg Tab.subl, 0.4 MG SL Q5MIN PRN for CHEST PAIN, #1 BOTTLE Prov:SHAYY PERRY CADDY MASTER 05/17/18 Allergies Allergies: Coded Allergies: No Known Allergy (Unverified , 08/07/18) PMhx/Soc Reviewed in chart. As per HPI. History of Surgery: Yes (Right eye cataract surgery) Anesthesia Reaction: No Hx Neurological Disorder: Yes (Polio) Hx Respiratory Disorders: No Hx Cardiac Disorders: Yes (Pulmonary HTN, CHF) Hx Psychiatric Problems: No Hx Miscellaneous Medical Probl: Yes (gout) Hx Alcohol Use: Yes (sober since 2011) Hx Substance Use: No Hx Tobacco Use: No Smoking Status: Never smoker FmHx No sudden cardiac Physical Exam Vitals Vital Signs Date Temp Pulse Resp B/P (MAP) Pulse Ox O2 O2 Flow FiO2 Time Delivery Rate 08/07/18 98.6 68 20 141/96 99 Room Air 23:15 (111) 08/07/18 Nasal 2 21:27 Cannula 08/07/18 97.2 70 18 170/97 96 20:50 (121) Physical Exam Const: Chronically ill-appearing, mild distress, anxious. Head: Atraumatic Eyes: Normal Conjunctiva ENT: Normal External Ears, Nose and Mouth. Neck: Full range of motion. No meningismus. Resp: Clear to auscultation bilaterally Cardio: Regular rate and rhythm, no murmurs Abd: Soft, non tender, non distended. Normal bowel sounds Skin: No petechiae or rashes Back: No midline or flank tenderness Ext: Atrophic right lower extremity secondary to polio. No calf swelling or tenderness. No edema. Neur: Awake and alert Psych: Anxious but not depressed. Result Diagram: 08/07/18210908/07/182109 Results 24 hrs Laboratory Tests Test 08/07/18 21:10 White Blood Count 6.9 10^3/ul Red Blood Count 5.61 10^6/ul Hemoglobin 12.3 g/dl Hematocrit 41.9 % Mean Corpuscular Volume 74.7 fl Mean Corpuscular Hemoglobin 21.9 pg Mean Corpuscular Hemoglobin Concent 29.4 g/dl Red Cell Distribution Width 18.0 % Platelet Count 233 10^3/UL Mean Platelet Volume 10.9 fl Immature Granulocytes % 0.300 % Neutrophils % 69.2 % Lymphocytes % 17.7 % Monocytes % 10.4 % Eosinophils % 1.7 % Basophils % 0.7 % Nucleated Red Blood Cells % 0.0 /100WBC Immature Granulocytes # 0.020 10^3/ul Neutrophils # 4.8 10^3/ul Lymphocytes # 1.2 10^3/ul Monocytes # 0.7 10^3/ul Eosinophils # 0.1 10^3/ul Basophils # 0.1 10^3/ul Nucleated Red Blood Cells # 0.0 10^3/ul Sodium Level 141 mmol/L Potassium Level 3.9 mmol/L Chloride Level 106 mmol/L Carbon Dioxide Level 22 mmol/L Anion Gap 13 Blood Urea Nitrogen 26 mg/dl Creatinine 1.34 mg/dl Est Glomerular Filtrat Rate mL/min 55 mL/min Glucose Level 88 mg/dl Calcium Level 10.0 mg/dl Troponin I 0.034 ng/ml Current Medications Medications Dose Sig/Carmen Start Time Status Last (Trade) Ordered Route PRN Stop Time Admin Dose Reason Admin Aspirin 325 mg ONCE STAT 08/07/18 DC 08/07/18 (Aspirin) PO 21:12 21:31 08/07/18 21:30 1 tab ONCE ONCE 08/07/18 DC 08/07/18 Acetaminophen PO 22:00 21:41 / 08/07/18 22:01 Hydrocodone Bitart ([place] (5/325)) Procedures/MDM DOCUMENTS REVIEWED: ED nurse, prior ED, prior records EKG: Time: 2052. Sinus rhythm. Ventricular rate 87. Right bundle branch block with wide QRS of 156 ms. My Interpretation IMAGING: PROCEDURE: XR Chest. CLINICAL INDICATION: Chest pain TECHNIQUE: Frontal chest x-ray was obtained. COMPARISON: Chest x-ray October 13, 2015 FINDINGS: There is cardiomegaly. Mediastinum is not widened. There is marked enlargement of the pulmonary arteries compatible with pulmonary hypertension. Lungs remain clear of any infiltrates. No effusion or pneumothorax is seen. The osseous structures are intact. IMPRESSION: Cardiomegaly. Markedly enlarged pulmonary arteries compatible with pulmonary hypertension. No pneumonia or mass. .Jaquan Monk MD, MD Date Time Electronically viewed and signed by .Jaquan Monk MD, on 08/07/2018 22:12 .A/ CALLS/CONSULTATIONS: Time: 21:40. Dr Peterson, ornamental rail installer. Recommends discharge and follow-up tomorrow in the office. CALLS/CONSULTATIONS:Time: 2144. Dr Fakheri, cardiology. Patient had a right heart cath July 20 which revealed very high pulmonary pressures. Recommends discharge if troponin is negative and follow-up in the office as scheduled. MEDICAL DECISION MAKIN-year-old male history of severe pulmonary hypertension on sildenafil, diastolic CHF, dyslipidemia, gout and polio presents the ED complaining of chest pain. Patient has chronic, sharp, waxing and waning chest pain which seems to be worse over the last several days. Exam and work up not consistent w/ ischemia, arrhythmia, PE or dissection. CBC to evaluate for leukocytosis and anemia reveals mild anemia consistent with prior results. Chemistry shows elevated BUN and creatinine which is slightly worse than in June but no electrolyte abnormalities or hyperglycemia. Troponin is 0.034 but is chronically elevated and actually lower than it was in June. Chest is consistent with pulmonary hypertension but there is no radiographic evidence of CHF, pneumonia or pneumothorax. Case discussed with the patient's ironworker and ornamental rail installer. Patient with chronic chest pain secondary to pulmonary hypertension and acute coronary syndrome is unlikely. Pain decreased with Simms. Patient's thoracic symptoms have stabilized while in the department. Stable for discharge with precautionary instructions and outpatient follow-up as counseled. Counseled patient and family regarding diagnostic workup, diagnosis and need for followup. Understands to return to ED if symptoms recur, worsen or any other concerns. Departure Diagnosis: Primary Impression: Chest pain Chest pain type: unspecified Qualified Codes: R07.9 - Chest pain, unspecified Additional Impression: Severe pulmonary arterial systolic hypertension Condition: Stable BLAINE SALDIVAR MD Aug 07, 2018 21:13
[2018-08-07] MEDS ORDERED: HYDROCODONE/APAP (5/325) TAB PO ONE (22:00)
[2018-08-07] MEDS ORDERED: HYDR-3672 PO (22:09)
[2018-08-07 23:15] VITALS: BP 141/96; PULSE 68; RESP 20
== END 2018-08-07 23:17 | disposition home or self-care (01) ==
LOC: E/R 20:49
DX: I27.21 Secondary pulmonary arterial hypertension (principal); I11.0 Hypertensive heart disease with heart failure; I50.9 Heart failure, unspecified; R40.2142 Coma scale, eyes open, spontaneous, at arrival to emergency department; R40.2252 Coma scale, best verbal response, oriented, at arrival to emergency department; R40.2362 Coma scale, best motor response, obeys commands, at arrival to emergency department; Z79.82 Long term (current) use of aspirin
CPT/HCPCS: 36415; 71045; 80048; 84484; 85025; 93005

== ENCOUNTER 2018-08-12 04:08 | Emergency (ER) | payer OTHER ==
[~2018-08-12] VITALS: Ht 167.6 cm; Wt 78.6 kg
[~2018-08-12 04:08] MED LIST changes: +HYDR-3672 PO; -NITR0.4T32 SL
[2018-08-12 04:11] VITALS: Ht 167.6 cm; Wt 78.6 kg
[2018-08-12] MEDS ORDERED: BELLADONNA/PHENOBARBITAL TAB PO STA (05:34)
[2018-08-12] MEDS ORDERED: LIDOCAINE/MYLANTA 40 ML BTL PO STA (05:34)
--- NOTE | 2018-08-12 06:45 | ERD ---
ER Documentation Chief Complaint Chief Complaint abdominal pain x 1 day HPI 57-year-old gentleman history of polio, cardiac disease who presents to the emergency room complaining of epigastric and periumbilical abdominal burning. He has a prolonged history of gastritis and reflux. Patient states that he ran out of his omeprazole. He describes postprandial symptoms with nonradiating pain. The pain is moderate at this time. He denies any chest pain or shortness of breath. Patient does have a known cardiac history but he states this is very clearly consistent with prior, known gastric issues.+ ROS All systems reviewed and are negative except as per history of present illness. Medications Home Meds Active Scripts Omeprazole* (Omeprazole*) 40 Mg Capsule., 40 MG PO DAILY for 30 Days, CAP 2 Refills Prov:MASON SANDOVAL MD 08/12/18 Sildenafil Citrate* (Revatio*) 20 Mg Tab, 10 MG PO TID, #45 TAB Prov:ROGERS QUINTANA 06/25/18 Spironolactone* (Aldactone*) 25 Mg Tablet, 25 MG PO DAILY, #30 TAB Prov:SHAYY PERRY NP 05/17/18 Reported Medications Hydralazine Hcl* (Apresoline*) 50 Mg Tab, 50 MG PO TID TAKE 1 TABLET BY MOUTH THREE TIMES A DAY; 08/07/18 Indomethacin* (Indocin*) 50 Mg Cap, 1 CAP ORAL DAILY 06/30/18 Allopurinol* (Allopurinol*) 100 Mg Tablet, 100 MG PO DAILY, TAB 05/15/18 Aspirin* (Aspirin* EC) 81 Mg Tablet.dr, 81 MG PO DAILY, TAB 05/15/18 Furosemide* (Furosemide*) 20 Mg Tablet, 20 MG PO BID, #30 TAB 05/15/18 Atorvastatin Calcium* (Atorvastatin Calcium*) 20 Mg Tablet, 20 MG PO QHS, #30 TAB 05/15/18 Omeprazole* (Omeprazole*) 40 Mg Capsule.dr, 40 MG PO DAILY, #30 CAP 05/15/18 Discontinued Scripts Nitroglycerin* (Nitroglycerin* SL) 0.4 Mg Tab.subl, 0.4 MG SL Q5MIN PRN for CHEST PAIN, #1 BOTTLE Prov:SHAYY PERRY NP 05/17/18 Allergies Allergies: Coded Allergies: No Known Allergy (Unverified , 08/07/18) PMhx/Soc History of Surgery: Yes (Right eye cataract surgery) Anesthesia Reaction: No Hx Neurological Disorder: Yes (Polio) Hx Respiratory Disorders: No Hx Cardiac Disorders: Yes (Pulmonary HTN, CHF) Hx Psychiatric Problems: No Hx Miscellaneous Medical Probl: Yes (gout) Hx Alcohol Use: Yes (sober since 2011) Hx Substance Use: No Hx Tobacco Use: No Smoking Status: Never smoker FmHx Family History: No diabetes Physical Exam Vitals Vital Signs Date Temp Pulse Resp B/P (MAP) Pulse Ox O2 O2 Flow FiO2 Time Delivery Rate 08/12/18 69 18 154/113 96 Nasal 2.0 07:30 (127) Cannula 08/12/18 97.7 77 18 166/110 95 04:11 (128) Physical Exam General: Well developed, well nourished, no acute distress Head: Normocephalic, atraumatic. Eyes: Pupils equally reactive, EOM intact ENT: Moist mucous membranes Neck: Supple, no lymphadenopathy Respiratory: Lungs clear bilaterally, no distress Cardiovascular: RRR, no murmurs, rubs, or gallops Abdominal: Soft, non-tender, non-distended, no peritoneal signs, negative Escobedo sign : Deferred MSK: No edema, no unilateral swelling Neurologic: Alert and oriented, moving all extremities, normal speech, no focal weakness, no cerebellar signs Skin: No rash Psych: Normal mood Result Diagram: 08/12/18 0543 08/12/18 0543 Results 24 hrs Laboratory Tests Test 08/12/18 05:43 08/12/18 07:42 White Blood Count 8.5 10^3/ul Red Blood Count 5.23 10^6/ul Hemoglobin 11.4 g/dl Hematocrit 37.8 % Mean Corpuscular Volume 72.3 fl Mean Corpuscular Hemoglobin 21.8 pg Mean Corpuscular Hemoglobin Concent 30.2 g/dl Red Cell Distribution Width 17.9 % Platelet Count 194 10^3/UL Mean Platelet Volume 11.1 fl Immature Granulocytes % 0.400 % Neutrophils % 75.2 % Lymphocytes % 14.5 % Monocytes % 7.2 % Eosinophils % 2.0 % Basophils % 0.7 % Nucleated Red Blood Cells % 0.0 /100WBC Immature Granulocytes # 0.030 10^3/ul Neutrophils # 6.4 10^3/ul Lymphocytes # 1.2 10^3/ul Monocytes # 0.6 10^3/ul Eosinophils # 0.2 10^3/ul Basophils # 0.1 10^3/ul Nucleated Red Blood Cells # 0.0 10^3/ul Sodium Level 142 mmol/L Potassium Level 3.8 mmol/L Chloride Level 109 mmol/L Carbon Dioxide Level 20 mmol/L Anion Gap 13 Blood Urea Nitrogen 27 mg/dl Creatinine 1.09 mg/dl Est Glomerular Filtrat Rate mL/min > 60 mL/min Glucose Level 86 mg/dl Calcium Level 9.3 mg/dl Total Bilirubin 0.9 mg/dl Direct Bilirubin 0.00 mg/dl Indirect Bilirubin 0.9 mg/dl Aspartate Amino Transf (AST/SGOT) 26 IU/L Alanine Aminotransferase (ALT/SGPT) 19 IU/L Alkaline Phosphatase 115 IU/L Troponin I 0.038 ng/ml 0.041 ng/ml Total Protein 6.9 g/dl Albumin 3.9 g/dl Globulin 3.00 g/dl Albumin/Globulin Ratio 1.30 Lipase 189 U/L Ethyl Alcohol Level < 10.0 mg/dl Current Medications Medications Dose Sig/Carmen Start Time Status Last (Trade) Ordered Route PRN Stop Time Admin Dose Reason Admin 40 ml ONCE STAT 08/12/18 DC 08/12/18 Miscellaneous PO 05:34 05:57 Medication 08/12/18 05:35 (Gi Cocktail (2)) [place]/ 2 tab ONCE STAT 08/12/18 DC 08/12/18 Phenobarbital PO 05:34 05:57 () 08/12/18 05:35 Procedures/MDM EKG, MONITORS, & DIAGNOSTIC IMAGING: EKG performed at triage EKG: I reviewed and interpreted a 12-lead EKG. Rhythm: Normal sinus rhythm ST Changes: No contiguous ST segment elevations T waves: ST depressions and T wave inversions almost diffusely though very consistent with prior, known baseline Impression: Patient has significantly abnormal EKG but this is unchanged from prior visit and consistent with his baseline LAB INTERPRETATION: I reviewed the laboratory testing and it shows no evidence of acute process However did reveal an indeterminate troponin of 0.038 with a repeat of 0.041 MEDICAL DECISION MAKING: The patient presents with postprandial epigastric and periumbilical abdominal pain very consistent with known history of gastritis and reflux. The patient ran out of his PPI. There is a clear trigger and this is very consistent with likely GI process. Patient does have a known history of cardiac disease, his EKG is consistent with baseline. He states this is not consistent with his anginal equivalent. A troponin would be reasonable but I do not believe this is consistent with acute coronary syndrome. His abdominal exam is benign without concern for obstruction, appendicitis, cholecystitis among others. ER COURSE: * The patient was treated with a GI cocktail with dramatic and significant improvement of his symptoms. * Laboratory testing is unremarkable. No evidence of cardiac ischemia. At this point the patient can be safely discharged. I will refill his prescription of omeprazole. * The patient's initial troponin was indeterminant though did not meet threshold for elevation. Given the patient's EKG and cardiac history a repeat troponin was sent. The difference of 0.038 and 0.041 are likely within the standard of error. However, there is a slight increase. The patient and I had an in- depth conversation regarding these values, and the possibility of this representing acute coronary syndrome. The patient states that his abdominal pain feels very similar to abdominal pain, this is absolutely not consistent with his anginal equivalent. I did offer inpatient hospitalization is the most conservative approach. However based on our conversation, discussing the risk benefits and alternatives the patient would like to go home. He understands strict return precautions that include any worsening symptoms, exertional symptoms or chest pain or pressure. He understands the risks of leaving without further observation including acute coronary syndrome, myocardial infarction and . Patient is making informed decision. CONSULTATION: None DISPOSITION PLAN: The patient does not have an identifiable emergent medical condition that warrants inpatient hospitalization at this time. The patient is deemed safe for discharge with outpatient follow-up. We discussed follow up with the patient's primary care doctor within 24 to 48 hours as needed. We also discussed return to the emergency room for worsening symptoms or worsening condition. Outpatient referral: None required Discharge Medications: Omeprazole 40 mg daily Departure Diagnosis: Primary Impression: Abdominal pain Abdominal location: epigastric Qualified Codes: R10.13 - Epigastric pain Additional Impression: Dyspepsia Condition: Stable MASON SANDOVAL MD Aug 12, 2018 06:45
[2018-08-12] MEDS ORDERED: OMEP40CA6 PO (06:46)
[2018-08-12 08:56] VITALS: BP 156/98; PULSE 71; RESP 18
== END 2018-08-12 08:57 | disposition home or self-care (01) ==
LOC: E/R 04:08
DX: R10.13 Epigastric pain (principal); I11.0 Hypertensive heart disease with heart failure; I50.9 Heart failure, unspecified; Z79.82 Long term (current) use of aspirin
CPT/HCPCS: 36415; 80053; 80307; 83690; 84484; 85025; 93005

== ENCOUNTER 2018-08-22 22:36 | Observation (INO) | payer OTHER ==
[~2018-08-22] VITALS: Ht 167.6 cm; Wt 78.6 kg
[2018-08-23] MEDS ORDERED: ONDANSETRON 4 MG INJ IV STA (01:40)
[2018-08-23] MEDS ORDERED: morphine 2 MG INJ IV STA (02:06)
[2018-08-23] MEDS ORDERED: hydrALAzine 20 MG INJ IV ONE (02:30)
--- NOTE | 2018-08-23 03:36 | ERD ---
ER Documentation Chief Complaint Chief Complaint dizzy w/epigastric pain today; hx CHF,HTN HPI This is a very pleasant 58 female complains of dizziness with epigastric pain today. Patient has history of CHF and hypertension along with primary pulmonary hypertension. He said he had a syncopal episode as well as by family. Denies any other current complaints. ROS All systems reviewed and are negative except as per history of present illness. Medications Home Meds Active Scripts Omeprazole* (Omeprazole*) 40 Mg Capsule.dr, 40 MG PO DAILY for 30 Days, CAP 2 Refills Prov:MASON SANDOVAL MD 08/12/18 Sildenafil Citrate* (Revatio*) 20 Mg Tab, 10 MG PO TID, #45 TAB Prov:ROGERS QUINTANA 06/25/18 Spironolactone* (Aldactone*) 25 Mg Tablet, 25 MG PO DAILY, #30 TAB Prov:SHAYY PERRY NP 05/17/18 Reported Medications Hydralazine Hcl* (Apresoline*) 50 Mg Tab, 50 MG PO TID TAKE 1 TABLET BY MOUTH THREE TIMES A DAY; 08/07/18 Indomethacin* (Indocin*) 50 Mg Cap, 1 CAP ORAL DAILY 06/30/18 Allopurinol* (Allopurinol*) 100 Mg Tablet, 100 MG PO DAILY, TAB 05/15/18 Aspirin* (Aspirin* EC) 81 Mg Tablet.dr, 81 MG PO DAILY, TAB 05/15/18 Furosemide* (Furosemide*) 20 Mg Tablet, 20 MG PO BID, #30 TAB 05/15/18 Atorvastatin Calcium* (Atorvastatin Calcium*) 20 Mg Tablet, 20 MG PO QHS, #30 TAB 05/15/18 Discontinued Reported Medications Omeprazole* (Omeprazole*) 40 Mg Capsule.dr, 40 MG PO DAILY, #30 CAP 05/15/18 Allergies Allergies: Coded Allergies: No Known Allergy (Unverified , 08/23/18) PMhx/Soc History of Surgery: Yes (Right eye cataract surgery) Anesthesia Reaction: No Hx Neurological Disorder: Yes (Polio) Hx Respiratory Disorders: No Hx Cardiac Disorders: Yes (Pulmonary HTN, CHF) Hx Psychiatric Problems: No Hx Miscellaneous Medical Probl: Yes (gout) Hx Alcohol Use: Yes (sober since 2011) Hx Substance Use: No Hx Tobacco Use: No Smoking Status: Never smoker Physical Exam Vitals Vital Signs Date Temp Pulse Resp B/P (MAP) Pulse Ox O2 O2 Flow FiO2 Time Delivery Rate 08/23/18 85 16 153/116 95 Nasal 3.0 01:30 (128) Cannula 08/22/18 97.9 74 18 163/111 95 22:54 (128) Physical Exam Const: No acute distress Head: Atraumatic Eyes: Normal Conjunctiva ENT: Normal External Ears, Nose and Mouth. Neck: Full range of motion. No meningismus. Resp: Clear to auscultation bilaterally Cardio: Regular rate and rhythm, no murmurs Abd: Soft, non tender, non distended. Normal bowel sounds Skin: No petechiae or rashes Back: No midline or flank tenderness Ext: No cyanosis, or edema Neur: Awake and alert Psych: Normal Mood and Affect Result Diagram: 08/23/1814408/23/18 014 Results 24 hrs Laboratory Tests Test 08/23/18 01:45 White Blood Count 7.0 10^3/ul Red Blood Count 6.28 10^6/ul Hemoglobin 13.3 g/dl Hematocrit 45.0 % Mean Corpuscular Volume 71.7 fl Mean Corpuscular Hemoglobin 21.2 pg Mean Corpuscular Hemoglobin Concent 29.6 g/dl Red Cell Distribution Width 19.5 % Platelet Count 245 10^3/UL Mean Platelet Volume 10.6 fl Immature Granulocytes % 0.100 % Neutrophils % 73.5 % Lymphocytes % 19.1 % Monocytes % 6.3 % Eosinophils % 0.6 % Basophils % 0.4 % Nucleated Red Blood Cells % 0.3 /100WBC Immature Granulocytes # 0.010 10^3/ul Neutrophils # 5.1 10^3/ul Lymphocytes # 1.3 10^3/ul Monocytes # 0.4 10^3/ul Eosinophils # 0.0 10^3/ul Basophils # 0.0 10^3/ul Nucleated Red Blood Cells # 0.0 10^3/ul Prothrombin Time 15.0 Sec Prothrombin Time Ratio 1.2 INR International Normalized Ratio 1.17 Activated Partial Thromboplast Time 31.7 Sec Sodium Level 143 mmol/L Potassium Level 4.2 mmol/L Chloride Level 109 mmol/L Carbon Dioxide Level 19 mmol/L Anion Gap 15 Blood Urea Nitrogen 23 mg/dl Creatinine 1.12 mg/dl Est Glomerular Filtrat Rate mL/min > 60 mL/min Glucose Level 98 mg/dl Calcium Level 10.4 mg/dl Troponin I 0.045 ng/ml B-Type Natriuretic Peptide 4190 PG/ML Current Medications Medications Dose Sig/Carmen Start Time Status Last (Trade) Ordered Route PRN Stop Time Admin Dose Reason Admin Ondansetron 4 mg ONCE STAT 08/23/18 DC 08/23/18 HCl (Zofran IV 01:40 01:58 Inj) 08/23/18 01:41 Hydralazine 10 mg ONCE ONCE 08/23/18 DC 08/23/18 HCl IV 02:30 02:17 (Apresoline) 08/23/18 02:31 Morphine 2 mg ONCE STAT 08/23/18 DC 08/23/18 Sulfate IV 02:06 02:17 (morphine) 08/23/18 02:08 Procedures/MDM EKG: Rate/Rhythm: [Normal Sinus Rhythm] QRS, ST, T-waves: [No changes consistent w/ acute ischemia] Impression: [No evidence of ischemia or arrhythmia] Chest X-ray 1V Interpreted by me: Soft Tissue: No acute abnormalities Bones: No acute abnormalities Mediastinum/Cardiac Silhouette/Lungs: [No acute abnormalities] Medical decision making: Patient with significant history who has syncopal episode. Patient will need to be admitted further evaluation management. Dr. Miller made aware. Departure Diagnosis: Primary Impression: Dizziness Condition: Stable KEATON LAKHANI Aug 23, 2018 03:36
[2018-08-23] MEDS ORDERED: ONDANSETRON 4 MG INJ IV PRN ×2 (04:00→04:30)
[2018-08-23] MEDS ORDERED: ACETAMINOPHEN 325 MG TAB PO PRN ×2 (04:00→04:30)
[2018-08-23] MEDS ORDERED: DOCUSATE SODIUM 100 MG CAP PO PRN (04:30)
[2018-08-23] MEDS ORDERED: NACL 0.9% 3 ML SYG IV SCH (04:30)
[2018-08-23] MEDS ORDERED: BISACODYL (EC) 5 MG TAB PO PRN (04:30)
[2018-08-23] MEDS: PANTOPRAZOLE (EC) 40 MG TAB PO SCH (05:17)
[2018-08-23] MEDS: ASPIRIN (EC) 81 MG TAB PO SCH (08:50)
[2018-08-23] MEDS: SILDENAFIL 20 MG TAB PO SCH ×3 (08:50→20:48)
[2018-08-23] MEDS ORDERED: NON-FORMULARY/PATIENT OWN MED (Omeprazole* 40 MG) PO SCH (09:00)
--- NOTE | 2018-08-23 11:54 | HP ---
Date/Time of Note Date/Time of Note DATE: 08/23/18 TIME: 11:54 Assessment/Plan VTE Prophylaxis Pharmacological prophylaxis: LMWH Lines/Catheters IV [facility] Assessment/Plan Hospital Course 58-year-old male with comorbidities including diastolic heart failure, hypertension, dyslipidemia, gout, and severe pulmonary hypertension who is presenting with multiple episodes of dizziness, who will be admitted to inpatient setting for further treatment and evaluation. 1. Reported dizziness. Etiology unclear. Brain CT scan and carotid Doppler study negative. Possibly secondary to medication side effects. Obtain orthostatic vital signs. Continuous telemetry monitoring to evaluate for any cardiac arrhythmias. Obtain cardiology consult. 2. Diastolic heart failure. No evidence of any exacerbation. Hold diuretics since the patient is complaining of multiple episodes of dizziness. 3. Severe pulmonary hypertension. PA systolic pressure 120 mmHg as per 2D echocardiogram. Continue phosphodiesterase inhibitors. 4. Hypertension. Resume antihypertensives. 5. Gout. Resume allopurinol. Plan: The patient will be admitted to inpatient telemetry floor. The patient will be started on a low-cholesterol diet. The patient will be started on DVT prophylaxis. The patient will remain a full code. Activities will be with assist as tolerated. The rest of the patient's management will be based on the clinical course, inputs from consultants, and the results of diagnostic studies. Based on the patient's clinical presentation, he most probably requires at least 2 midnights' stay for further management and evaluation of his clinical presentation. The patient was seen in collaboration with Dr. Trejo. Result Diagram: 08/23/18 0145 08/23/18 0145 Results 24hrs Laboratory Tests Test 08/23/18 01:45 White Blood Count 7.0 Red Blood Count 6.28 #H Hemoglobin 13.3 L Hematocrit 45.0 Mean Corpuscular Volume 71.7 L Mean Corpuscular Hemoglobin 21.2 L Mean Corpuscular Hemoglobin Concent 29.6 L Red Cell Distribution Width 19.5 H Platelet Count 245 # Mean Platelet Volume 10.6 H Immature Granulocytes % 0.100 Neutrophils % 73.5 Lymphocytes % 19.1 Monocytes % 6.3 Eosinophils % 0.6 Basophils % 0.4 Nucleated Red Blood Cells % 0.3 H Immature Granulocytes # 0.010 Neutrophils # 5.1 Lymphocytes # 1.3 Monocytes # 0.4 Eosinophils # 0.0 Basophils # 0.0 Nucleated Red Blood Cells # 0.0 Prothrombin Time 15.0 H Prothrombin Time Ratio 1.2 INR International Normalized Ratio 1.17 Activated Partial Thromboplast Time 31.7 Sodium Level 143 Potassium Level 4.2 Chloride Level 109 Carbon Dioxide Level 19 L Anion Gap 15 H Blood Urea Nitrogen 23 H Creatinine 1.12 Est Glomerular Filtrat Rate mL/min > 60 Glucose Level 98 Calcium Level 10.4 H Troponin I 0.045 B-Type Natriuretic Peptide 4190 H HPI/ROS Admit Date/Time Admit Date/Time Hx of Present Illness Reason for admission: Dizziness. Consultants 1. Goran Haley DO, Cardiology. This is a 58-year-old male with past medical history of hypertension, dyslipidemia, diastolic heart failure, gout, and severe pulmonary hypertension. The patient follows up with outpatient cardiology (Dr. Mcdowell) and pulmonology. The patient is on Revatio. The patient verbalized that his Revatio was changed recently and is waiting for authorization to be started on a "new pill." The patient has been feeling dizzy since his Revatio dosing has been increased to 3 times a day. For the last 1 week or so, his dizziness has been getting worse to the point where he is afraid to get up and walk. The patient denied any spinning sensation of the room. He denied any headache. He denied any chest pain or palpitations. He is dependent on oxygen chronically. He was complaining of dyspnea with minimal exertion. He denied any fevers, chills, or cough. He denied any syncope or presyncope. In the emergency room, the patient's brain CT scan was negative for any acute findings. Carotid Doppler study was negative for any hemodynamically significant stenosis. ROS Constitutional: no complaints Eyes: no complaints ENT: no complaints Respiratory: shortness of breath Cardiovascular: orthopenea Gastrointestinal: no complaints Genitourinary: no complaints Musculoskeletal: no complaints Skin: no complaints Neurologic: dizziness Endocrine: no complaints Lymphatic: no complaints Psychological: no complaints Immunologic: no complaints PMH/Family/Social Past Medical History 1. Hypertension. 2. Dyslipidemia. 3. Diastolic heart failure. 4. Severe pulmonary hypertension. 5. Poliomyelitis with RLE weakness. 6. Gout. Medications Current Medications Ondansetron HCl (Zofran Inj) 4 mg ER BRIDGE PRN IV NAUSEA/VOMITING; Start 08/23/18 at 04:00; Stop 08/24/18 at 03:59 Acetaminophen (Tylenol Tab) 650 mg ER BRIDGE PRN PO .MILD PAIN 1-3 OR TEMP; Start 08/23/18 at 04:00; Stop 08/24/18 at 03:59 Aspirin (Halfprin) 81 mg DAILY PO Last administered on 08/23/18at 08:50; Admin Dose 81 MG; Start 08/23/18 at 09:00 Atorvastatin Calcium (Lipitor) 20 mg QHS PO ; Start 08/23/18 at 21:00 Sildenafil Citrate (Revatio) 10 mg TID PO Last administered on 08/23/18at 08:50; Admin Dose 10 MG; Start 08/23/18 at 09:00 Hydralazine HCl (Apresoline) 50 mg TID PO ; Start 08/23/18 at 09:00 IV Flush (NS 3 ml) 3 ml PER PROTOCOL IV ; Start 08/23/18 at 04:30 Ondansetron HCl (Zofran Inj) 4 mg Q6H PRN IV NAUSEA/VOMITING; Start 08/23/18 at 04:30 Acetaminophen (Tylenol Tab) 650 mg Q6H PRN PO .PAIN 1-3 OR TEMP; Start 08/23/18 at 04:30 Docusate Sodium (Colace) 100 mg Q12H PRN PO .CONSTIPATION; Start 08/23/18 at 04:30 Bisacodyl (Dulcolax) 5 mg DAILY PRN PO .CONSTIPATION; Start 08/23/18 at 04:30 Pantoprazole (Protonix Tab) 40 mg DAILY@06 PO Last administered on 08/23/18at 05:17; Admin Dose 40 MG; Start 08/23/18 at 06:00 Coded Allergies: No Known Allergy (Unverified , 08/23/18) Past Surgical History Past Surgical Hx: no surgical history Family History Significant Family History: no pertinent family hx Social History Lives at home with family. Alcohol Use: none Smoking Status: Never smoker Drug Use: none Exam/Review of Systems Vital Signs Vitals Vital Signs Date Temp Pulse Resp B/P (MAP) Pulse Ox O2 O2 Flow FiO2 Time Delivery Rate 08/23/18 74 20 113/86 93 Nasal 3.0 09:37 (95) Cannula 08/22/18 97.9 22:54 Exam Exam General: Adequately build 58 year-old male lying in bed in no apparent distress. HEENT: Normocephalic, atraumatic. Eyes: Anicteric sclerae, conjunctivae clear. ENT: Nasal septum midline, oral mucosa moist. Neck supple. Respiratory: Bilaterally diminished breath sounds. No use of accessory muscles of respiration. No adventitious breath sounds. Cardiovascular: S1, S2 heard. Regular rate and rhythm Abdomen: Soft, nontender, and nondistended. Bowel sounds positive in all 4 quadrants. Genitourinary: Deferred. Extremities: No cyanosis, no clubbing. Right lower extremity muscle wasting. LLE trace edema. Neurologic: Cranial nerves II through XII grossly intact. The patient is awake, alert, and oriented. SHAYY PERRY NP Aug 23, 2018 11:54
[2018-08-23 12:59] VITALS: Ht 167.6 cm; Wt 78.6 kg
[2018-08-23 13:18] VITALS: BP 104/75; PULSE 80; RESP 20
[2018-08-23 13:24] VITALS: BP 110/70; PULSE 85; RESP 20
[2018-08-23 13:25] VITALS: BP 121/80; PULSE 80
[2018-08-23 15:00] VITALS: BP 106/64; PULSE 77; RESP 19
--- NOTE | 2018-08-23 15:39 | CONS ---
Assessment/Plan Assessment/Plan Hospital Course (Demo Recall) Dizziness and lightheadedness Labile blood pressure Chronic left ventricular systolic dysfunction Severe pulmonary hypertension Severe tricuspid valve regurgitation Dyslipidemia Polymyositis Patient presents with symptoms of lightheadedness and dizziness. Blood pressure has been labile. He has had his diuretics and his sildenafil dose being titrated Would adjust sildenafil to twice daily dosing Would adjust hydralazine to twice daily dosing Patient appears near euvolemic, would continue maintenance Lasix at 20 mg p.o. daily Consultation Date/Type/Reason Admit Date/Time Type of Consult Cardiology Reason for Consultation Dizziness Date/Time of Note DATE: 08/23/18 TIME: 15:32 Hx of Present Illness This is a 58-year-old male with past medical history of pulmonary hypertension, congestive heart failure who presents with dizziness. Patient and daughter state that blood pressure has been labile over the past few months with medication changes. Patient did have a right heart catheterization and was approved for a new pulmonary hypertension medication which she is to start tomorrow. They have noticed that with sildenafil, his blood pressure has been more labile. Have been adjusting the dosing with half a tablet at midday and full tablet in the morning and evening which is helped somewhat but still with dizziness. Over the past few days, patient with increased dizziness with sitting up. At times he feels shortness of breath. He denies any chest pain, does have intermittent palpitations when he feels dizzy. 12 point review of systems was performed with all pertinent positives and negatives mentioned above and all else is negative Past Medical History Pulmonary hypertension Medical History: congestive heart failure Home Meds Active Scripts Omeprazole* (Omeprazole*) 40 Mg Capsule.dr, 40 MG PO DAILY for 30 Days, CAP 2 Refills Prov:MASON SANDOVAL MD 08/12/18 Sildenafil Citrate* (Revatio*) 20 Mg Tab, 10 MG PO TID, #45 TAB Prov:ROGERS QUINTANA 06/25/18 Spironolactone* (Aldactone*) 25 Mg Tablet, 25 MG PO DAILY, #30 TAB Prov:SHAYY PERRY NP 05/17/18 Reported Medications Hydralazine Hcl* (Apresoline*) 50 Mg Tab, 50 MG PO TID TAKE 1 TABLET BY MOUTH THREE TIMES A DAY; 08/07/18 Indomethacin* (Indocin*) 50 Mg Cap, 1 CAP ORAL DAILY 06/30/18 Allopurinol* (Allopurinol*) 100 Mg Tablet, 100 MG PO DAILY, TAB 05/15/18 Aspirin* (Aspirin* EC) 81 Mg Tablet.dr, 81 MG PO DAILY, TAB 05/15/18 Furosemide* (Furosemide*) 20 Mg Tablet, 20 MG PO BID, #30 TAB 05/15/18 Atorvastatin Calcium* (Atorvastatin Calcium*) 20 Mg Tablet, 20 MG PO QHS, #30 TAB 05/15/18 Discontinued Reported Medications Omeprazole* (Omeprazole*) 40 Mg Capsule.dr, 40 MG PO DAILY, #30 CAP 05/15/18 Medications Current Medications Ondansetron HCl (Zofran Inj) 4 mg ER BRIDGE PRN IV NAUSEA/VOMITING; Start 08/23/18 at 04:00; Stop 08/24/18 at 03:59 Acetaminophen (Tylenol Tab) 650 mg ER BRIDGE PRN PO .MILD PAIN 1-3 OR TEMP; Start 08/23/18 at 04:00; Stop 08/24/18 at 03:59 Aspirin (Halfprin) 81 mg DAILY PO Last administered on 08/23/18at 08:50; Admin Dose 81 MG; Start 08/23/18 at 09:00 Atorvastatin Calcium (Lipitor) 20 mg QHS PO ; Start 08/23/18 at 21:00 Sildenafil Citrate (Revatio) 10 mg TID PO Last administered on 08/23/18at 14:31; Admin Dose 10 MG; Start 08/23/18 at 09:00 Hydralazine HCl (Apresoline) 50 mg TID PO Last administered on 08/23/18at 13:42; Admin Dose 50 MG; Start 08/23/18 at 09:00 IV Flush (NS 3 ml) 3 ml PER PROTOCOL IV ; Start 08/23/18 at 04:30 Ondansetron HCl (Zofran Inj) 4 mg Q6H PRN IV NAUSEA/VOMITING; Start 08/23/18 at 04:30 Acetaminophen (Tylenol Tab) 650 mg Q6H PRN PO .PAIN 1-3 OR TEMP; Start 08/23/18 at 04:30 Docusate Sodium (Colace) 100 mg Q12H PRN PO .CONSTIPATION; Start 08/23/18 at 04:30 Bisacodyl (Dulcolax) 5 mg DAILY PRN PO .CONSTIPATION; Start 08/23/18 at 04:30 Pantoprazole (Protonix Tab) 40 mg DAILY@06 PO Last administered on 08/23/18at 05:17; Admin Dose 40 MG; Start 08/23/18 at 06:00 Enoxaparin Sodium (Lovenox) 40 mg DAILY SC ; Start 08/24/18 at 09:00 Allergies: Coded Allergies: No Known Allergy (Unverified , 08/23/18) Past Surgical History Past Surgical Hx: no surgical history Social History Alcohol Use: none Smoking Status: Former smoker Drug Use: none Exam/Review of Systems Vital Signs Vitals Vital Signs Date Temp Pulse Resp B/P (MAP) Pulse Ox O2 O2 Flow FiO2 Time Delivery Rate 08/23/18 97.9 77 19 106/64 94 Nasal 15:00 (78) Cannula 08/23/18 3.0 11:58 Exam Constitutional: alert, oriented (No apparent distress) Head: normocephalic Respiratory: other (Coarse breath sounds bilaterally, no wheezing) Cardiovascular: regular rate and rhythm, systolic murmur (S1-S2 heard) Gastrointestinal: soft, non-tender, bowel sounds Extremities: edema Labs Result Diagram: 08/23/18 0145 08/23/18 0145 Results 24hrs Laboratory Tests Test 08/23/18 01:45 White Blood Count 7.0 Red Blood Count 6.28 #H Hemoglobin 13.3 L Hematocrit 45.0 Mean Corpuscular Volume 71.7 L Mean Corpuscular Hemoglobin 21.2 L Mean Corpuscular Hemoglobin Concent 29.6 L Red Cell Distribution Width 19.5 H Platelet Count 245 # Mean Platelet Volume 10.6 H Immature Granulocytes % 0.100 Neutrophils % 73.5 Lymphocytes % 19.1 Monocytes % 6.3 Eosinophils % 0.6 Basophils % 0.4 Nucleated Red Blood Cells % 0.3 H Immature Granulocytes # 0.010 Neutrophils # 5.1 Lymphocytes # 1.3 Monocytes # 0.4 Eosinophils # 0.0 Basophils # 0.0 Nucleated Red Blood Cells # 0.0 Prothrombin Time 15.0 H Prothrombin Time Ratio 1.2 INR International Normalized Ratio 1.17 Activated Partial Thromboplast Time 31.7 Sodium Level 143 Potassium Level 4.2 Chloride Level 109 Carbon Dioxide Level 19 L Anion Gap 15 H Blood Urea Nitrogen 23 H Creatinine 1.12 Est Glomerular Filtrat Rate mL/min > 60 Glucose Level 98 Calcium Level 10.4 H Troponin I 0.045 B-Type Natriuretic Peptide 4190 H Medications Medications Current Medications Ondansetron HCl (Zofran Inj) 4 mg ER BRIDGE PRN IV NAUSEA/VOMITING; Start 08/23/18 at 04:00; Stop 08/24/18 at 03:59 Acetaminophen (Tylenol Tab) 650 mg ER BRIDGE PRN PO .MILD PAIN 1-3 OR TEMP; Start 08/23/18 at 04:00; Stop 08/24/18 at 03:59 Aspirin (Halfprin) 81 mg DAILY PO Last administered on 08/23/18at 08:50; Admin Dose 81 MG; Start 08/23/18 at 09:00 Atorvastatin Calcium (Lipitor) 20 mg QHS PO ; Start 08/23/18 at 21:00 Sildenafil Citrate (Revatio) 10 mg TID PO Last administered on 08/23/18at 14:31; Admin Dose 10 MG; Start 08/23/18 at 09:00 Hydralazine HCl (Apresoline) 50 mg TID PO Last administered on 08/23/18at 13:42; Admin Dose 50 MG; Start 08/23/18 at 09:00 IV Flush (NS 3 ml) 3 ml PER PROTOCOL IV ; Start 08/23/18 at 04:30 Ondansetron HCl (Zofran Inj) 4 mg Q6H PRN IV NAUSEA/VOMITING; Start 08/23/18 at 04:30 Acetaminophen (Tylenol Tab) 650 mg Q6H PRN PO .PAIN 1-3 OR TEMP; Start 08/23/18 at 04:30 Docusate Sodium (Colace) 100 mg Q12H PRN PO .CONSTIPATION; Start 08/23/18 at 04:30 Bisacodyl (Dulcolax) 5 mg DAILY PRN PO .CONSTIPATION; Start 08/23/18 at 04:30 Pantoprazole (Protonix Tab) 40 mg DAILY@06 PO Last administered on 08/23/18at 05:17; Admin Dose 40 MG; Start 08/23/18 at 06:00 Enoxaparin Sodium (Lovenox) 40 mg DAILY SC ; Start 08/24/18 at 09:00 Goran Haley DO Aug 23, 2018 15:39
[2018-08-23 20:00] VITALS: BP 105/70; PULSE 85; RESP 20
[2018-08-23] MEDS: ATORVASTATIN 20 MG TAB PO SCH (20:48)
[2018-08-24] VITALS (8 sets, daily range): BP systolic 103–137; BP diastolic 74–87; PULSE 55–90; RESP 17–19
[2018-08-24] MEDS: PANTOPRAZOLE (EC) 40 MG TAB PO SCH (05:16)
[2018-08-24] MEDS: ASPIRIN (EC) 81 MG TAB PO SCH (08:22)
[2018-08-24] MEDS: SILDENAFIL 20 MG TAB PO SCH ×2 (08:24→21:38)
[2018-08-24] MEDS ORDERED: FUROSEMIDE 20 MG TAB PO SCH (09:00)
[2018-08-24] MEDS ORDERED: ENOXAPARIN 40 MG/0.4 ML SYG SC SCH (09:00)
[2018-08-24] MEDS ORDERED: HYDR-3672 PO (11:08)
[2018-08-24] MEDS ORDERED: LAS20 PO (11:08)
[2018-08-24] MEDS ORDERED: SILD20TA13 PO (11:08)
--- NOTE | 2018-08-24 11:09 | PDOCDIS ---
Discharge Instructions CONDITION [id number] Patient Condition: [id number] Stable ACTIVITY: [id number] Activity Restrictions: [id number] Slowly Increase Activity Rest between Activity REFERRALS Other Referrals 1. Start taking decreased dose of the following medications: A) Sildenafil (Revatio) 10 mg p.o. twice daily. B) Lasix 20 mg p.o. once daily. C) Hydralazine 50 mg p.o. twice daily. D) Stop taking Aldactone. 2. Take a low-cholesterol diet as tolerated. 3. Resume activities as tolerated. Rest in between activities. 4. Follow-up with outpatient pulmonology and cardiology as scheduled. 5. Please go to the nearest emergency room if you have significant shortness of breath, chest pain, frequent dizzy spells, or any other unusual signs/symptoms. SHYAY PERRY NP Aug 24, 2018 11:09
--- NOTE | 2018-08-24 11:21 | DS ---
Date/Time of Note Date/Time of Note DATE: 08/24/18 TIME: 11:17 Discharge Summary Admission/Discharge Info Admit Date/Time Aug 23, 2018 at 03:34 Discharge Date/Time Discharge Diagnosis 1. Frequent dizziness spells. 2. Diastolic heart failure. 3. Severe pulmonary hypertension, on continuous supplemental oxygen at home. PA systolic pressure 120 mmHg as per 2D echocardiogram. 4. Hypertension. 5. Gout. 6. History of poliomyelitis as a child with chronic right lower extremity weakness. Patient Condition: Stable Consults 1. Goran Haley DO, Cardiology. Procedures Brain CT IMPRESSION: 1. Mild to moderate generalized cerebral and cerebellar volume loss. 2. Mild nonspecific chronic microvascular ischemic disease. 3. Negative intracranial masses hemorrhages midline shift. 2. Posterior superior right frontal 5 mm calcification consistent with sequela of previous inflammatory disease such as cysticercosis or possibly trauma. Carotid Doppler Study IMPRESSION: 1. There is no evidence for a hemodynamically significant stenosis within the carotid bifurcation regions bilaterally. 2. Antegrade flow within the vertebral arteries bilaterally. CXR IMPRESSION: 1. Moderate cardiomegaly without congestive heart failure or pneumonia. 2. Pulmonary arterial hypertension. Hx of Present Illness Reason for admission: Dizziness. Consultants 1. Goran Haley DO, Cardiology. This is a 58-year-old male with past medical history of hypertension, dyslipidemia, diastolic heart failure, gout, and severe pulmonary hypertension. The patient follows up with outpatient cardiology (Dr. Mcdowell) and pulmonology. The patient is on Revatio. The patient verbalized that his Revatio was changed recently and is waiting for authorization to be started on a "new pill." The patient has been feeling dizzy since his Revatio dosing has been increased to 3 times a day. For the last 1 week or so, his dizziness has been getting worse to the point where he is afraid to get up and walk. The patient denied any spinning sensation of the room. He denied any headache. He denied any chest pain or palpitations. He is dependent on oxygen chronically. He was complaining of dyspnea with minimal exertion. He denied any fevers, chills, or cough. He denied any syncope or presyncope. In the emergency room, the patient's brain CT scan was negative for any acute findings. Carotid Doppler study was negative for any hemodynamically significant stenosis. Hospital Course The patient was admitted to inpatient setting. A cardiology consult was obtained. Etiology of the patient's reported dizziness was extensively evaluated. The patient's brain CT scan was negative for any acute intracranial findings. The patient's carotid Doppler study was negative for any hemodynamically significant stenosis. Orthostatic vital signs were ordered. However, this was not done by nursing because of unclear reasons. Nevertheless, the patient's dizziness improved and was resolved by adjusting the patient's medications. The patient's frequent dizzy spells could have been most probably from overmedication. The patient's sildenafil was decreased to twice daily. The patient's Lasix was decreased to once daily. The patient's hydralazine was decreased to twice daily. The patient's Aldactone was put on hold. Physical therapy evaluation was also ordered. PT evaluated the patient and cleared the patient to be discharged home. The patient has a history of severe pulmonary hypertension. The patient is on Revatio as mentioned earlier. The patient is also on continuous supplemental oxygen at home. Therefore, the patient was maintained on supplemental oxygen. He has a history of underlying hypertension. He was maintained on antihypertensives. The patient's antihypertensives were adjusted as mentioned earlier. The patient has a history of gout. The patient was maintained on allopurinol. The patient's uric acid levels were within normal limits. The patient has a history of poliomyelitis as a child and he has a chronic right lower extremity weakness. The patient had a stable hospital course. The patient's dizziness has almost resolved. The patient has good outpatient follow-up with a reliability technologist and forestry aide. Therefore, the patient will be discharged home on the new dosing strategy for antihypertensives, diuretics, and phosphodiesterase inhibitors. Discharge Instructions 1. Start taking decreased dose of the following medications: A) Sildenafil (Revatio) 10 mg p.o. twice daily. B) Lasix 20 mg p.o. once daily. C) Hydralazine 50 mg p.o. twice daily. D) Stop taking Aldactone. 2. Take a low-cholesterol diet as tolerated. 3. Resume activities as tolerated. Rest in between activities. 4. Follow-up with outpatient pulmonology and cardiology as scheduled. 5. Please go to the nearest emergency room if you have significant shortness of breath, chest pain, frequent dizzy spells, or any other unusual signs/symptoms. The patient verbalized understanding of his discharge instructions. At this time I would like to thank Dr. Haley for seeing the patient and providing clinical recommendations. The patient was seen in collaboration with Dr. Trejo. Home Meds Active Scripts Omeprazole* (Omeprazole*) 40 Mg Capsule.dr, 40 MG PO DAILY for 30 Days, CAP 2 Refills Prov:MASON SANDOVAL MD 08/12/18 Sildenafil Citrate* (Revatio*) 20 Mg Tab, 10 MG PO TID, #45 TAB Prov:ROGERS QUINTANA 06/25/18 Spironolactone* (Aldactone*) 25 Mg Tablet, 25 MG PO DAILY, #30 TAB Prov:SHAYY PERRY NP 05/17/18 Reported Medications Hydralazine Hcl* (Apresoline*) 50 Mg Tab, 50 MG PO TID TAKE 1 TABLET BY MOUTH THREE TIMES A DAY; 08/07/18 Indomethacin* (Indocin*) 50 Mg Cap, 1 CAP ORAL DAILY 06/30/18 Allopurinol* (Allopurinol*) 100 Mg Tablet, 100 MG PO DAILY, TAB 05/15/18 Aspirin* (Aspirin* EC) 81 Mg Tablet.dr, 81 MG PO DAILY, TAB 05/15/18 Furosemide* (Furosemide*) 20 Mg Tablet, 20 MG PO BID, #30 TAB 05/15/18 Atorvastatin Calcium* (Atorvastatin Calcium*) 20 Mg Tablet, 20 MG PO QHS, #30 TAB 05/15/18 Discontinued Reported Medications Omeprazole* (Omeprazole*) 40 Mg Capsule.dr, 40 MG PO DAILY, #30 CAP 05/15/18 Follow-up Plan The patient to follow-up with his forestry aide and reliability technologist as scheduled. Primary Care Provider Not On Staff Doctor Time spent on discharge: > 30 minutes Pending Labs Laboratory Tests Test 08/24/18 04:42 White Blood Count 5.3 10^3/ul (4.8-10.8) Red Blood Count 5.15 10^6/ul (4.70-6.10) Hemoglobin 10.9 g/dl (14.0-18.0) Hematocrit 37.1 % (42.0-52.0) Mean Corpuscular Volume 72.0 fl (82.0-101.0) Mean Corpuscular Hemoglobin 21.2 pg (29.0-33.0) Mean Corpuscular Hemoglobin Concent 29.4 g/dl (32.0-37.0) Red Cell Distribution Width 18.8 % (11.5-14.5) Platelet Count 212 10^3/UL (140-415) Mean Platelet Volume 10.8 fl (7.4-10.4) Immature Granulocytes % 0.400 % (0.001-0.429) Neutrophils % 67.2 % (39.0-77.0) Lymphocytes % 22.0 % (15.0-51.0) Monocytes % 7.9 % (0.0-11.0) Eosinophils % 1.7 % (0.0-7.0) Basophils % 0.8 % (0.0-2.0) Nucleated Red Blood Cells % 0.0 /100WBC (0.0-0.0) Immature Granulocytes # 0.020 10^3/ul (0.0-0.031) Neutrophils # 3.6 10^3/ul (1.6-7.5) Lymphocytes # 1.2 10^3/ul (0.8-2.9) Monocytes # 0.4 10^3/ul (0.3-0.9) Eosinophils # 0.1 10^3/ul (0.0-0.5) Basophils # 0.0 10^3/ul (0.0-0.1) Nucleated Red Blood Cells # 0.0 10^3/ul (0.0-0.0) Sodium Level 139 mmol/L (135-144) Potassium Level 4.5 mmol/L (3.5-5.1) Chloride Level 108 mmol/L (97-110) Carbon Dioxide Level 23 mmol/L (21-31) Anion Gap 8 (5-13) Blood Urea Nitrogen 29 mg/dl (7-20) Creatinine 1.05 mg/dl (0.61-1.24) Est Glomerular Filtrat Rate mL/min > 60 mL/min (>60) Glucose Level 78 mg/dl (70-220) Hemoglobin A1c 5.6 % (0-5.9) Uric Acid 7.1 mg/dl (3.1-7.9) Calcium Level 9.4 mg/dl (8.4-10.2) Magnesium Level 2.0 mg/dl (1.7-2.5) Total Bilirubin 1.1 mg/dl (0.2-1.3) Direct Bilirubin 0.00 mg/dl (0.00-0.20) Indirect Bilirubin 1.1 mg/dl (0-1.1) Aspartate Amino Transf (AST/SGOT) 21 IU/L (15-46) Alanine Aminotransferase (ALT/SGPT) 21 IU/L (13-69) Alkaline Phosphatase 83 IU/L (42-121) B-Type Natriuretic Peptide 3560 PG/ML (0-125) Total Protein 6.1 g/dl (6.1-8.1) Albumin 3.5 g/dl (3.3-4.9) Globulin 2.60 g/dl (1.3-3.2) Albumin/Globulin Ratio 1.34 Triglycerides Level 46 mg/dl (0-149) Cholesterol Level 90 mg/dl (100-200) LDL Cholesterol, Calculated 51 mg/dl HDL Cholesterol 30 mg/dl (30-78) Cholesterol/HDL Ratio 3.0 RATIO Thyroid Stimulating Hormone (TSH) 0.590 MIU/L (0.465-4.680) SHAYY PERRY NP Aug 24, 2018 11:21
--- NOTE | 2018-08-24 12:32 | CONS ---
Assessment/Plan Assessment/Plan Hospital Course (Demo Recall) Dizziness and lightheadedness-resolved Labile blood pressure-improved Chronic left ventricular systolic dysfunction Intermittent junctional rhythm Severe pulmonary hypertension Severe tricuspid valve regurgitation Dyslipidemia Polymyositis Patient with no further dizziness, lightheadedness since adjustments made to sildenafil and hydralazine Telemetry reviewed with occasional junctional rhythm. Patient denies any symptoms during. Patient not on any beta-rommel. Patient appears near euvolemic, would continue maintenance Lasix at 20 mg p.o. daily Follow-up with primary computer engineer and pulmonary hypertension specialist Consultation Date/Type/Reason Admit Date/Time Aug 23, 2018 at 03:34 Initial Consult Date Type of Consult Cardiology Date/Time of Note DATE: 08/24/18 TIME: 12:31 24 HR Interval Summary Free Text/Dictation Feeling much better. No shortness of breath, dizziness, palpitations Exam/Review of Systems Vital Signs Vitals Vital Signs Date Temp Pulse Resp B/P (MAP) Pulse Ox O2 O2 Flow FiO2 Time Delivery Rate 08/24/18 98.6 75 18 132/87 88 11:06 (102) 08/24/18 Nasal 2.0 07:46 Cannula Intake and Output 08/23/18 08/23/18 08/24/18 1515:00 23:00 07:00 IntakeIntake Total 640 ml 250 ml OutputOutput Total 350 ml BalanceBalance 640 ml -100 ml Exam Constitutional: alert, oriented (No apparent distress) Head: normocephalic Respiratory: other (Coarse breath sounds bilaterally, no wheezing) Cardiovascular: regular rate and rhythm (S1-S2 heard), systolic murmur Gastrointestinal: soft, non-tender, bowel sounds Extremities: edema (Trace) Labs Result Diagram: 08/24/18 0442 08/24/18 0442 Results 24hrs Laboratory Tests Test 08/24/18 04:42 White Blood Count 5.3 # Red Blood Count 5.15 Hemoglobin 10.9 L Hematocrit 37.1 L Mean Corpuscular Volume 72.0 L Mean Corpuscular Hemoglobin 21.2 L Mean Corpuscular Hemoglobin Concent 29.4 L Red Cell Distribution Width 18.8 H Platelet Count 212 Mean Platelet Volume 10.8 H Immature Granulocytes % 0.400 Neutrophils % 67.2 Lymphocytes % 22.0 Monocytes % 7.9 Eosinophils % 1.7 Basophils % 0.8 Nucleated Red Blood Cells % 0.0 Immature Granulocytes # 0.020 Neutrophils # 3.6 Lymphocytes # 1.2 Monocytes # 0.4 Eosinophils # 0.1 Basophils # 0.0 Nucleated Red Blood Cells # 0.0 Sodium Level 139 Potassium Level 4.5 Chloride Level 108 Carbon Dioxide Level 23 Anion Gap 8 Blood Urea Nitrogen 29 H Creatinine 1.05 Est Glomerular Filtrat Rate mL/min > 60 Glucose Level 78 Hemoglobin A1c 5.6 Uric Acid 7.1 Calcium Level 9.4 Magnesium Level 2.0 Total Bilirubin 1.1 Direct Bilirubin 0.00 Indirect Bilirubin 1.1 Aspartate Amino Transf (AST/SGOT) 21 Alanine Aminotransferase (ALT/SGPT) 21 Alkaline Phosphatase 83 B-Type Natriuretic Peptide 3560 H Total Protein 6.1 Albumin 3.5 Globulin 2.60 Albumin/Globulin Ratio 1.34 Triglycerides Level 46 Cholesterol Level 90 L LDL Cholesterol, Calculated 51 HDL Cholesterol 30 Cholesterol/HDL Ratio 3.0 Thyroid Stimulating Hormone (TSH) 0.590 Medications Medications Current Medications Aspirin (Halfprin) 81 mg DAILY PO Last administered on 08/24/18at 08:22; Admin Dose 81 MG; Start 08/23/18 at 09:00 Atorvastatin Calcium (Lipitor) 20 mg QHS PO Last administered on 08/23/18at 20:48; Admin Dose 20 MG; Start 08/23/18 at 21:00 IV Flush (NS 3 ml) 3 ml PER PROTOCOL IV ; Start 08/23/18 at 04:30 Ondansetron HCl (Zofran Inj) 4 mg Q6H PRN IV NAUSEA/VOMITING; Start 08/23/18 at 04:30 Acetaminophen (Tylenol Tab) 650 mg Q6H PRN PO .PAIN 1-3 OR TEMP; Start 08/23/18 at 04:30 Docusate Sodium (Colace) 100 mg Q12H PRN PO .CONSTIPATION; Start 08/23/18 at 04:30 Bisacodyl (Dulcolax) 5 mg DAILY PRN PO .CONSTIPATION; Start 08/23/18 at 04:30 Pantoprazole (Protonix Tab) 40 mg DAILY@06 PO Last administered on 08/24/18at 05:16; Admin Dose 40 MG; Start 08/23/18 at 06:00 Enoxaparin Sodium (Lovenox) 40 mg DAILY SC Last administered on 08/24/18at 08:40; Admin Dose 40 MG; Start 08/24/18 at 09:00 Hydralazine HCl (Apresoline) 50 mg BID PO Last administered on 08/24/18at 08:21; Admin Dose 50 MG; Start 08/23/18 at 21:00 Sildenafil Citrate (Revatio) 10 mg BID PO Last administered on 08/24/18 08:24; Admin Dose 10 MG; Start 08/23/18 at 21:00 Furosemide (Lasix) 20 mg DAILY PO Last administered on 08/24/18at 08:22; Admin Dose 20 MG; Start 08/24/18 at 09:00 Goran Haley DO Aug 24, 2018 12:32
[2018-08-24] MEDS: ATORVASTATIN 20 MG TAB PO SCH (21:37)
== END 2018-08-24 22:44 | disposition home or self-care (01) ==
LOC: E/R 22:36 → 6WM 08-23 03:34
PROVIDERS: ADMIT Family Medicine; ATTEND Family Medicine
DX: R42 Dizziness and giddiness (principal); I11.0 Hypertensive heart disease with heart failure; I50.30 Unspecified diastolic (congestive) heart failure; M10.9 Gout, unspecified; I27.20 Pulmonary hypertension, unspecified; Z99.81 Dependence on supplemental oxygen; Z86.12 Personal history of poliomyelitis; Z79.82 Long term (current) use of aspirin; E78.5 Hyperlipidemia, unspecified; I07.1 Rheumatic tricuspid insufficiency
CPT/HCPCS: 36415; 70450; 71045; 80048; 80053; 80061; 83036; 83735; 83880; 84443; 84484; 84560; 85025; 85610; 85730; 93005; 93880; 96374; 96375; 97161; 99285; G0378; J0360; J1650; J2270; J2405

== ENCOUNTER 2018-08-26 02:05 | Emergency (ER) | payer OTHER ==
[~2018-08-26] VITALS: Ht 165.1 cm; Wt 71.0 kg
[~2018-08-26 02:05] MED LIST changes: +LAS20 PO
[2018-08-26 02:09] VITALS: Ht 165.1 cm; Wt 71.0 kg
--- NOTE | 2018-08-26 04:02 | ERD ---
ER Documentation Chief Complaint Chief Complaint bib self, cc: chest pain and head ache due to high blood pressure HPI This is a 58-year-old male who was discharged from this hospital yesterday evening for dizziness, pulmonary hypertension he was seen by cardiology. The patient was told to stop his Viagra 3 times daily and to take a new medications today which he did this morning. The patient says he had some chest pain prior to arrival but he has chest pain on a daily basis and it was not any different. He said he came in because after the pain went away was having prolonged difficulty breathing despite being on home oxygen. No cough. He says he has no pain down his breathing better. ROS All systems reviewed and are negative except as per history of present illness. Medications Home Meds Active Scripts Hydralazine Hcl* (Apresoline*) 50 Mg Tab, 50 MG PO BID for 30 Days, TAB Patient already has supplies. Prov:SHAYY PERRY NP 08/24/18 Sildenafil Citrate* (Revatio*) 20 Mg Tab, 10 MG PO BID, #10 TAB Patient already has supplies. Prov:SHAYY PERRY NP 08/24/18 Furosemide (Lasix) 20 Mg Tab, 20 MG PO DAILY, #30 TAB Patient already has supplies. Prov:SHAYY PERRY NP 08/24/18 Omeprazole* (Omeprazole*) 40 Mg Capsule., 40 MG PO DAILY for 30 Days, CAP 2 Refills Prov:MASON SANDOVAL MD 08/12/18 Reported Medications Allopurinol* (Allopurinol*) 100 Mg Tablet, 100 MG PO DAILY, TAB 05/15/18 Aspirin* (Aspirin* EC) 81 Mg Tablet., 81 MG PO DAILY, TAB 05/15/18 Atorvastatin Calcium* (Atorvastatin Calcium*) 20 Mg Tablet, 20 MG PO QHS, #30 TAB 05/15/18 Discontinued Reported Medications Hydralazine Hcl* (Apresoline*) 50 Mg Tab, 50 MG PO TID TAKE 1 TABLET BY MOUTH THREE TIMES A DAY; 08/07/18 Indomethacin* (Indocin*) 50 Mg Cap, 1 CAP ORAL DAILY 06/30/18 Furosemide* (Furosemide*) 20 Mg Tablet, 20 MG PO BID, #30 TAB 05/15/18 Omeprazole* (Omeprazole*) 40 Mg Capsule., 40 MG PO DAILY, #30 CAP 05/15/18 Discontinued Scripts Sildenafil Citrate* (Revatio*) 20 Mg Tab, 10 MG PO TID, #45 TAB Prov:ROGERS QUINTANA. 06/25/18 Spironolactone* (Aldactone*) 25 Mg Tablet, 25 MG PO DAILY, #30 TAB Prov:SHAYY PERRY YOUTH OFFICER 05/17/18 Allergies Allergies: Coded Allergies: No Known Allergy (Unverified , 08/23/18) PMhx/Soc History of Surgery: Yes (RIGHT EYE CATARACT SURGERY) Anesthesia Reaction: No Hx Neurological Disorder: No Hx Respiratory Disorders: No Hx Cardiac Disorders: Yes (HTN, CHF, PULMONARY HTN) Hx Psychiatric Problems: No Hx Miscellaneous Medical Probl: Yes (diastolic heart failure, HTN, dyslipi demia, gout, severe pulmonary hyperten) Hx Alcohol Use: No Hx Substance Use: No Hx Tobacco Use: No Smoking Status: Never smoker FmHx Family History: No coronary disease Physical Exam Vitals Vital Signs Date Temp Pulse Resp B/P (MAP) Pulse Ox O2 O2 Flow FiO2 Time Delivery Rate 08/26/18 Nasal 2 02:22 Cannula 08/26/18 98.6 99 19 155/81 100 02:09 (105) Physical Exam Const: Well-developed, well-nourished Head: Atraumatic, normocephalic Eyes: Normal Conjunctiva, PERRLA, EOMI, normal sclera, no nystagmus ENT: Normal External Ears, Nose and Mouth, moist mucus membranes. Neck: Full range of motion. No meningismus, no lymphadenopathy. Resp: Clear to auscultation bilaterally, no wheezing, rhonchi, rales Cardio: Regular rate and rhythm, no murmurs, S1 S2 present Abd: Soft, non tender x 4, non distended. Normal bowel sounds, no guarding or rebound, no pulsitile abdominal masses or bruits Skin: No petechiae or rashes, no ecchymosis , no maculopapular rash Back: No midline or flank tenderness Ext: No cyanosis, or edema, FROM x 4, normal inspection, neurovascularly intact x 4 Neur: Awake and alert, STR 5/5 x 4, sensation intact x 4, no focal findings, cerebellum intact Psych: Normal Mood and Affect Result Diagram: 7/14/19 0220 7/14/19 0220 Results 24 hrs Laboratory Tests Test 08/26/18 02:20 White Blood Count 6.3 10^3/ul Red Blood Count 5.90 10^6/ul Hemoglobin 12.4 g/dl Hematocrit 43.0 % Mean Corpuscular Volume 72.9 fl Mean Corpuscular Hemoglobin 21.0 pg Mean Corpuscular Hemoglobin Concent 28.8 g/dl Red Cell Distribution Width 19.9 % Platelet Count 264 10^3/UL Mean Platelet Volume 11.0 fl Immature Granulocytes % 0.200 % Neutrophils % 64.7 % Lymphocytes % 23.5 % Monocytes % 9.4 % Eosinophils % 1.6 % Basophils % 0.6 % Nucleated Red Blood Cells % 0.0 /100WBC Immature Granulocytes # 0.010 10^3/ul Neutrophils # 4.1 10^3/ul Lymphocytes # 1.5 10^3/ul Monocytes # 0.6 10^3/ul Eosinophils # 0.1 10^3/ul Basophils # 0.0 10^3/ul Nucleated Red Blood Cells # 0.0 10^3/ul Prothrombin Time 14.9 Sec Prothrombin Time Ratio 1.2 INR International Normalized Ratio 1.16 Activated Partial Thromboplast Time 26.9 Sec Sodium Level 140 mmol/L Potassium Level 4.2 mmol/L Chloride Level 107 mmol/L Carbon Dioxide Level 20 mmol/L Anion Gap 13 Blood Urea Nitrogen 29 mg/dl Creatinine 1.55 mg/dl Est Glomerular Filtrat Rate mL/min 46 mL/min Glucose Level 91 mg/dl Calcium Level 10.0 mg/dl Total Bilirubin 0.8 mg/dl Direct Bilirubin 0.00 mg/dl Indirect Bilirubin 0.8 mg/dl Aspartate Amino Transf (AST/SGOT) 27 IU/L Alanine Aminotransferase (ALT/SGPT) 13 IU/L Alkaline Phosphatase 111 IU/L Troponin I 0.119 ng/ml B-Type Natriuretic Peptide 6450 PG/ML Total Protein 7.2 g/dl Albumin 4.2 g/dl Globulin 3.00 g/dl Albumin/Globulin Ratio 1.40 Procedures/MDM EKG: Rate/Rhythm: Normal sinus rhythm with inverted T waves in the inferior and anterior leads/precordial QRS, ST, QT: NORMAL [place], QRS, QT] Impression: Abnormal EKG [place] [id number] Radiology Main Line: [phone] DIAGNOSTIC IMAGING REPORT Patient: SUZETTE KRAFT : 1960 Age: 58 Sex: M MR #: [id number] DOS: 08/26/18 0220 Ordering MD: LESLIE LAM DO Location: E/R Room/Bed: PROCEDURE: Single view chest. CLINICAL INDICATION: Chest pain TECHNIQUE: Single view of the chest was obtained COMPARISON: CHEST 08/23/2018; CHEST 08/07/2018; NANETTE CHEST 05/06/2018 FINDINGS: No airspace consolidation, focal infiltrate or evidence of a pleural effusion. There is no pneumothorax. The cardiac silhouette is moderately enlarged. Prominent central pulmonary arteries consistent with pulmonary arterial hypertension. Mediastinal contours are unchanged. Regional bones appear intact. IMPRESSION: 1. Moderately enlarged cardiac silhouette. No evidence for overt failure. 2. Pulmonary arterial hypertension. RPTAT: [facility] Physician Marely Date Time Electronically viewed and signed by Physician Marely on 08/26/2018 02:56 xB/ CC: LESLIE LAM DO [id number] ... Discussed the case with Dr. Miller of panel, he will see the patient in the ER. The patient's labs show a CO2 20 with an elevated BNP that is double what it usually is. Dr. Miller saw the patient and the conclusion is that he probably had some sildenafil in his system still while taking his new medication that asked luis daniel interiano. He may have gotten a little dizzy from it but he currently says he feels better and stable and he prefers to go home He is clinically well-appearing, he was just discharged here and had a full eval with Dr. Rell waggoner of cardiology Departure Diagnosis: Primary Impression: Shortness of breath Additional Impression: Chest pain Chest pain type: unspecified Qualified Codes: R07.9 - Chest pain, unspecified Condition: Stable LESLIE LAM DO Aug 26, 2018 04:02
[2018-08-26 04:30] VITALS: BP 138/102; PULSE 75; RESP 22
== END 2018-08-26 04:39 | disposition home or self-care (01) ==
LOC: E/R 02:05
DX: R06.02 Shortness of breath (principal); R07.9 Chest pain, unspecified; I11.0 Hypertensive heart disease with heart failure; I50.30 Unspecified diastolic (congestive) heart failure; Z79.82 Long term (current) use of aspirin
CPT/HCPCS: 36415; 71045; 80053; 83880; 84484; 85025; 85610; 85730; 93005

== ENCOUNTER 2018-10-07 03:45 | Inpatient (IN) | payer OTHER ==
[~2018-10-07] VITALS: Ht 167.6 cm; Wt 84.2 kg
[~2018-10-07 03:45] MED LIST changes: +AMLO-145 PO; +DOCU-144 PO; -FURO20TA3 PO; +HYDR-4011 PO; -INDO-39 ORAL; +MACI10TA PO; +MED4DP PO; -SPIR25TA PO
[2018-10-07] MEDS ORDERED: DIPHENHYDRAMINE 50 MG INJ IV ONE (05:30)
[2018-10-07] MEDS ORDERED: METOCLOPRAMIDE 10 MG INJ IV ONE (05:30)
[2018-10-07] MEDS ORDERED: SOD CHLORIDE 0.9% 500 ML IV ONE (05:30)
[2018-10-07] MEDS ORDERED: ASPIRIN 81 MG TAB PO ONE (05:30)
[2018-10-07] MEDS ORDERED: HYDROCODONE/APAP (5/325) TAB PO PRN (06:30)
[2018-10-07] MEDS ORDERED: ONDANSETRON 4 MG INJ IV PRN ×2 (06:30→07:00)
[2018-10-07] MEDS ORDERED: BISACODYL (EC) 5 MG TAB PO PRN (06:30)
[2018-10-07] MEDS ORDERED: ACETAMINOPHEN 325 MG TAB PO PRN ×2 (06:30→07:00)
[2018-10-07] MEDS ORDERED: NITROGLYCERIN (SL) 0.4 MG TAB SL PRN (06:30)
[2018-10-07] MEDS ORDERED: DOCUSATE SODIUM 100 MG CAP PO PRN (06:30)
[2018-10-07] MEDS ORDERED: NACL 0.9% 3 ML SYG IV SCH (06:30)
[2018-10-07] MEDS ORDERED: morphine 2 MG INJ IV PRN (06:30)
[2018-10-07 08:30] VITALS: Ht 167.6 cm; Wt 84.2 kg
[2018-10-07] MEDS ORDERED: SILDENAFIL 20 MG TAB PO SCH (09:00)
[2018-10-07] MEDS ORDERED: NON-FORMULARY/PATIENT OWN MED (Omeprazole* 40 MG) PO SCH (09:00)
[2018-10-07] MEDS: ASPIRIN (EC) 81 MG TAB PO SCH (09:46)
[2018-10-07] MEDS: ALLOPURINOL 100 MG TAB PO SCH (09:49)
[2018-10-07] MEDS: FUROSEMIDE 20 MG TAB PO SCH (09:49)
[2018-10-07] MEDS: DOCUSATE SODIUM 100 MG CAP PO SCH ×3 (09:50→20:39)
[2018-10-07] MEDS ORDERED: POTASSIUM CHLORIDE (SR) 20 MEQ TAB PO STA (10:35)
[2018-10-07 11:33] VITALS: BP 141/93; PULSE 56; RESP 18
[2018-10-07 15:45] VITALS: BP 118/82; PULSE 73; RESP 18
[2018-10-07 20:00] VITALS: BP 130/84; PULSE 72; RESP 20
[2018-10-07] MEDS: SILDENAFIL 20 MG TAB PO SCH (20:39)
[2018-10-07] MEDS: ATORVASTATIN 20 MG TAB PO SCH (20:40)
[2018-10-07 23:57] VITALS: BP 139/99; PULSE 73; RESP 20
[2018-10-08 04:00] VITALS: BP 135/63; PULSE 71; RESP 20
[2018-10-08] MEDS: PANTOPRAZOLE (EC) 40 MG TAB PO SCH (06:00)
[2018-10-08 07:30] VITALS: BP 182/113; PULSE 64; RESP 20
[2018-10-08] MEDS: DOCUSATE SODIUM 100 MG CAP PO SCH ×3 (08:58→20:54)
[2018-10-08] MEDS: ASPIRIN (EC) 81 MG TAB PO SCH (09:00)
[2018-10-08] MEDS: ALLOPURINOL 100 MG TAB PO SCH (09:00)
[2018-10-08] MEDS: FUROSEMIDE 20 MG TAB PO SCH (09:00)
[2018-10-08] MEDS: SILDENAFIL 20 MG TAB PO SCH ×3 (09:01→20:53)
[2018-10-08 11:41] VITALS: BP 156/101; PULSE 77; RESP 18
[2018-10-08 15:42] VITALS: BP 153/100; PULSE 78; RESP 20
[2018-10-08] MEDS ORDERED: [UNRECOGNIZED DRUG - OTHER] XX SCH (16:00)
[2018-10-08] MEDS ORDERED: MACITENTAN XX SCH (16:30)
[2018-10-08] MEDS ORDERED: hydrALAzine 20 MG INJ IV PRN (18:00)
[2018-10-08] MEDS: AMLODIPINE 5 MG TAB PO SCH (18:46)
[2018-10-08] MEDS: OPSUMIT 10 MG TABLET PO SCH (18:47)
[2018-10-08 20:00] VITALS: BP 119/92; PULSE 72; RESP 21
[2018-10-08] MEDS: ATORVASTATIN 20 MG TAB PO SCH (20:53)
[2018-10-09] VITALS: BP 132/91; PULSE 73; RESP 20
[2018-10-09 04:00] VITALS: BP 166/109; PULSE 60; RESP 21
[2018-10-09] MEDS: PANTOPRAZOLE (EC) 40 MG TAB PO SCH (06:09)
[2018-10-09 07:32] VITALS: BP 138/94; PULSE 80; RESP 20
[2018-10-09] MEDS: OPSUMIT 10 MG TABLET PO SCH (09:00)
[2018-10-09] MEDS: DOCUSATE SODIUM 100 MG CAP PO SCH ×3 (09:35→20:35)
[2018-10-09] MEDS: FUROSEMIDE 20 MG TAB PO SCH (09:36)
[2018-10-09] MEDS: ALLOPURINOL 100 MG TAB PO SCH (09:36)
[2018-10-09] MEDS: AMLODIPINE 5 MG TAB PO SCH (09:37)
[2018-10-09] MEDS: ASPIRIN (EC) 81 MG TAB PO SCH (09:37)
[2018-10-09] MEDS: SILDENAFIL 20 MG TAB PO SCH ×3 (09:39→20:35)
[2018-10-09 11:43] VITALS: BP 114/72; PULSE 82; RESP 21
[2018-10-09 15:25] VITALS: BP 117/82; PULSE 77; RESP 18
[2018-10-09 19:50] VITALS: BP 140/90; PULSE 79; RESP 19
[2018-10-09] MEDS: ATORVASTATIN 20 MG TAB PO SCH (20:35)
[2018-10-10] VITALS (7 sets, daily range): BP systolic 109–148; BP diastolic 73–98; PULSE 73–81; RESP 19–24
[2018-10-10] MEDS: PANTOPRAZOLE (EC) 40 MG TAB PO SCH (06:05)
[2018-10-10] MEDS: OPSUMIT 10 MG TABLET PO SCH (09:00)
[2018-10-10] MEDS: ALLOPURINOL 100 MG TAB PO SCH (09:03)
[2018-10-10] MEDS: DOCUSATE SODIUM 100 MG CAP PO SCH ×3 (09:03→20:44)
[2018-10-10] MEDS: AMLODIPINE 5 MG TAB PO SCH (09:05)
[2018-10-10] MEDS: SILDENAFIL 20 MG TAB PO SCH ×3 (09:05→20:45)
[2018-10-10] MEDS: FUROSEMIDE 20 MG TAB PO SCH (09:06)
[2018-10-10] MEDS: ASPIRIN (EC) 81 MG TAB PO SCH (09:06)
[2018-10-10] MEDS ORDERED: ALBUTEROL/IPRATROPIUM (NEB) 3 ML AMP HHN PRN (11:00)
[2018-10-10] MEDS ORDERED: FUROSEMIDE 40 MG INJ IV ONE (13:00)
[2018-10-10] MEDS: METHYLPREDNISOLONE 40 MG INJ IV SCH ×2 (13:43→20:47)
[2018-10-10] MEDS: ALBUTEROL/IPRATROPIUM (NEB) 3 ML AMP HHN SCH ×2 (14:36→19:53)
[2018-10-10] MEDS: BUDESONIDE (NEB) 0.5MG/2ML AMP HHN SCH (19:53)
[2018-10-10] MEDS: ATORVASTATIN 20 MG TAB PO SCH (20:45)
[2018-10-11] VITALS: BP 121/87; PULSE 76; RESP 20
[2018-10-11 04:00] VITALS: BP 123/83; PULSE 73; RESP 20
[2018-10-11] MEDS: PANTOPRAZOLE (EC) 40 MG TAB PO SCH (05:34)
[2018-10-11 08:07] VITALS: BP 156/98; PULSE 85; RESP 20
[2018-10-11] MEDS: ALBUTEROL/IPRATROPIUM (NEB) 3 ML AMP HHN SCH ×3 (08:19→23:24)
[2018-10-11] MEDS: BUDESONIDE (NEB) 0.5MG/2ML AMP HHN SCH ×2 (08:19→19:49)
[2018-10-11] MEDS: OPSUMIT 10 MG TABLET PO SCH (09:00)
[2018-10-11] MEDS: DOCUSATE SODIUM 100 MG CAP PO SCH ×2 (09:44→13:12)
[2018-10-11] MEDS: ALLOPURINOL 100 MG TAB PO SCH (09:44)
[2018-10-11] MEDS: ASPIRIN (EC) 81 MG TAB PO SCH (09:45)
[2018-10-11] MEDS: METHYLPREDNISOLONE 40 MG INJ IV SCH ×2 (09:45→21:08)
[2018-10-11] MEDS: AMLODIPINE 5 MG TAB PO SCH (09:45)
[2018-10-11] MEDS: SILDENAFIL 20 MG TAB PO SCH ×3 (09:49→21:09)
[2018-10-11 12:22] VITALS: BP 119/76; PULSE 80; RESP 20
[2018-10-11 16:14] VITALS: BP 116/72; PULSE 82; RESP 20
[2018-10-11] MEDS: FUROSEMIDE 20 MG TAB PO SCH (17:25)
[2018-10-11 20:30] VITALS: BP 131/79; PULSE 80; RESP 20
[2018-10-11] MEDS: ATORVASTATIN 20 MG TAB PO SCH (21:08)
[2018-10-12] MEDS: FUROSEMIDE 20 MG TAB PO SCH ×2 (05:33→18:17)
[2018-10-12] MEDS: PANTOPRAZOLE (EC) 40 MG TAB PO SCH (05:33)
[2018-10-12] MEDS: BUDESONIDE (NEB) 0.5MG/2ML AMP HHN SCH ×2 (07:26→20:19)
[2018-10-12] MEDS: ALBUTEROL/IPRATROPIUM (NEB) 3 ML AMP HHN SCH ×2 (07:26→15:11)
[2018-10-12 07:53] VITALS: PULSE 80; RESP 17
[2018-10-12 08:19] VITALS: BP 130/83; RESP 17
[2018-10-12] MEDS: ASPIRIN (EC) 81 MG TAB PO SCH (08:24)
[2018-10-12] MEDS: SILDENAFIL 20 MG TAB PO SCH ×3 (08:25→21:04)
[2018-10-12] MEDS: DOCUSATE SODIUM 100 MG CAP PO SCH (08:25)
[2018-10-12] MEDS: AMLODIPINE 5 MG TAB PO SCH (08:25)
[2018-10-12] MEDS: ALLOPURINOL 100 MG TAB PO SCH (08:25)
[2018-10-12] MEDS: METHYLPREDNISOLONE 40 MG INJ IV SCH ×2 (08:25→21:03)
[2018-10-12] MEDS: OPSUMIT 10 MG TABLET PO SCH (08:26)
[2018-10-12 11:30] VITALS: BP 128/74; PULSE 91; RESP 16
[2018-10-12 15:26] VITALS: BP 101/69; PULSE 89; RESP 18
[2018-10-12 20:00] VITALS: BP 111/70; PULSE 78; RESP 18
[2018-10-12] MEDS: ATORVASTATIN 20 MG TAB PO SCH (21:04)
[2018-10-12 23:36] VITALS: BP 132/85; PULSE 68; RESP 19
[2018-10-13] MEDS: ALBUTEROL/IPRATROPIUM (NEB) 3 ML AMP HHN SCH ×4 (00:13→23:30)
[2018-10-13 03:19] VITALS: BP 135/91; PULSE 68; RESP 20
[2018-10-13] MEDS: PANTOPRAZOLE (EC) 40 MG TAB PO SCH (05:20)
[2018-10-13] MEDS: FUROSEMIDE 20 MG TAB PO SCH ×2 (05:21→18:00)
[2018-10-13] MEDS: BUDESONIDE (NEB) 0.5MG/2ML AMP HHN SCH ×2 (07:51→20:49)
[2018-10-13 08:03] VITALS: BP 127/77; PULSE 76; RESP 20
[2018-10-13] MEDS: ALLOPURINOL 100 MG TAB PO SCH (08:10)
[2018-10-13] MEDS: ASPIRIN (EC) 81 MG TAB PO SCH (08:10)
[2018-10-13] MEDS: DOCUSATE SODIUM 100 MG CAP PO SCH (08:10)
[2018-10-13] MEDS: METHYLPREDNISOLONE 40 MG INJ IV SCH (08:10)
[2018-10-13] MEDS: SILDENAFIL 20 MG TAB PO SCH ×3 (08:14→21:36)
[2018-10-13 08:15] VITALS: BP 128/90; PULSE 83
[2018-10-13] MEDS: AMLODIPINE 5 MG TAB PO SCH (08:15)
[2018-10-13] MEDS: OPSUMIT 10 MG TABLET PO SCH (08:15)
[2018-10-13] MEDS ORDERED: predniSONE 20 MG TAB PO SCH (09:30)
[2018-10-13 11:29] VITALS: BP 106/74; PULSE 94; RESP 20
[2018-10-13 14:55] VITALS: BP 121/77; PULSE 82; RESP 20
[2018-10-13 20:15] VITALS: BP 111/87; PULSE 75; RESP 19
[2018-10-13] MEDS: ATORVASTATIN 20 MG TAB PO SCH (21:36)
[2018-10-14 00:18] VITALS: BP 130/83; PULSE 84; RESP 19
[2018-10-14 03:29] VITALS: BP 118/86; PULSE 81; RESP 18
[2018-10-14] MEDS: PANTOPRAZOLE (EC) 40 MG TAB PO SCH (06:06)
[2018-10-14] MEDS: FUROSEMIDE 20 MG TAB PO SCH ×2 (06:07→17:39)
[2018-10-14 07:30] VITALS: BP 149/101; PULSE 73; RESP 18
[2018-10-14] MEDS: BUDESONIDE (NEB) 0.5MG/2ML AMP HHN SCH ×2 (08:22→19:38)
[2018-10-14] MEDS: ALBUTEROL/IPRATROPIUM (NEB) 3 ML AMP HHN SCH ×2 (08:22→15:03)
[2018-10-14] MEDS: OPSUMIT 10 MG TABLET PO SCH (09:00)
[2018-10-14] MEDS ORDERED: predniSONE 20 MG TAB PO SCH (09:00)
[2018-10-14] MEDS: ASPIRIN (EC) 81 MG TAB PO SCH (09:04)
[2018-10-14] MEDS: SILDENAFIL 20 MG TAB PO SCH ×3 (09:04→20:10)
[2018-10-14] MEDS: ALLOPURINOL 100 MG TAB PO SCH (09:04)
[2018-10-14] MEDS: AMLODIPINE 5 MG TAB PO SCH (09:04)
[2018-10-14] MEDS: DOCUSATE SODIUM 100 MG CAP PO SCH (09:05)
[2018-10-14 11:54] VITALS: BP 133/83; PULSE 79; RESP 18
[2018-10-14 16:05] VITALS: BP 108/76; PULSE 80; RESP 20
[2018-10-14] MEDS: ATORVASTATIN 20 MG TAB PO SCH (20:10)
[2018-10-14 20:15] VITALS: BP 108/75; PULSE 78; RESP 19
== END 2018-10-14 20:23 | disposition home or self-care (01) | DRG 189 ==
LOC: E/R 03:45 → 6WM 06:38
PROVIDERS: ADMIT Family Medicine; ATTEND Internal Medicine
DX: J96.01 Acute respiratory failure with hypoxia (principal); I11.0 Hypertensive heart disease with heart failure; I27.29 Other secondary pulmonary hypertension; I50.810 Right heart failure, unspecified; Z99.81 Dependence on supplemental oxygen; M62.50 Muscle wasting and atrophy, not elsewhere classified, unspecified site; K21.9 Gastro-esophageal reflux disease without esophagitis; M1A.9XX0 Chronic gout, unspecified, without tophus (tophi); E78.5 Hyperlipidemia, unspecified; I45.4 Nonspecific intraventricular block; R07.89 Other chest pain; R42 Dizziness and giddiness; R51 Headache; Z79.82 Long term (current) use of aspirin; Z86.12 Personal history of poliomyelitis
CPT/HCPCS: 36415; 71045; 80048; 80053; 80061; 82550; 82553; 83036; 83690; 83735; 83880; 84100; 84443; 84484; 84560; 85025; 85610; 85651; 86430; 93005; 93306; 94640; 94664; 96374; 96375; 97116; 97162; 97530; J0360; J1200; J1940; J2765; J2920; J7040; J7512